=== PATIENT | male | born 1940 | race Caucasian/White ===

== ENCOUNTER 2018-03-13 07:22 | Emergency (ER) | payer MEDICARE, OTHER, SELFPAY ==
[2018-03-13] VITALS (8 sets, daily range): BP systolic 138–160; BP diastolic 81–102; PULSE 67–95; RESP 15–18; TEMP 36.4; O2SAT 97–100; BMI 26.9
--- NOTE | 2018-03-13 07:54 | DI.CT.S_ITS ---
PROCEDURE: CT HEAD/BRAIN WO CON INDICATIONS: dizziness TECHNIQUE: Noncontrast 4.5 mm thick angled axial sections acquired from the foramen magnum to the vertex, with coronal and sagittal reformats. For radiation dose reduction, the following was used: automated exposure control, adjustment of mA and/or kV according to patient size. COMPARISON: None. FINDINGS: Image quality: Excellent. CSF spaces: Basal cisterns are patent. No extra-axial fluid collections. The ventricles are symmetric in size and shape. Brain: No intracranial bleeds or masses. There is cerebral volume loss for age, with resultant ventricular and sulcal prominence. There are periventricular and deep white matter chronic small vessel ischemic changes. There is intracranial internal carotid artery atherosclerosis. Skull and face: Calvarium and visualized facial bones appear intact, without suspicious lesions. Sinuses: There is bilateral ethmoid air cell and sphenoid sinus disease. IMPRESSION: Bilateral ethmoid and sphenoid sinus disease. No acute intracranial process. Dictated by: Pankaj Wood M.D. on 03/13/2018 at 9:32 Approved by: Pankaj Wood M.D. on 03/13/2018 at 9:34
[2018-03-13 07:57] LABS: Add Manual Diff / Slide Review NO; Basophils Percent Auto 0.6 % (0-2); Eosinophils Percent Auto 8.9 % (2-4); Hematocrit 45.3 % (41-53); Lymphocytes Percent Auto 16.5 % (25-40); Mean Corpuscular HGB Conc 33.1 % (30-36); Mean Corpuscular Hemoglobin 31.6 PG (26-34); Mean Corpuscular Volume 95.5 fL (80-100); Monocytes Percent Auto 6.5 % (3-14); Neutrophils Absolute Auto 4900 /uL (3000-5900); Neutrophils Percent Auto 67.5 % (50-75); Platelet Count 157 X10^3/uL (150-400); Red Blood Cell Count 4.74 X10^6/uL (4.5-5.9); White Blood Cell Count 7.3 X10^3/uL (4.5-11.0)
[2018-03-13 08:07] LABS: BUN Creatinine Ratio 37.5 (6-22); Blood Urea Nitrogen 30 mg/dL (9-20); Calcium 9.2 mg/dL (8.4-10.2); Carbon Dioxide 26 mmol/L (22-32); Chloride 102 mmol/L (98-107); Estimated Glomerular Filt Rate > 60.0 mL/min (>60); Glucose 109 mg/dL (80-110); HEMOLYSIS 18 (0-50); Potassium 4.7 mmol/L (3.4-5.1); Sodium 139 mmol/L (137-145)
--- NOTE | 2018-03-13 08:15 | ED_ITS ---
HPI - Dizziness General Chief Complaint: Dizziness Stated Complaint: Pt states dizziness Time Seen by Provider: 03/13/18 07:46 Source: patient and family Mode of arrival: ambulatory Limitations: no limitations History of Present Illness HPI Narrative: Patient presents to the emergency department with a chief complaint of dizziness upon waking. He has episodes where the dizziness is much more intense and he feels like he may pass out. He states his dizziness is worse upon sitting or standing and improves when lying flat. He denies recent upper respiratory infection nor runny nose or sore throat. He denies any focal neurologic findings such as numbness, tingling, or weakness. He denies chest pain or shortness of breath. He denies any recent nausea, vomiting or diarrhea. He denies any medication change. He states when he woke up his dizziness was described as the room spinning intensely. Now he states it is just a feeling of lightheadedness. MD complaint: dizziness and lightheadedness Onset (ago): hour(s) Timing: awoke with symptoms Description: sense of movement, room spinning, lightheadedness and off-balance History of similar episodes: Yes History of trauma: No Severity: moderate Relieving factors: remaining still Exacerbating factors: movement Associated symptoms: ataxia Related Data Home Medications Medication Instructions Recorded Confirmed Glucosamine Sulfate (GLUCOSAMINE) 500 mg PO QDAY #0 01/26/11 03/13/18 dutasteride [Avodart] 0.5 mg PO QDAY #0 01/26/11 03/13/18 tamsulosin [Flomax] 0.4 mg PO QDAY #0 01/27/11 03/13/18 Fish Oil (Fish Oil 500 MG Softgel) 1,000 mg PO Q DAY #0 08/04/11 03/13/18 metoprolol succinate 25 mg PO QDAY #0 06/30/16 03/13/18 Previous Rx's Medication Instructions Recorded Glucose: Test Strips 0 str QDAY #100 06/29/17 levothyroxine 0.1 mg PO QAM #90 tab 06/29/17 metformin [Glucophage] 500 mg PO BIDCC #180 tab 06/29/17 Allergies Allergy/AdvReac Type Severity Reaction Status Date / Time No Known Drug Allergies Allergy Verified 03/13/18 09:17 Review of Systems Review of Systems All systems reviewed & are unremarkable except as noted in HPI and below Constitutional Denies chills, Denies fever(s), Denies lethargy and Denies weakness Eyes Denies change in vision, Denies eye discharge, Denies irritation and Denies loss of vision ENT Ears, Nose, Mouth, and Throat: Denies change in voice, Reports dizziness, Denies neck pain and Denies sore throat Cardiovascular Denies chest pain, Denies irregular heart rhythm, Denies lightheadedness, Denies palpitations, Denies dyspnea, Denies dyspnea on exertion and Denies orthopnea Respiratory Denies cough, Denies dyspnea, Denies dyspnea on exertion and Denies wheezing Gastrointestinal Gastrointestinal: Denies abdominal pain, Denies change in bowel habits, Denies diarrhea, Denies nausea and Denies vomiting Genitourinary Denies hematuria, Denies flank pain, Denies urinary incontinence and Denies urinary urgency Musculoskeletal Denies neck pain Integumentary/Breasts Denies pruritus, Denies erythema, Denies rash and Denies wounds Neurologic Denies confusion, Reports dizziness, Denies loss of vision and Denies weakness Psychiatric Denies anxiety, Denies confusion, Denies depression, Denies homicidal ideation and Denies suicidal ideation Endocrine Denies palpitations Hematologic/Lymphatic Denies easy bruising Allergic/Immunologic Denies wheezing PFSH Medical History Atrial fibrillation and flutter (Acute) GI bleed (Acute) HTN (hypertension) (Acute) Surgical History History of tonsillectomy Status post colectomy Status post coronary artery bypass graft Social History Smoking Status: Never smoker Exam Narrative Exam Narrative: Pleasant 78M in mild distress Initial Vital Signs Initial Vital Signs: Vital Signs Temperature 97.5 F L 03/13/18 07:33 Pulse Rate 84 03/13/18 07:33 Respiratory Rate 16 03/13/18 07:33 Blood Pressure 160/101 H 03/13/18 07:33 Pulse Oximetry 100 03/13/18 07:33 Const General: cooperative and well developed Nutritional Appearance: well nourished Orientation: alert, awake, oriented x3 and not confused [facility] Head: normocephalic and atraumatic Ears: external ears normal and TM's normal bilaterally Nose: external nose normal and No nasal discharge Face and sinus: sinuses nontender, face symmetric, no sinus tenderness and No dry mucous membranes Mouth: oral mucosae normal and moist mucous membranes Teeth and gingiva: dentition normal Throat: tonsils normal and uvula midline Eyes General: appearance normal, both eyes and all related structures Eyelids: eyelids normal Conjunctivae: conjunctivae normal Sclera: sclerae normal Pupils: PERRL EOM: EOM intact bilaterally Other: No nystagmus Neck Neck: normal visual inspection, trachea midline, No lymphadenopathy, No midline deformity and No JVD Lymphatic: No lymphedema Chest Chest: normal inspection of the chest Resp Effort & Inspection: normal respiratory effort, able to speak in complete sentences, no respiratory distress and no use of accessory muscles Auscultation: clear to auscultation bilaterally, no rales, no rhonchi and no wheezes Cardio Rate: regular rate Rhythm: abnormal rhythm GI Inspection: non-distended Palpation: soft, no hepatosplenomegaly, No guarding, No pulsatile mass and No tender Auscultation: normal bowel sounds Back/Spine/Pelvis Back: No CVA tenderness Cervical Spine: cervical ROM normal and No pain with cervical ROM Thoracic/Lumbar Spine: thoracic and lumbar spine normal to inspection Skin General: no rashes or lesions noted, No jaundice and No petechiae Neuro General: alert, oriented x3, gait normal and no focal motor deficits Speech: speech normal Scores CHADS-VASc Congestive heart failure: no Hypertension: yes Age 75 years or older: yes Diabetes mellitus: yes Stroke, TIA, or TE: no Vascular disease: yes Age 65 to 74 years: no Sex category (female): Male CHADS-VASc Score: 5 NIH Stroke Scale Level of Conciousness: Alert, keenly responsive Ask month/age: Answers both questions correctly. Open/close eyes, close hand: Performs both tasks correctly Best gaze horizontal: Normal Visual larkin: No visual loss Facial palsy: Normal symetrical movement Left arm drift: No drift for full 10 sec Right arm drift: No drift for full 10 sec Left leg drift: No drift for full 10 sec Right leg drift: No drift for full 10 sec Limb ataxia: Absent Sensory on face/arms/legs: Normal, no sensory loss Best language: No aphasia, normal Dysarthria: Normal Extinction or inattention: No abnormality Total NIH Stroke scale score: 0 Course Orders Ordered: ED Orders 03/13/18 07:46 Basic Metabolic Panel Stat Complete Blood Count AUTO DIFF Stat Troponin I Stat 03/13/18 07:54 CT head/brain wo con Stat Sodium Chloride (Normal Saline 0.9%) 1,000 mls @ 150 mls/hr IV CONT REYNALDO Last Admin: 03/13/18 08:21 Dose: 150 mls/hr Discontinued Medications Sodium Chloride (Normal Saline 0.9%) 1,000 mls @ 500 mls/hr IV BOLUS ONE Stop: 03/13/18 10:44 Reevaluation(s) Reevaluation #1: HINTS Exam: Head Impulse: No saccade, normal smooth eye motion to center Nystagmus: None Test of Skew: No saccade Reevaluation #2: 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 The patient does complain of worsening symptoms during these pauses Time: 08:32 Reevaluation #3: Patient does state that he is feeling bit after fluids. He was orthostatic positive with a heart rate rising from the 60s up into the mid 90s. His blood pressure stayed the same in all 3 positions. He did admit to feeling quite dizzy upon standing. Time: 09:30 Vital Signs - 8 hr 03/13/18 07:33 03/13/18 07:53 03/13/18 08:46 Temperature 97.5 F L 97.5 F L Pulse Rate 84 84 Pulse Rate [Orthostatic Lying] 67 Pulse Rate [Orthostatic Sitting] Pulse Rate [Orthostatic Standing] Respiratory Rate 16 16 Blood Pressure 160/101 H 160/101 H Blood Pressure [Orthostatic Lying] 138/86 H Blood Pressure [Orthostatic Sitting] Blood Pressure [Orthostatic Standing] Blood Pressure [Right Arm] Pulse Oximetry 100 100 03/13/18 08:48 03/13/18 10:42 03/13/18 10:45 Temperature Pulse Rate 76 77 Pulse Rate [Orthostatic Lying] Pulse Rate [Orthostatic Sitting] 76 Pulse Rate [Orthostatic Standing] 95 H Respiratory Rate 15 Blood Pressure Blood Pressure [Orthostatic Lying] Blood Pressure [Orthostatic Sitting] 143/88 H Blood Pressure [Orthostatic Standing] 150/99 H Blood Pressure [Right Arm] 141/86 H 139/82 H Pulse Oximetry 98 97 03/13/18 10:46 Temperature Pulse Rate 76 Pulse Rate [Orthostatic Lying] Pulse Rate [Orthostatic Sitting] Pulse Rate [Orthostatic Standing] Respiratory Rate 15 Blood Pressure Blood Pressure [Orthostatic Lying] Blood Pressure [Orthostatic Sitting] Blood Pressure [Orthostatic Standing] Blood Pressure [Right Arm] 152/102 H Pulse Oximetry 97 MDM - Dizziness Differential Diagnosis Likely benign paroxysmal positional vertigo, orthostatic hypotension, vertebral basilar insufficiency, cerebrovascular accident, acute vestibular neuronitis and transient cerebral ischemia Medical Records Attestation: I reviewed the patient's medical records. Lab Data Attestation: I reviewed the patient's lab results. Result diagrams: 03/13/18 07:46 03/13/18 07:46 Lab Results 03/13/18 03/13/18 Range/Units 07:46 07:46 WBC 7.3 (4.5-11.0) X10^3/uL RBC 4.74 (4.5-5.9) X10^6/uL Hgb 15.0 (13.5-17.5) g/dL Hct 45.3 (41-53) % MCV 95.5 (80-100) fL MCH 31.6 (26-34) PG MCHC 33.1 (30-36) % RDW 14.0 (11.6-14.8) % Plt Count 157 (150-400) X10^3/uL Neut % (Auto) 67.5 (50-75) % Lymph % (Auto) 16.5 L (25-40) % Gilliam % (Auto) 6.5 (3-14) % Eos % (Auto) 8.9 H (2-4) % Baso % (Auto) 0.6 (0-2) % Neut # (Auto) 4900 (2076-2322) /uL Sodium 139 (137-145) mmol/L Potassium 4.7 (3.4-5.1) mmol/L Chloride 102 (98-107) mmol/L Carbon Dioxide 26 (22-32) mmol/L BUN 30 H (9-20) mg/dL Creatinine 0.80 (0.66-1.25) mg/dL Estimated GFR > 60.0 (>60) mL/min BUN/Creatinine Ratio 37.5 H (6-22) Glucose 109 (80-110) mg/dL Calcium 9.2 (8.4-10.2) mg/dL Troponin I < 0.012 (0.01-0.034) ng/mL Imaging Data CT scan - head: My impression: COLLIN Radiologist's impression: PROCEDURE: CT HEAD/BRAIN WO CON INDICATIONS: dizziness TECHNIQUE: Noncontrast 4.5 mm thick angled axial sections acquired from the foramen magnum to the vertex, with coronal and sagittal reformats. For radiation dose reduction, the following was used: automated exposure control, adjustment of mA and/or kV according to patient size. COMPARISON: None. FINDINGS: Image quality: Excellent. CSF spaces: Basal cisterns are patent. No extra-axial fluid collections. The ventricles are symmetric in size and shape. Brain: No intracranial bleeds or masses. There is cerebral volume loss for age , with resultant ventricular and sulcal prominence. There are periventricular and deep white matter chronic small vessel ischemic changes. There is intracranial internal carotid artery atherosclerosis. Skull and face: Calvarium and visualized facial bones appear intact, without suspicious lesions. Sinuses: There is bilateral ethmoid air cell and sphenoid sinus disease. IMPRESSION: Bilateral ethmoid and sphenoid sinus disease. No acute intracranial process. Dictated by: Pankaj Wood M.D. on 03/13/2018 at 9:32 Approved by: Pankaj Wood M.D. on 03/13/2018 at 9:34 ECG Data Attestation: I personally reviewed and interpreted this ECG as follows: Interpretation: AFib in the 60s 70s without ischemia or ectopy MDM Narrative Medical decision making narrative: Multiple etiologies of dizziness considered, many mentioned above. Stroke was considered, CT was normal, NIH stroke scale was normal and symptoms improved after fluids. A rib media was considered but patient remained in a stable AFib for the duration of his visit. Patient was orthostatic by vitals and complaint there for anemia and dehydration were considered. Blood work would suggest no anemia and subtle dehydration. Patient exhibited complete resolution of symptoms after fluids, furthermore he admits to changing his oral intake to fluids because he urinates too frequently when he drinks significant fluid Discharge Plan Departure Patient Disposition: Home, Self-Care Clinical Impression: Acute dehydration, Dizziness Instructions: DI for Dehydration -- Adult, DI for Dizziness-Nonvertigo Activity Restrictions/Additional Instructions: *You have been diagnosed with [ dizziness, dehydration ] *What to do: *Continue to take medications as directed *Follow up with your primary care provider in 2-3 days, call tomorrow for an appointment *Return to ER if you should haveany new, worsening or concerning symptoms Prescriptions: No Action dutasteride [Avodart] 0.5 MG capsule 0.5 mg PO QDAY Qty: 0 RF: 0 Glucosamine Sulfate (GLUCOSAMINE) 500 mg PO QDAY Qty: 0 RF: 0 tamsulosin [Flomax] 0.4 MG capsule,extended release 24hr 0.4 mg PO QDAY Qty: 0 RF: 0 Fish Oil (Fish Oil 500 MG Softgel) 1,000 mg PO Q DAY Qty: 0 RF: 0 metoprolol succinate 50 MG tablet extended release 24 hr 25 mg PO QDAY Qty: 0 RF: 0 Glucose: Test Strips QDAY Qty: 100 RF: 3 metformin [Glucophage] 500 MG tablet 500 mg PO BIDCC Qty: 180 RF: 3 levothyroxine 100 MCG tablet 0.1 mg PO QAM Qty: 90 RF: 3
[2018-03-13] MEDS: SODIUM CHLORIDE 0.9% 1,000 ML 150 ML IV (08:21)
[2018-03-13 08:23] LABS: Troponin I < 0.012 ng/mL (0.01-0.034)
== END 2018-03-13 11:18 | disposition home or self-care (01) ==
PROVIDERS: Emergency Provider Emergency Medicine; PCP Family Medicine
DX: E86.0 Dehydration (principal); R42 Dizziness and giddiness
CPT/HCPCS: 70450; 80048; 81003; 82962; 84484; 85025; 93005; 93041; 96360; 96361; 99284; 99285

== ENCOUNTER → 2018-04-05 08:49 | Outpatient (CLI) | payer MEDICARE, OTHER, SELFPAY ==
[2018-04-05 09:29] LABS: Cholesterol 129 mg/dL (140-199); HDL Cholesterol 44 mg/dL (40-60); LDL Cholesterol Calculated 74 mg/dL (<100); Triglycerides 57 mg/dL (35-150)
[2018-04-05 11:17] LABS: Free T3, Triiodothyronine Free 3.19 pg/mL (2.77-5.27); Free T4, Direct Thyroxine 1.11 ng/dL (0.78-2.19)
[2018-04-05 11:30] LABS: Thyroid Stimulating Hormone 3.02 uIU/mL (0.47-4.68)
--- NOTE | 2018-04-26 12:51 | PC.NURSE ---
This gentleman is a visitor at [facility] today with his who is here for treatment. He reported being dizzy and light headed while speaking with another pt. It seemed to resolved to some extent when he sat down. BP @ 1234 was 97/50, HR 69 IR, Sats 95. Recheck @ 1246 was BP 77/48, HR 76 IR, Sats 96. CBGs were 172. He takes metformin BID but has been out for 3 days and had just refilled his rx. 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 Call placed to ED and spoke with Maggie. Explained our policy of calling 911 but it was decided between us that we would escort him by wheelchair for further workup. The above information was relayed to her and pt escorted by Gifty to ED.
== END ==
PROVIDERS: PCP Family Medicine; Visit Provider Family Medicine
DX: E78.2 Mixed hyperlipidemia (principal); I10 Essential (primary) hypertension; I48.1 Persistent atrial fibrillation
CPT/HCPCS: 36415; 80061; 84439; 84443; 84481

== ENCOUNTER 2018-04-26 12:52 | Emergency (ER) | payer MEDICARE, OTHER, SELFPAY ==
[2018-04-26] VITALS (11 sets, daily range): BP systolic 89–133; BP diastolic 53–88; PULSE 63–98; RESP 13–30; TEMP 36.8; O2SAT 96–100
--- NOTE | 2018-04-26 12:59 | ED.DIZZY ---
HPI - Dizziness General Chief Complaint: Dizziness Stated Complaint: LIGHT HEADED Time Seen by Provider: 04/26/18 12:59 Source: patient Mode of arrival: ambulatory Limitations: no limitations History of Present Illness HPI Narrative: 78-year-old male presents to the emergency department with chief complaint of sudden-onset dizziness upon standing this morning. He has felt completely fine past few days, and felt fine this morning. 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 He denies any recent illness involving nausea, vomiting or diarrhea. He denies any changes medications. He denies any recent chest pain or shortness of breath. He does state that on occasion he has dark stools. MD complaint: dizziness Onset (ago): minute(s) Timing: sudden onset Description: lightheadedness History of similar episodes: No History of trauma: No Severity: mild Relieving factors: remaining still Exacerbating factors: position Associated symptoms: denies other symptoms Related Data Home Medications Medication Instructions Recorded Confirmed dutasteride [Avodart] 0.5 mg PO QDAY #0 01/26/11 04/26/18 glucosamine sulfate [Glucosamine] 500 mg PO DAILY #0 01/26/11 04/26/18 omega [id number] oil [Fish Oil] 1,000 mg PO Q DAY #0 08/04/11 04/26/18 metoprolol succinate 25 mg PO QDAY #0 06/30/16 04/26/18 Glucose: Test Strips #1 ea 04/08/18 04/26/18 atorvastatin 40 mg tablet 40 mg PO QPM 04/08/18 04/26/18 ascorbic acid (vitamin C) [Vitamin 500 mg PO DAILY 04/26/18 04/26/18 C] lisinopril 5 mg PO DAILY 04/26/18 04/26/18 omeprazole 20 mg PO DAILY 04/26/18 04/26/18 Previous Rx's Medication Instructions Recorded levothyroxine 0.1 mg PO QAM #90 tab 06/29/17 metformin [Glucophage] 500 mg PO BIDCC #180 tab 06/29/17 tamsulosin 0.4 mg capsule 0.8 mg PO QDAY #180 cap 03/15/18 Allergies Allergy/AdvReac Type Severity Reaction Status Date / Time No Known Drug Allergies Allergy Verified 07/06/18 09:00 Review of Systems Review of Systems All systems reviewed & are unremarkable except as noted in HPI and below Constitutional Denies chills, Denies fever(s), Denies lethargy and Denies weakness Eyes Denies change in vision, Denies eye discharge, Denies irritation and Denies loss of vision ENT Ears, Nose, Mouth, and Throat: Denies change in voice, Denies neck pain and Denies sore throat Cardiovascular Denies chest pain, Denies irregular heart rhythm, Denies lightheadedness, Denies palpitations, Denies dyspnea, Denies dyspnea on exertion and Denies orthopnea Respiratory Denies cough, Denies dyspnea, Denies dyspnea on exertion and Denies wheezing Gastrointestinal Gastrointestinal: Denies abdominal pain, Denies change in bowel habits, Denies diarrhea, Denies nausea and Denies vomiting Genitourinary Denies hematuria, Denies flank pain, Denies urinary incontinence and Denies urinary urgency Musculoskeletal Denies neck pain Integumentary/Breasts Denies pruritus, Denies erythema, Denies rash and Denies wounds Neurologic Denies confusion, Denies loss of vision and Denies weakness Psychiatric Denies anxiety, Denies confusion, Denies depression, Denies homicidal ideation and Denies suicidal ideation Endocrine Denies palpitations Hematologic/Lymphatic Denies easy bruising Allergic/Immunologic Denies wheezing PFSH Medical History Atrial fibrillation (Chronic) BPH (benign prostatic hyperplasia) (Chronic) Atrial fibrillation and flutter (Acute) GI bleed (Acute) HTN (hypertension) (Acute) CKD (chronic kidney disease) (Chronic) Coronary artery disease (Chronic) Diabetes (Chronic) Diverticular disease (Chronic) Hyperlipemia (Chronic) Hypothyroidism (Chronic) Social History Smoking Status: Never smoker alcohol intake: never Exam Initial Vital Signs Initial Vital Signs: Vital Signs Temperature 98.2 F 04/26/18 13:05 Pulse Rate 88 04/26/18 13:05 Respiratory Rate 18 04/26/18 13:05 Blood Pressure 97/61 04/26/18 13:05 Pulse Oximetry 99 04/26/18 13:05 Const General: cooperative and well developed Nutritional Appearance: well nourished Orientation: alert, awake, oriented x3 and not confused [place] Head: normocephalic and atraumatic Ears: external ears normal and TM's normal bilaterally Nose: external nose normal and No nasal discharge Face and sinus: sinuses nontender, face symmetric, no sinus tenderness and No dry mucous membranes Mouth: oral mucosae normal and moist mucous membranes Teeth and gingiva: dentition normal Throat: tonsils normal and uvula midline Eyes General: appearance normal, both eyes and all related structures Eyelids: eyelids normal Conjunctivae: conjunctivae normal Sclera: sclerae normal Pupils: PERRL EOM: EOM intact bilaterally Neck Neck: normal visual inspection, trachea midline, No lymphadenopathy, No midline deformity and No JVD Lymphatic: No lymphedema Chest Chest: normal inspection of the chest Resp Effort & Inspection: normal respiratory effort, able to speak in complete sentences, no respiratory distress and no use of accessory muscles Auscultation: clear to auscultation bilaterally, no rales, no rhonchi and no wheezes Cardio Rate: regular rate Rhythm: regular rhythm Heart Sounds: no click, no gallops, no murmurs and no rubs Pulses: normal peripheral pulses GI Inspection: non-distended Palpation: soft, no hepatosplenomegaly, No guarding, No pulsatile mass and No tender Auscultation: normal bowel sounds Back/Spine/Pelvis Back: No CVA tenderness Cervical Spine: cervical ROM normal and No pain with cervical ROM Thoracic/Lumbar Spine: thoracic and lumbar spine normal to inspection Skin General: no rashes or lesions noted, No jaundice and No petechiae Neuro General: alert, oriented x3, gait normal and no focal motor deficits Speech: speech normal Extrem General: full ROM, no clubbing, cyanosis or edema, no pedal edema and no calf tenderness Psych Appearance: well kempt Mental Status: mental status grossly normal Attitude: cooperative Thought Content: normal and suicidality Judgment: judgment good Course Orders Ordered: ED Orders 04/26/18 13:17 Complete Blood Count AUTO DIFF Stat Comprehensive Metabolic Panel Stat Partial Thromboplastin Time Stat Prothrombin Time INR Stat Type and Screen Stat Discontinued Medications Sodium Chloride (Normal Saline 0.9%) 1,000 mls @ 1,000 mls/hr IV BOLUS ONE Stop: 04/26/18 14:45 Last Infusion: 04/26/18 15:53 Dose: 0 mls/hr Infusion: 04/26/18 15:13 Dose: 1,000 mls/hr Infusion: 04/26/18 14:30 Dose: 150 mls/hr Admin: 04/26/18 13:47 Dose: 1,000 mls/hr Pantoprazole Sodium (Protonix) 40 mg IV NOW ONE Stop: 04/26/18 13:13 Last Admin: 04/26/18 13:23 Dose: 40 mg Reevaluation(s) Reevaluation #1: Patient feels complete resolution of symptoms after fluids. [place] through we did orthostatics that showed a slight elevation of heart rate upon standing and he was symptomatic. He just did ambulation trial through the department after completion of fluids and now feels totally normal. Vital Signs - 8 hr 04/26/18 13:05 04/26/18 13:33 04/26/18 13:39 Temperature 98.2 F Pulse Rate 88 88 78 Pulse Rate [Orthostatic Lying] Pulse Rate [Orthostatic Sitting] Pulse Rate [Orthostatic Standing] Respiratory Rate 18 19 16 Blood Pressure Blood Pressure [Orthostatic Lying] Blood Pressure [Orthostatic Sitting] Blood Pressure [Orthostatic Standing] Blood Pressure [Right Arm] 97/61 89/61 L 89/61 L Pulse Oximetry 99 97 100 04/26/18 14:00 04/26/18 14:44 04/26/18 14:54 Temperature 98.2 F Pulse Rate 98 H 73 98 H Pulse Rate [Orthostatic Lying] Pulse Rate [Orthostatic Sitting] Pulse Rate [Orthostatic Standing] Respiratory Rate 30 H 13 30 H Blood Pressure 99/57 L Blood Pressure [Orthostatic Lying] Blood Pressure [Orthostatic Sitting] Blood Pressure [Orthostatic Standing] Blood Pressure [Right Arm] 99/57 L 92/61 104/57 L Pulse Oximetry 98 96 98 04/26/18 15:02 04/26/18 15:14 04/26/18 16:03 Temperature Pulse Rate 72 63 Pulse Rate [Orthostatic Lying] 66 Pulse Rate [Orthostatic Sitting] 68 Pulse Rate [Orthostatic Standing] 85 Respiratory Rate 18 17 Blood Pressure Blood Pressure [Orthostatic Lying] 104/57 L Blood Pressure [Orthostatic Sitting] 106/53 L Blood Pressure [Orthostatic Standing] 101/68 Blood Pressure [Right Arm] 110/61 110/62 Pulse Oximetry 98 96 04/26/18 16:25 04/26/18 16:43 Temperature Pulse Rate 85 79 Pulse Rate [Orthostatic Lying] Pulse Rate [Orthostatic Sitting] Pulse Rate [Orthostatic Standing] Respiratory Rate 18 18 Blood Pressure 133/88 H Blood Pressure [Orthostatic Lying] Blood Pressure [Orthostatic Sitting] Blood Pressure [Orthostatic Standing] Blood Pressure [Right Arm] Pulse Oximetry 99 99 MDM - Dizziness Lab Data Result diagrams: 04/26/18 13:17 04/26/18 13:17 Lab Results 04/26/18 04/26/18 04/26/18 Range/Units 13:17 13:17 13:17 WBC 7.3 (4.5-11.0) X10^3/uL RBC 4.71 (4.5-5.9) X10^6/uL Hgb 15.0 (13.5-17.5) g/dL Hct 45.1 (41-53) % MCV 95.8 (80-100) fL MCH 31.9 (26-34) PG MCHC 33.3 (30-36) % RDW 13.9 (11.6-14.8) % Plt Count 161 (150-400) X10^3/uL Neut % (Auto) 65.6 (50-75) % Lymph % (Auto) 19.9 L (25-40) % [place] % (Auto) 6.0 (3-14) % Eos % (Auto) 7.7 H (2-4) % Baso % (Auto) 0.8 (0-2) % Neut # (Auto) 4800 (4978-1655) /uL PT 12.3 (10.1-12.7) SECONDS INR 1.1 (0.9-1.3) APTT 30 (26.4-36.2) SECONDS Sodium 138 (137-145) mmol/L Potassium 4.6 (3.4-5.1) mmol/L Chloride 102 (98-107) mmol/L Carbon Dioxide 24 (22-32) mmol/L BUN 23 H (9-20) mg/dL Creatinine 1.00 (0.66-1.25) mg/dL Estimated GFR > 60.0 (>60) mL/min BUN/Creatinine Ratio 23.0 H (6-22) Glucose 185 H (80-110) mg/dL Calcium 9.3 (8.4-10.2) mg/dL Total Bilirubin 0.9 (0.2-1.3) mg/dL AST 30 (17-59) IU/L ALT 21 (21-72) IU/L Alkaline Phosphatase 69 (38-126) U/L Total Protein 6.9 (6.3-8.2) g/dL Albumin 4.3 (3.5-5.0) g/dL Globulin 2.6 (1.7-4.1) g/dL Albumin/Globulin Ratio 1.7 (1.0-2.8) Blood Type Antibody Screen 04/26/18 Range/Units 13:17 WBC (4.5-11.0) X10^3/uL RBC (4.5-5.9) X10^6/uL Hgb (13.5-17.5) g/dL Hct (41-53) % MCV (80-100) fL MCH (26-34) PG MCHC (30-36) % RDW (11.6-14.8) % Plt Count (150-400) X10^3/uL Neut % (Auto) (50-75) % Lymph % (Auto) (25-40) % [place] % (Auto) (3-14) % Eos % (Auto) (2-4) % Baso % (Auto) (0-2) % Neut # (Auto) (7776-2560) /uL PT (10.1-12.7) SECONDS INR (0.9-1.3) APTT (26.4-36.2) SECONDS Sodium (137-145) mmol/L Potassium (3.4-5.1) mmol/L Chloride (98-107) mmol/L Carbon Dioxide (22-32) mmol/L BUN (9-20) mg/dL Creatinine (0.66-1.25) mg/dL Estimated GFR (>60) mL/min BUN/Creatinine Ratio (6-22) Glucose (80-110) mg/dL Calcium (8.4-10.2) mg/dL Total Bilirubin (0.2-1.3) mg/dL AST (17-59) IU/L ALT (21-72) IU/L Alkaline Phosphatase (38-126) U/L Total Protein (6.3-8.2) g/dL Albumin (3.5-5.0) g/dL Globulin (1.7-4.1) g/dL Albumin/Globulin Ratio (1.0-2.8) Blood Type B Positive Antibody Screen Negative Discharge Plan Departure Patient Disposition: Home, Self-Care Clinical Impression: Orthostatic hypotension Discharge Date/Time: 04/26/18 16:44 Interventions: ED Discharge Assessment Last Done: 04/26/18 16:43 Instructions: DI for Dehydration -- Adult Activity Restrictions/Additional Instructions: 1. Drink plenty of fluids with frequent small sips. 2. For the next 24 hours a clear liquid diet is advised. After that please employ a brat diet which would include bananas, rice, apples, toast. 3. Please take medications as directed. 4. Please follow-up with your doctor in the next 1-2 days. Call the office for an appointment. 5. Please return to the emergency Department for any worsening or persistent symptoms, such as increasing pain or fever. Prescriptions: No Action Glucose: Test Strips .ROUTE .MEDSUPPLY Qty: 1 RF: 0 atorvastatin 40 mg tablet 40 mg PO QPM RF: 0 tamsulosin [Flomax] 0.4 mg capsule,extended release 24hr 0.8 mg PO QDAY Qty: 180 RF: 3 glucosamine sulfate [Glucosamine] 500 mg Tablet 500 mg PO DAILY Qty: 0 RF: 0 dutasteride [Avodart] 0.5 MG capsule 0.5 mg PO QDAY Qty: 0 RF: 0 omega [id number]-fish oil [Fish Oil] 1,000 mg (120 mg-180 mg) Capsule 1,000 mg PO Q DAY Qty: 0 RF: 0 metoprolol succinate 50 MG tablet extended release 24 hr 25 mg PO QDAY Qty: 0 RF: 0 metformin [Glucophage] 500 MG tablet 500 mg PO BIDCC Qty: 180 RF: 3 levothyroxine 100 MCG tablet 0.1 mg PO QAM Qty: 90 RF: 3 lisinopril 5 mg tablet 5 mg PO DAILY RF: 0 ascorbic acid (vitamin C) [Vitamin C] 500 mg Tablet 500 mg PO DAILY RF: 0 omeprazole 20 mg Capsule,Delayed Release(Dr/Ec) 20 mg PO DAILY RF: 0 Referrals: Marybel Edwards DO [Primary Care Provider] -
[2018-04-26] MEDS: PANTOPRAZOLE 40 MG VIAL IV (13:23)
[2018-04-26 13:31] LABS: Add Manual Diff / Slide Review NO; Basophils Percent Auto 0.8 % (0-2); Eosinophils Percent Auto 7.7 % (2-4); Hematocrit 45.1 % (41-53); Lymphocytes Percent Auto 19.9 % (25-40); Mean Corpuscular HGB Conc 33.3 % (30-36); Mean Corpuscular Hemoglobin 31.9 PG (26-34); Mean Corpuscular Volume 95.8 fL (80-100); Neutrophils Absolute Auto 4800 /uL (3000-5900); Neutrophils Percent Auto 65.6 % (50-75); Platelet Count 161 X10^3/uL (150-400); Red Blood Cell Count 4.71 X10^6/uL (4.5-5.9); Red Cell Distribution Width 13.9 % (11.6-14.8); White Blood Cell Count 7.3 X10^3/uL (4.5-11.0)
[2018-04-26 13:36] LABS: INR 1.1 (0.9-1.3); Prothrombin Time 12.3 SECONDS (10.1-12.7)
[2018-04-26 13:39] LABS: PTT Partial Thromboplastin Tim 30 SECONDS (26.4-36.2)
[2018-04-26 13:41] LABS: Alanine Aminotransferase 21 IU/L (21-72); Albumin 4.3 g/dL (3.5-5.0); Albumin Globulin Ratio 1.7 (1.0-2.8); Alkaline Phosphatase 69 U/L (38-126); Aspartate Aminotransferase 30 IU/L (17-59); Bilirubin Total 0.9 mg/dL (0.2-1.3); Blood Urea Nitrogen 23 mg/dL (9-20); Calcium 9.3 mg/dL (8.4-10.2); Carbon Dioxide 24 mmol/L (22-32); Chloride 102 mmol/L (98-107); Estimated Glomerular Filt Rate > 60.0 mL/min (>60); Globulin 2.6 g/dL (1.7-4.1); Glucose 185 mg/dL (80-110); HEMOLYSIS 31 (0-50); Potassium 4.6 mmol/L (3.4-5.1); Sodium 138 mmol/L (137-145); Total Protein 6.9 g/dL (6.3-8.2)
[2018-04-26] MEDS: SODIUM CHLORIDE 0.9% 1,000 ML 1000 ML IV (13:47)
--- NOTE | 2018-04-26 16:26 | PC.NURSE ---
patient ambulated with out any difficultly and no lightheaded or dizziness
== END 2018-04-26 16:44 | disposition home or self-care (01) ==
PROVIDERS: Emergency Provider Emergency Medicine; PCP Family Medicine
DX: I95.1 Orthostatic hypotension (principal)
CPT/HCPCS: 36591; 80053; 85025; 85610; 85730; 86850; 86900; 86901; 93005; 96361; 96374; 99284; 99285; C9113

== ENCOUNTER → 2018-05-30 10:01 | Outpatient (CLI) | payer MEDICARE, OTHER, SELFPAY ==
[2018-05-30 11:37] LABS: Creatinine Urine Random 51.2 mg/dL; Protein (Total) Urine Random 27 mg/dL (0-12); Protein Creatinine Ratio Urine 0.52 GRAM/24H
[2018-05-30 11:45] LABS: Microalbumi Creatinin Ratio Ur 191.4 ug/mg CR (<30); Microalbumin Urine Random 9.8 mg/dL (0-1.6)
[2018-05-30 12:23] LABS: Add Manual Diff / Slide Review NO; Basophils Percent Auto 0.3 % (0-2); Eosinophils Percent Auto 9.4 % (2-4); Hematocrit 43.5 % (41-53); Hemoglobin 14.6 g/dL (13.5-17.5); Lymphocytes Percent Auto 17.8 % (25-40); Mean Corpuscular HGB Conc 33.6 % (30-36); Mean Corpuscular Hemoglobin 32.1 PG (26-34); Mean Corpuscular Volume 95.3 fL (80-100); Monocytes Percent Auto 6.9 % (3-14); Neutrophils Absolute Auto 4900 /uL (3000-5900); Neutrophils Percent Auto 65.6 % (50-75); Platelet Count 174 X10^3/uL (150-400); Red Blood Cell Count 4.57 X10^6/uL (4.5-5.9); White Blood Cell Count 7.4 X10^3/uL (4.5-11.0)
[2018-05-30 12:41] LABS: Hemoglobin A1C% w Est Avg Glu 6.2 % (4.0-6.0)
[2018-05-30 12:53] LABS: Alanine Aminotransferase 25 IU/L (21-72); Albumin 4.2 g/dL (3.5-5.0); Albumin Globulin Ratio 1.6 (1.0-2.8); Alkaline Phosphatase 76 U/L (38-126); Aspartate Aminotransferase 28 IU/L (17-59); BUN Creatinine Ratio 28.9 (6-22); Bilirubin Total 0.9 mg/dL (0.2-1.3); Blood Urea Nitrogen 26 mg/dL (9-20); Calcium 9.5 mg/dL (8.4-10.2); Carbon Dioxide 28 mmol/L (22-32); Chloride 102 mmol/L (98-107); Cholesterol 123 mg/dL (140-199); Estimated Glomerular Filt Rate > 60.0 mL/min (>60); Globulin 2.6 g/dL (1.7-4.1); Glucose 94 mg/dL (80-110); HDL Cholesterol 47 mg/dL (40-60); HEMOLYSIS < 15 (0-50); LDL Cholesterol Calculated 61 mg/dL (<100); Sodium 141 mmol/L (137-145); Total Protein 6.8 g/dL (6.3-8.2); Triglycerides 73 mg/dL (35-150)
[2018-06-01 14:02] LABS: Parathyroid Hormone Int 71 pg/mL (14-64)
== END ==
PROVIDERS: PCP Family Medicine; Visit Provider Student in an Organized Health Care Education/Training Program
DX: E11.9 Type 2 diabetes mellitus without complications (principal); E78.5 Hyperlipidemia, unspecified; I10 Essential (primary) hypertension; Z51.81 Encounter for therapeutic drug level monitoring
CPT/HCPCS: 36415; 80053; 80061; 82043; 82570; 83036; 83970; 84156; 85025

== ENCOUNTER → 2018-11-23 08:00 | Outpatient (CLI) | payer MEDICARE, OTHER, SELFPAY ==
[2018-11-23 09:34] LABS: Add Manual Diff / Slide Review NO; Basophils Absolute Auto 0 /uL (0-100); Basophils Percent Auto 0.6 % (0-2); Eosinophils Absolute Auto 500 /uL (0-450); Eosinophils Percent Auto 6.8 % (2-4); Hematocrit 47.7 % (41-53); Hemoglobin 15.6 g/dL (13.5-17.5); Lymphocytes Absolute Auto 1500 /uL (1100-4500); Lymphocytes Percent Auto 19.4 % (25-40); Mean Corpuscular HGB Conc 32.7 % (30-36); Mean Corpuscular Hemoglobin 31.4 PG (26-34); Monocytes Absolute Auto 500 /uL (0-900); Monocytes Percent Auto 7.2 % (3-14); Neutrophils Absolute Auto 5000 /uL (1500-7000); Platelet Count 169 X10^3/uL (150-400); Red Blood Cell Count 4.97 X10^6/uL (4.5-5.9); Red Cell Distribution Width 14.9 % (11.6-14.8); White Blood Cell Count 7.6 X10^3/uL (4.5-11.0)
[2018-11-23 09:47] LABS: Appearance Urine UA CLEAR; Bilirubin Urine UA NEGATIVE (NEGATIVE); Color Urine UA YELLOW; Glucose Urine UA NEGATIVE (Negative); Ketones Urine UA NEGATIVE (NEGATIVE); Leukocyte Esterase Urine UA NEGATIVE (NEGATIVE); Nitrite Urine UA NEGATIVE (Negative); Occult Blood Urine UA TRACE-LYSED (Negative); Protein Urine UA 2+ (Negative); Specific Gravity Urine UA 1.025 (1.000-1.035); Urobilinogen Urine UA 0.2 E.U./dL (0.2)
[2018-11-23 09:48] LABS: Alanine Aminotransferase 29 IU/L (21-72); Albumin 4.5 g/dL (3.5-5.0); Albumin Globulin Ratio 1.3 (1.0-2.8); Alkaline Phosphatase 92 U/L (38-126); Aspartate Aminotransferase 30 IU/L (17-59); BUN Creatinine Ratio 31.1 (6-22); Blood Urea Nitrogen 28 mg/dL (9-20); Calcium 9.7 mg/dL (8.4-10.2); Carbon Dioxide 27 mmol/L (22-32); Chloride 101 mmol/L (98-107); Cholesterol 139 mg/dL (140-199); Estimated Glomerular Filt Rate > 60.0 mL/min (>60); Globulin 3.4 g/dL (1.7-4.1); Glucose 107 mg/dL (80-110); HDL Cholesterol 46 mg/dL (40-60); HEMOLYSIS 16 (0-50); LDL Cholesterol Calculated 72 mg/dL (<100); Potassium 5.4 mmol/L (3.4-5.1); Sodium 138 mmol/L (137-145); Total Protein 7.9 g/dL (6.3-8.2); Triglycerides 105 mg/dL (35-150)
[2018-11-23 10:31] LABS: Thyroid Stimulating Hormone 3.03 uIU/mL (0.47-4.68)
== END ==
PROVIDERS: PCP Family Medicine; Visit Provider Family Medicine
DX: E11.9 Type 2 diabetes mellitus without complications (principal); E78.5 Hyperlipidemia, unspecified; I10 Essential (primary) hypertension; I48.91 Unspecified atrial fibrillation; N40.0 Benign prostatic hyperplasia without lower urinary tract symptoms; Z98.890 Other specified postprocedural states
CPT/HCPCS: 36415; 80053; 80061; 81003; 83036; 84443; 85025

== ENCOUNTER → 2018-12-16 08:30 | Outpatient (CLI) | payer MEDICARE, OTHER, SELFPAY ==
[2018-12-16 09:32] LABS: Hemoglobin 15.2 g/dL (13.5-17.5)
[2018-12-16 10:06] LABS: BUN Creatinine Ratio 23.8 (6-22); Blood Urea Nitrogen 19 mg/dL (9-20); Calcium 9.5 mg/dL (8.4-10.2); Carbon Dioxide 28 mmol/L (22-32); Chloride 99 mmol/L (98-107); Estimated Glomerular Filt Rate > 60.0 mL/min (>60); Glucose 100 mg/dL (80-110); HEMOLYSIS < 15 (0-50); Potassium 4.5 mmol/L (3.4-5.1); Sodium 137 mmol/L (137-145)
[2018-12-16 10:09] LABS: Creatinine Urine Random 25.5 mg/dL; Protein (Total) Urine Random 52 mg/dL (0-12); Protein Creatinine Ratio Urine 2.03 GRAM/24H
[2018-12-20 15:52] LABS: Parathyroid Hormone Int 79 pg/mL (14-64)
== END ==
PROVIDERS: Family Provider Family Medicine; PCP Family Medicine; Visit Provider Student in an Organized Health Care Education/Training Program
DX: N05.9 Unspecified nephritic syndrome with unspecified morphologic changes (principal); D64.9 Anemia, unspecified; R80.9 Proteinuria, unspecified; N25.81 Secondary hyperparathyroidism of renal origin
CPT/HCPCS: 36415; 80048; 82570; 83970; 84156; 85014; 85018

== ENCOUNTER → 2019-01-18 08:20 | Outpatient (CLI) | payer MEDICARE, OTHER, SELFPAY ==
[2019-01-18 08:31] LABS: Bacteria Urine None Seen; RBC Urine None Seen (0-5/HPF); WBC Urine None Seen (0-5/HPF)
[2019-01-18 09:45] LABS: Alanine Aminotransferase 22 IU/L (21-72); Albumin 4.3 g/dL (3.5-5.0); Albumin Globulin Ratio 1.5 (1.0-2.8); Alkaline Phosphatase 85 U/L (38-126); Aspartate Aminotransferase 28 IU/L (17-59); BUN Creatinine Ratio 25.6 (6-22); Bilirubin Total 0.9 mg/dL (0.2-1.3); Blood Urea Nitrogen 23 mg/dL (9-20); Calcium 9.7 mg/dL (8.4-10.2); Carbon Dioxide 27 mmol/L (22-32); Chloride 102 mmol/L (98-107); Cholesterol 126 mg/dL (140-199); Estimated Glomerular Filt Rate > 60.0 mL/min (>60); Globulin 2.9 g/dL (1.7-4.1); Glucose 104 mg/dL (80-110); HDL Cholesterol 49 mg/dL (40-60); HEMOLYSIS < 15 (0-50); LDL Cholesterol Calculated 60 mg/dL (<100); Sodium 138 mmol/L (137-145); Total Protein 7.2 g/dL (6.3-8.2); Triglycerides 83 mg/dL (35-150)
[2019-01-18 11:58] LABS: Appearance Urine UA CLEAR; Bilirubin Urine UA NEGATIVE (NEGATIVE); Color Urine UA YELLOW; Glucose Urine UA NEGATIVE (Negative); Ketones Urine UA NEGATIVE (NEGATIVE); Leukocyte Esterase Urine UA NEGATIVE (NEGATIVE); Nitrite Urine UA NEGATIVE (Negative); Occult Blood Urine UA NEGATIVE (Negative); Protein Urine UA 1+ (Negative); Urobilinogen Urine UA 0.2 E.U./dL (0.2); pH Urine UA 5.5 (4.5-8.0)
[2019-01-18 12:04] LABS: Creatinine Urine Random 100.3 mg/dL; Protein (Total) Urine Random 76 mg/dL (0-12); Protein Creatinine Ratio Urine 0.75 GRAM/24H
[2019-01-18 12:05] LABS: Culture Indicated Urine Cult Not Indicated; Urine Comments Microscopic Normal
[2019-01-21 16:16] LABS: Parathyroid Hormone Int 71 pg/mL (14-64)
== END ==
PROVIDERS: Family Provider Family Medicine; PCP Family Medicine; Referring Provider Internal Medicine Cardiovascular Disease; Visit Provider Student in an Organized Health Care Education/Training Program
DX: I48.91 Unspecified atrial fibrillation (principal); N18.9 Chronic kidney disease, unspecified; I12.9 Hypertensive chronic kidney disease with stage 1 through stage 4 chronic kidney disease, or unspecified chronic kidney disease; E11.9 Type 2 diabetes mellitus without complications; I25.10 Atherosclerotic heart disease of native coronary artery without angina pectoris; N30.00 Acute cystitis without hematuria; R80.9 Proteinuria, unspecified; Z51.81 Encounter for therapeutic drug level monitoring
CPT/HCPCS: 36415; 80053; 80061; 81001; 82570; 83970; 84156

== ENCOUNTER → 2019-01-25 08:13 | Outpatient (CLI) | payer MEDICARE, OTHER, SELFPAY ==
[2019-01-25 08:44] LABS: RBC Urine None Seen (0-5/HPF)
[2019-01-25 09:26] LABS: Appearance Urine UA CLEAR; Bilirubin Urine UA NEGATIVE (NEGATIVE); Color Urine UA YELLOW; Glucose Urine UA NEGATIVE (Negative); Ketones Urine UA NEGATIVE (NEGATIVE); Leukocyte Esterase Urine UA NEGATIVE (NEGATIVE); Nitrite Urine UA NEGATIVE (Negative); Occult Blood Urine UA NEGATIVE (Negative); Protein Urine UA 1+ (Negative); Specific Gravity Urine UA 1.015 (1.000-1.035); Urobilinogen Urine UA 0.2 E.U./dL (0.2); pH Urine UA 5.5 (4.5-8.0)
[2019-01-25 09:40] LABS: WBC Urine 0-1/HPF (0-5/HPF)
[2019-01-25 09:41] LABS: Bacteria Urine Occasional (0-1); Culture Indicated Urine Cult Not Indicated
[2019-01-25 10:04] LABS: BUN Creatinine Ratio 27.8 (6-22); Blood Urea Nitrogen 25 mg/dL (9-20); Calcium 9.5 mg/dL (8.4-10.2); Carbon Dioxide 29 mmol/L (22-32); Chloride 99 mmol/L (98-107); Estimated Glomerular Filt Rate > 60.0 mL/min (>60); Glucose 108 mg/dL (80-110); HEMOLYSIS < 15 (0-50); Potassium 5.2 mmol/L (3.4-5.1); Sodium 137 mmol/L (137-145)
[2019-01-25 10:15] LABS: Creatinine Urine Random 42.6 mg/dL; Protein (Total) Urine Random 71 mg/dL (0-12); Protein Creatinine Ratio Urine 1.66 GRAM/24H
[2019-01-28 17:39] LABS: Parathyroid Hormone Int 19 pg/mL (14-64)
== END ==
PROVIDERS: Family Provider Family Medicine; PCP Family Medicine; Visit Provider Student in an Organized Health Care Education/Training Program
DX: N05.9 Unspecified nephritic syndrome with unspecified morphologic changes (principal); N25.81 Secondary hyperparathyroidism of renal origin; N30.00 Acute cystitis without hematuria; R80.9 Proteinuria, unspecified
CPT/HCPCS: 36415; 80048; 81001; 82570; 83970; 84156

== ENCOUNTER → 2019-02-23 08:23 | Outpatient (CLI) | payer MEDICARE, OTHER, SELFPAY ==
[2019-02-23 09:07] LABS: HEMOLYSIS < 15 (0-50); Potassium 4.5 mmol/L (3.4-5.1)
== END ==
PROVIDERS: PCP Family Medicine; Visit Provider Student in an Organized Health Care Education/Training Program
DX: E87.5 Hyperkalemia (principal)
CPT/HCPCS: 36415; 84132

== ENCOUNTER → 2019-02-25 08:04 | Outpatient (CLI) | payer MEDICARE, OTHER, SELFPAY ==
[2019-02-25 10:24] LABS: BUN Creatinine Ratio 31.1 (6-22); Blood Urea Nitrogen 28 mg/dL (9-20); Calcium 9.8 mg/dL (8.4-10.2); Carbon Dioxide 26 mmol/L (22-32); Chloride 104 mmol/L (98-107); Estimated Glomerular Filt Rate > 60.0 mL/min (>60); Glucose 103 mg/dL (80-110); HEMOLYSIS < 15 (0-50); Potassium 5.1 mmol/L (3.4-5.1); Sodium 138 mmol/L (137-145)
[2019-02-25 10:27] LABS: Creatinine Urine Random 101.5 mg/dL; Protein (Total) Urine Random 90 mg/dL (0-12); Protein Creatinine Ratio Urine 0.88 GRAM/24H
== END ==
PROVIDERS: PCP Family Medicine; Visit Provider Student in an Organized Health Care Education/Training Program
DX: N05.9 Unspecified nephritic syndrome with unspecified morphologic changes (principal); R80.9 Proteinuria, unspecified
CPT/HCPCS: 36415; 80048; 82570; 84156

== ENCOUNTER → 2019-05-22 10:01 | Outpatient (CLI) | payer MEDICARE, OTHER, SELFPAY ==
[2019-05-22 10:40] LABS: Hemoglobin A1C% w Est Avg Glu 5.8 % (4.0-6.0)
[2019-05-22 10:46] LABS: Alanine Aminotransferase 22 IU/L (21-72); Albumin 4.2 g/dL (3.5-5.0); Albumin Globulin Ratio 1.3 (1.0-2.8); Alkaline Phosphatase 89 U/L (38-126); Aspartate Aminotransferase 26 IU/L (17-59); Bilirubin Total 0.8 mg/dL (0.2-1.3); Blood Urea Nitrogen 22 mg/dL (9-20); Calcium 9.9 mg/dL (8.4-10.2); Carbon Dioxide 27 mmol/L (22-32); Chloride 102 mmol/L (98-107); Cholesterol 128 mg/dL (140-199); Estimated Glomerular Filt Rate > 60.0 mL/min (>60); Globulin 3.2 g/dL (1.7-4.1); Glucose 104 mg/dL (80-110); HDL Cholesterol 52 mg/dL (40-60); HEMOLYSIS 19 (0-50); LDL Cholesterol Calculated 62 mg/dL (<100); Potassium 4.3 mmol/L (3.4-5.1); Sodium 140 mmol/L (137-145); Total Protein 7.4 g/dL (6.3-8.2); Triglycerides 71 mg/dL (35-150)
[2019-05-22 11:41] LABS: Thyroid Stimulating Hormone 6.74 uIU/mL (0.47-4.68)
== END ==
PROVIDERS: PCP Family Medicine; Visit Provider Family Medicine
DX: E11.40 Type 2 diabetes mellitus with diabetic neuropathy, unspecified (principal); I48.91 Unspecified atrial fibrillation; N18.9 Chronic kidney disease, unspecified; Z51.81 Encounter for therapeutic drug level monitoring
CPT/HCPCS: 36415; 80053; 80061; 83036; 84443

== ENCOUNTER → 2019-05-26 08:05 | Outpatient (CLI) | payer MEDICARE, OTHER, SELFPAY ==
[2019-05-26 08:59] LABS: Hematocrit 44.2 % (41-53)
[2019-05-26 09:18] LABS: Blood Urea Nitrogen 33 mg/dL (9-20); Calcium 9.7 mg/dL (8.4-10.2); Carbon Dioxide 27 mmol/L (22-32); Chloride 104 mmol/L (98-107); Estimated Glomerular Filt Rate > 60.0 mL/min (>60); Glucose 106 mg/dL (80-110); HEMOLYSIS < 15 (0-50); Sodium 138 mmol/L (137-145)
[2019-05-26 09:56] LABS: Creatinine Urine Random 156.2 mg/dL; Protein (Total) Urine Random 102 mg/dL (0-12); Protein Creatinine Ratio Urine 0.65 GRAM/24H
== END ==
PROVIDERS: PCP Family Medicine; Visit Provider Student in an Organized Health Care Education/Training Program
DX: R80.9 Proteinuria, unspecified (principal); D64.9 Anemia, unspecified; N05.9 Unspecified nephritic syndrome with unspecified morphologic changes
CPT/HCPCS: 36415; 80048; 82570; 84156; 85014; 85018

== ENCOUNTER → 2019-07-11 08:20 | Outpatient (CLI) | payer MEDICARE, OTHER, SELFPAY ==
[2019-07-11 09:51] LABS: Prostate Specific Antigen 3.35 ng/mL (0.10-4.00)
== END ==
PROVIDERS: PCP Family Medicine; Visit Provider Urology
DX: R97.20 Elevated prostate specific antigen [PSA] (principal)
CPT/HCPCS: 36415; 84153

== ENCOUNTER → 2019-12-06 07:49 | Outpatient (CLI) | payer MEDICARE, OTHER, SELFPAY ==
[2019-12-06 09:16] LABS: Hemoglobin A1C% w Est Avg Glu 6.4 % (4.0-6.0)
[2019-12-06 09:54] LABS: Alanine Aminotransferase 27 IU/L (<50); Albumin 4.4 g/dL (3.5-5.0); Albumin Globulin Ratio 1.4 (1.0-2.8); Alkaline Phosphatase 71 U/L (38-126); Aspartate Aminotransferase 38 IU/L (17-59); BUN Creatinine Ratio 28.9 (6-22); Blood Urea Nitrogen 26 mg/dL (9-20); Calcium 9.7 mg/dL (8.4-10.2); Carbon Dioxide 25 mmol/L (22-32); Chloride 104 mmol/L (98-107); Cholesterol 135 mg/dL (140-199); Estimated Glomerular Filt Rate > 60.0 mL/min (>60); Globulin 3.1 g/dL (1.7-4.1); Glucose 103 mg/dL (80-110); HDL Cholesterol 52 mg/dL (40-60); HEMOLYSIS 42 (0-50); LDL Cholesterol Calculated 62 mg/dL (<100); Potassium 4.9 mmol/L (3.4-5.1); Sodium 138 mmol/L (137-145); Total Protein 7.5 g/dL (6.3-8.2); Triglycerides 104 mg/dL (35-150)
[2019-12-06 10:12] LABS: Free T4, Direct Thyroxine 0.63 ng/dL (0.78-2.19)
== END ==
PROVIDERS: PCP Internal Medicine; Referring Provider Internal Medicine; Visit Provider Internal Medicine
DX: E03.9 Hypothyroidism, unspecified (principal); I10 Essential (primary) hypertension; I25.10 Atherosclerotic heart disease of native coronary artery without angina pectoris; N18.2 Chronic kidney disease, stage 2 (mild); E11.9 Type 2 diabetes mellitus without complications
CPT/HCPCS: 36415; 80053; 80061; 83036; 84439; 84443

== ENCOUNTER → 2020-01-03 07:55 | Outpatient (CLI) | payer MEDICARE, OTHER, SELFPAY ==
[2020-01-03 09:25] LABS: Hematocrit 49.6 % (41-53); Hemoglobin 16.5 g/dL (13.5-17.5)
[2020-01-03 09:40] LABS: Creatinine Urine Random 174.6 mg/dL; Protein (Total) Urine Random 174 mg/dL (0-12); Protein Creatinine Ratio Urine 0.99 GRAM/24H
[2020-01-03 09:41] LABS: HEMOLYSIS < 15 (0-50); Potassium 5.3 mmol/L (3.4-5.1)
[2020-01-03 09:42] LABS: Blood Urea Nitrogen 33 mg/dL (9-20); Calcium 10.3 mg/dL (8.4-10.2); Carbon Dioxide 23 mmol/L (22-32); Chloride 104 mmol/L (98-107); Estimated Glomerular Filt Rate > 60.0 mL/min (>60); Glucose 110 mg/dL (80-110); Sodium 138 mmol/L (137-145)
[2020-01-04 07:12] LABS: Parathyroid Hormone Int 48 pg/mL (15-65)
== END ==
PROVIDERS: PCP Internal Medicine; Referring Provider Student in an Organized Health Care Education/Training Program; Visit Provider Student in an Organized Health Care Education/Training Program
DX: N05.9 Unspecified nephritic syndrome with unspecified morphologic changes (principal); D64.9 Anemia, unspecified; N25.81 Secondary hyperparathyroidism of renal origin; R80.9 Proteinuria, unspecified
CPT/HCPCS: 36415; 80048; 82570; 83970; 84156; 85014; 85018

== ENCOUNTER → 2020-01-27 08:20 | Outpatient (CLI) | payer MEDICARE, OTHER, SELFPAY ==
[2020-01-27 09:02] LABS: HEMOLYSIS < 15 (0-50); Potassium 4.3 mmol/L (3.4-5.1)
== END ==
PROVIDERS: PCP Internal Medicine; Referring Provider Student in an Organized Health Care Education/Training Program; Visit Provider Student in an Organized Health Care Education/Training Program
DX: E87.5 Hyperkalemia (principal)
CPT/HCPCS: 36415; 84132

== ENCOUNTER 2020-03-27 15:03 | Emergency (ER) | payer MEDICARE, OTHER, SELFPAY ==
[2020-03-27 15:15] VITALS: BP 172/93; PULSE 69; RESP 24; TEMP 36.3; O2SAT 100
[2020-03-27 15:56] LABS: Add Manual Diff / Slide Review NO; Basophils Absolute Auto 0 /uL (0-100); Basophils Percent Auto 0.5 % (0-2); Eosinophils Absolute Auto 500 /uL (0-450); Eosinophils Percent Auto 7.5 % (2-4); Hematocrit 42.5 % (41-53); Hemoglobin 14.2 g/dL (13.5-17.5); Lymphocytes Absolute Auto 1300 /uL (1100-4500); Lymphocytes Percent Auto 20.1 % (25-40); Mean Corpuscular HGB Conc 33.4 % (30-36); Mean Corpuscular Hemoglobin 32.4 PG (26-34); Mean Corpuscular Volume 97.1 fL (80-100); Monocytes Absolute Auto 600 /uL (0-900); Monocytes Percent Auto 8.5 % (3-14); Neutrophils Absolute Auto 4100 /uL (1500-7000); Neutrophils Percent Auto 63.4 % (50-75); Platelet Count 152 X10^3/uL (150-400); Red Blood Cell Count 4.38 X10^6/uL (4.5-5.9); Red Cell Distribution Width 13.6 % (11.6-14.8); White Blood Cell Count 6.5 X10^3/uL (4.5-11.0)
[2020-03-27 16:09] VITALS: BP 170/95; PULSE 86; RESP 118; O2SAT 99
[2020-03-27 16:09] LABS: BUN Creatinine Ratio 25.6 (6-22); Blood Urea Nitrogen 20 mg/dL (9-20); Calcium 9.3 mg/dL (8.4-10.2); Carbon Dioxide 27 mmol/L (22-32); Chloride 104 mmol/L (98-107); Estimated Glomerular Filt Rate > 60.0 mL/min (>60); Glucose 121 mg/dL (80-110); HEMOLYSIS 15 (0-50); Potassium 4.1 mmol/L (3.4-5.1); Sodium 137 mmol/L (137-145)
[2020-03-27 16:21] LABS: Troponin I 0.014 ng/mL (0.01-0.034)
--- NOTE | 2020-03-27 16:41 | DI.CT.S_ITS ---
PROCEDURE: CT HEAD/BRAIN WO CON INDICATIONS: dizzy, spinny TECHNIQUE: Noncontrast 4.5 mm thick angled axial sections acquired from the foramen magnum to the vertex, with coronal and sagittal reformats. For radiation dose reduction, the following was used: automated exposure control, adjustment of mA and/or kV according to patient size. COMPARISON: [facility], CT, CT HEAD/BRAIN WO CON, 03/13/2018, 8:03. FINDINGS: Image quality: Excellent. CSF spaces: Basal cisterns are patent. No extra-axial fluid collections. The ventricles are symmetric in size and shape. Brain: No intracranial bleeds or masses. There is cerebral volume loss for age, with resultant ventricular and sulcal prominence. There are periventricular and deep white matter chronic small vessel ischemic changes. There is intracranial internal carotid artery atherosclerosis. Skull and face: Calvarium and visualized facial bones appear intact, without suspicious lesions. Sinuses: Frontal sinus disease is seen, with moderate to severe mucosal thickening within the ethmoid air cells. There is good opacification of the right frontal sinus. Moderate mucosal thickening is seen within the visualized right maxillary sinus and there is mild mucosal thickening within the left maxillary sinus. There is complete opacification of the right sphenoid sinus and mild mucosal thickening of the left sphenoid sinus. No abnormal fluid is seen within the mastoid air cells. IMPRESSION: No acute intracranial process is seen to explain the patient's presenting symptoms. Note is made of age-appropriate brain parenchymal volume loss and chronic small vessel ischemic changes. If it would be helpful for clinical management decision making, please consider a dedicated IAC protocol MRI (without and with contrast) for further evaluation (assuming that there is no contraindication). Paranasal sinus disease is seen, which is clearly progressed compared to the prior CT examination. Dictated by: Aldo Cisneros M.D. on 03/27/2020 at 15:56 Approved by: Aldo Cisneros M.D. on 03/27/2020 at 15:58
[2020-03-27] MEDS: SODIUM CHLORIDE 0.9% 1,000 ML 1000 ML IV (17:23)
[2020-03-27 18:09] LABS: Creatine Kinase 64 U/L (55-170)
[2020-03-27 18:17] VITALS: BP 162/92; PULSE 76; RESP 22; O2SAT 99
[2020-03-27 18:22] LABS: Troponin I 0.015 ng/mL (0.01-0.034)
[2020-03-27 18:55] VITALS: BP 144/91; BP 165/80; BP 166/81; PULSE 75; PULSE 78; PULSE 82
[2020-03-27 19:47] VITALS: BP 166/81; PULSE 73; O2SAT 99
--- NOTE | 2020-03-27 20:08 | ED_ITS ---
HPI - Dizziness <Suly CollazoGOLDIEP-BC - Last Filed: 03/27/20 20:13> General Chief Complaint: Dizziness Stated Complaint: dizzy spells x 2 days Time Seen by Provider: 03/27/20 16:30 Source: patient Mode of arrival: Ambulatory Limitations: no limitations History of Present Illness HPI Narrative: The patient is an 80-year-old male nonsmoker with history of atrial fibrillation who presents with a chief complaint of dizziness when he wakes up in the mornings. He states he feels woozy and like he is spinning, but only in the morning when he wakes up. He feels better throughout the day and in the afternoon he has inability asymptomatic. He is asymptomatic and states he feels ?fine upon arrival to the emergency department. He denies any chest pain, shortness of breath, passing out states he is eating and drinking well. He denies any falls trauma or hitting his head. He denies any weakness slurred speech etcetera. Patient states overall he feels well. Denies any cough or cold symptoms, but does complain of ?runny nose and bad allergies this time of year Related Data Home Medications Medication Instructions Recorded Confirmed dutasteride [Avodart] 0.5 mg PO QDAY #0 01/26/11 12/19/19 omega 1-dew-cqi-fish oil [Fish Oil] 1,000 mg PO Q DAY #0 08/04/11 12/19/19 metoprolol succinate 25 mg PO QDAY #0 06/30/16 12/19/19 Glucose: Test Strips #1 ea 04/08/18 12/19/19 ascorbic acid (vitamin C) [Vitamin 500 mg PO DAILY 04/26/18 12/19/19 C] aspirin 325 mg tablet 325 mg PO DAILY 05/23/19 12/19/19 losartan 25 mg tablet 25 mg PO DAILY 05/23/19 12/19/19 patiromer calcium sorbitex 8.4 8.4 gram PO DAILY 05/23/19 12/19/19 gram oral powder packet Glucosamine Sulfate 1,000 mg PO DAILY 11/14/19 12/19/19 Previous Rx's Medication Instructions Recorded Freestyle light test strips #100 each 03/31/19 tamsulosin 0.4 mg capsule 0.8 mg PO QDAY #180 cap 04/11/19 levothyroxine 125 mcg tablet 125 mcg PO DAILY #90 tab 12/19/19 atorvastatin 40 mg tablet 40 mg PO QPM #90 tab 01/12/20 metformin 500 mg tablet See Rx Instructions .ROUTE 01/31/20 .COMPLEX #180 tablet Allergies Allergy/AdvReac Type Severity Reaction Status Date / Time No Known Drug Allergies Allergy Verified 12/19/19 08:52 Review of Systems <NICOLE Colon - Last Filed: 03/27/20 20:13> Review of Systems Narrative: GENERAL: Denies chills, fatigue, malaise, fever, sweats. HEENT: Denies sinus pain, ear pain, sore throat, difficulty swallowing, dizziness. RESPIRATORY: Denies dyspnea, cough, wheezing, hemoptysis, sputum. CARDIOVASCULAR: Denies chest pain, palpitations, orthopnea, edema, GASTROINTESTINAL: Denies nausea, vomiting, abdominal pain, diarrhea, constipation, melena. : Denies dysuria, frequency, incontinence, hematuria, urinary retention. MUSCULOSKELETAL: denies weakness, joint pain, or bony pain SKIN: Denies rash, skin lesions, or other NEUROLOGIC: See HPI PSYCHIATRIC: No concerning psychosocial issues. 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 Mother No problems noted. Social History Smoking Status: Never smoker alcohol intake: never Smoking Status: Never smoker Exam <NICOLE Colon - Last Filed: 03/27/20 20:13> Narrative Exam Narrative: GENERAL: This is a well-nourished, well-developed patient, in no acute distress HEAD: Atraumatic. Normocephalic. No temporal or scalp tenderness. EYES: Pupils equal round and reactive. Extraocular motions intact. No scleral icterus. No injection or drainage. ENT: Nose without bleeding, purulent drainage or septal hematoma. Throat without erythema, tonsillar hypertrophy or exudate. Uvula midline. Airway patent. NECK: Trachea midline. No JVD or lymphadenopathy. Supple, nontender, no meningeal signs. CARDIOVASCULAR: Regular rate and irregular rhythm RESPIRATORY: Clear to auscultation. Breath sounds equal bilaterally. No wheezes, rales, or rhonchi. No cough. No increased respiratory effort. No accessory muscle use. GASTROINTESTINAL: Abdomen soft, non-tender, nondistended. No hepato-spl enomegaly, or palpable masses. No guarding. EXTREMITIES: No clubbing, cyanosis, or edema. No joint tenderness, effusion, or edema noted. BACK: Nontender without deformity or crepitance. No flank tenderness. NEURO: AOx3. Follows commands. NIH of 0. Stable gait. SKIN: No rash or erythema. Initial Vital Signs Initial Vital Signs: Vital Signs Temperature 97.4 F L 03/27/20 15:15 Pulse Rate 69 03/27/20 15:15 Respiratory Rate 03/27/20 15:15 Blood Pressure 172/93 H 03/27/20 15:15 Pulse Oximetry 100 03/27/20 15:15 <Bernadine Waters MD - Last Filed: 03/29/20 07:18> Initial Vital Signs Initial Vital Signs: Vital Signs Temperature 97.4 F L 03/27/20 15:15 Pulse Rate 69 03/27/20 15:15 Respiratory Rate 03/27/20 15:15 Blood Pressure 172/93 H 03/27/20 15:15 Pulse Oximetry 100 03/27/20 15:15 Scores <NICOLE Colon - Last Filed: 03/27/20 20:13> GCS Grace coma scale eye opening: Spontaneous Grace coma scale verbal response: Orientated Grace coma scale motor response: Obey commands Grace coma scale total score: 15 NIH Stroke Scale Level of Conciousness: Alert, keenly responsive Ask month/age: Answers both questions correctly. Open/close eyes, close hand: Performs both tasks correctly Best gaze horizontal: Normal Visual larkin: No visual loss Facial palsy: Normal symetrical movement Left arm drift: No drift for full 10 sec Right arm drift: No drift for full 10 sec Left leg drift: No drift for full 10 sec Right leg drift: No drift for full 10 sec Limb ataxia: Absent Sensory on face/arms/legs: Normal, no sensory loss Best language: No aphasia, normal Dysarthria: Normal Extinction or inattention: No abnormality Total NIH Stroke scale score: 0 Course <NICOLE Colon - Last Filed: 03/27/20 20:13> Orders Ordered: Discontinued Medications Sodium Chloride (Normal Saline 0.9%) 1,000 mls @ 150 mls/hr IV CONT REYNALDO Last Admin: 03/27/20 16:36 Dose: Not Given Documented by: RSMARIAN Sodium Chloride (Normal Saline 0.9%) 1,000 mls @ 1,000 mls/hr IV BOLUS ONE Stop: 03/27/20 17:40 Last Infusion: 03/27/20 19:39 Dose: 0 mls/hr Documented by: Admin: 03/27/20 17:23 Dose: 1,000 mls/hr Documented by: BTONER Vital Signs Vital signs: Vital Signs - 8 hr 03/27/20 15:15 03/27/20 16:09 03/27/20 18:17 Temperature 97.4 F L Pulse Rate 69 86 76 Pulse Rate [Orthostatic Lying] Pulse Rate [Orthostatic Sitting] Pulse Rate [Orthostatic Standing] Respiratory Rate 24 118 H 22 Blood Pressure 172/93 H Blood Pressure [Orthostatic Lying] Blood Pressure [Orthostatic Sitting] Blood Pressure [Orthostatic Standing] Blood Pressure [Right Arm] 170/95 H 162/92 H Pulse Oximetry 100 99 99 03/27/20 18:55 03/27/20 19:47 Temperature Pulse Rate 73 Pulse Rate [Orthostatic Lying] 75 Pulse Rate [Orthostatic Sitting] 82 Pulse Rate [Orthostatic Standing] 78 Respiratory Rate Blood Pressure 166/81 H Blood Pressure [Orthostatic Lying] 144/91 H Blood Pressure [Orthostatic Sitting] 165/80 H Blood Pressure [Orthostatic Standing] 166/81 H Blood Pressure [Right Arm] Pulse Oximetry 99 <Bernadine Waters MD - Last Filed: 03/29/20 07:18> Orders Ordered: Discontinued Medications Sodium Chloride (Normal Saline 0.9%) 1,000 mls @ 150 mls/hr IV CONT REYNALDO Last Admin: 03/27/20 16:36 Dose: Not Given Documented by: RSTONE Sodium Chloride (Normal Saline 0.9%) 1,000 mls @ 1,000 mls/hr IV BOLUS ONE Stop: 03/27/20 17:40 Last Infusion: 03/27/20 19:39 Dose: 0 mls/hr Documented by: Admin: 03/27/20 17:23 Dose: 1,000 mls/hr Documented by: BTONER Vital Signs Vital signs: Vital Signs - 8 hr 03/27/20 15:15 03/27/20 16:09 03/27/20 18:17 Temperature 97.4 F L Pulse Rate 69 86 76 Pulse Rate [Orthostatic Lying] Pulse Rate [Orthostatic Sitting] Pulse Rate [Orthostatic Standing] Respiratory Rate 24 118 H 22 Blood Pressure 172/93 H Blood Pressure [Orthostatic Lying] Blood Pressure [Orthostatic Sitting] Blood Pressure [Orthostatic Standing] Blood Pressure [Right Arm] 170/95 H 162/92 H Pulse Oximetry 100 99 99 03/27/20 18:55 03/27/20 19:47 Temperature Pulse Rate 73 Pulse Rate [Orthostatic Lying] 75 Pulse Rate [Orthostatic Sitting] 82 Pulse Rate [Orthostatic Standing] 78 Respiratory Rate Blood Pressure 166/81 H Blood Pressure [Orthostatic Lying] 144/91 H Blood Pressure [Orthostatic Sitting] 165/80 H Blood Pressure [Orthostatic Standing] 166/81 H Blood Pressure [Right Arm] Pulse Oximetry 99 MDM - Dizziness <NICOLE Colon - Last Filed: 03/27/20 20:13> Lab Data Attestation: I reviewed the patient's lab results. Result diagrams: 03/27/20 15:45 03/27/20 15:45 Labs: Lab Results 03/27/20 03/27/20 03/27/20 Range/Units 15:45 15:45 17:51 WBC 6.5 (4.5-11.0) X10^3/uL RBC 4.38 L (4.5-5.9) X10^6/uL Hgb 14.2 (13.5-17.5) g/dL Hct 42.5 (41-53) % MCV 97.1 (80-100) fL MCH 32.4 (26-34) PG MCHC 33.4 (30-36) % RDW 13.6 (11.6-14.8) % Plt Count 152 (150-400) X10^3/uL Neut % (Auto) 63.4 (50-75) % Lymph % (Auto) 20.1 L (25-40) % [place] % (Auto) 8.5 (3-14) % Eos % (Auto) 7.5 H (2-4) % Baso % (Auto) 0.5 (0-2) % Neut # (Auto) 4100 (3012-1429) /uL Lymph # (Auto) 1300 (4960-1128) /uL [place] # (Auto) 600 (0-900) /uL Eos # (Auto) 500 H (0-450) /uL Baso # (Auto) 0 (0-100) /uL Sodium 137 (137-145) mmol/L Potassium 4.1 (3.4-5.1) mmol/L Chloride 104 (98-107) mmol/L Carbon Dioxide 27 (22-32) mmol/L BUN 20 (9-20) mg/dL Creatinine 0.78 (0.66-1.25) mg/dL Estimated GFR > 60.0 (>60) mL/min BUN/Creatinine Ratio 25.6 H (6-22) Glucose 121 H (80-110) mg/dL Calcium 9.3 (8.4-10.2) mg/dL Total Creatine Kinase 64 (55-170) U/L CK-MB (CK-2) TNP CK-MB (CK-2) Rel Index TNP Troponin I 0.014 0.015 (0.01-0.034) ng/mL Imaging Data CT scan - head: Radiologist's Impression: [address] [place] [id number] Scan Report Signed Patient: Joni Montgomery LMR#: [id number] : 9Acct:[id number] Age/Sex: 80 / MDate of Service: 03/27/20 Loc: ED Accession Number: [id number] Procedure: CT head/brain wo con Ordering Provider: Suly Collazo PROCEDURE: CT HEAD/BRAIN WO CON INDICATIONS: dizzy, spinny TECHNIQUE: Noncontrast 4.5 mm thick angled axial sections acquired from the foramen magnum to the vertex, with coronal and sagittal reformats. For radiation dose reduction, the following was used: automated exposure control, adjustment of mA and/or kV according to patient size. COMPARISON: [facility], CT, CT HEAD/BRAIN WO CON, 03/13/2018, 8:03. FINDINGS: Image quality: Excellent. CSF spaces: Basal cisterns are patent. No extra-axial fluid collections. The ventricles are symmetric in size and shape. Brain: No intracranial bleeds or masses. There is cerebral volume loss for age, with resultant ventricular and sulcal prominence. There are periventricular and deep white matter chronic small vessel ischemic changes. There is intracranial internal carotid artery atherosclerosis. Skull and face: Calvarium and visualized facial bones appear intact, without suspicious lesions. Sinuses: Frontal sinus disease is seen, with moderate to severe mucosal thickening within the ethmoid air cells. There is good opacification of the right frontal sinus. Moderate mucosal thickening is seen within the visualized right maxillary sinus and there is mild mucosal thickening within the left maxillary sinus. There is complete opa cification of the right sphenoid sinus and mild mucosal thickening of the left sphenoid sinus. No abnormal fluid is seen within the mastoid air cells. IMPRESSION: No acute intracranial process is seen to explain the patient's presenting symptoms. Note is made of age-appropriate brain parenchymal volume loss and chronic small vessel ischemic changes. If it would be helpful for clinical management decision making, please consider a dedicated IAC protocol MRI (without and with contrast) for further evaluation (assuming that there is no contraindication). Paranasal sinus disease is seen, which is clearly progressed compared to the prior CT examination. Dictated by: Aldo Cisneros M.D. on 03/27/2020 at 15:56 Approved by: Aldo Cisneros M.D. on 03/27/2020 at 15:58 ECG Data Attestation: I personally reviewed and interpreted this ECG as follows: Interpretation: Atrial fibrillation. Ventricular rate 82. QRS 92. viewed by Dr Rocío SAMANIEGO Narrative Medical decision making narrative: The patient is an 80-year-old male who presents with a chief complaint of dizziness and wooziness upon waking up in the morning. He states it improves throughout the day and he is currently asymptomatic in the emergency department. His initial troponin is negative, EKG shows atrial fibrillation, repeat troponin is also negative. Head CT is no acute findings. The patient was given a L fluids and remained non orthostatic. Given that he has some sinus findings on CT, this could be contributing to his s ymptoms, it is injuring stating that his dizziness is only when he wakes up 1st thing in the morning. I wonder if it is due to fluid shift. I discussed at length a trial of Flonase as well as Neti pot or sinus rinse encouraged follow- up with primary care provider in the next few days. In the meantime discussed coming back to the emergency department for any acute concerns. Patient have no questions or concerns upon discharge and state understanding of return precautions as well as follow-up care. <Bernadine Waters MD - Last Filed: 03/29/20 07:18> Lab Data Labs: Lab Results 03/27/20 03/27/20 03/27/20 Range/Units 15:45 15:45 17:51 WBC 6.5 (4.5-11.0) X10^3/uL RBC 4.38 L (4.5-5.9) X10^6/uL Hgb 14.2 (13.5-17.5) g/dL Hct 42.5 (41-53) % MCV 97.1 (80-100) fL MCH 32.4 (26-34) PG MCHC 33.4 (30-36) % RDW 13.6 (11.6-14.8) % Plt Count 152 (150-400) X10^3/uL Neut % (Auto) 63.4 (50-75) % Lymph % (Auto) 20.1 L (25-40) % [place] % (Auto) 8.5 (3-14) % Eos % (Auto) 7.5 H (2-4) % Baso % (Auto) 0.5 (0-2) % Neut # (Auto) 4100 (4407-6642) /uL Lymph # (Auto) 1300 (9610-6557) /uL [place] # (Auto) 600 (0-900) /uL Eos # (Auto) 500 H (0-450) /uL Baso # (Auto) 0 (0-100) /uL Sodium 137 (137-145) mmol/L Potassium 4.1 (3.4-5.1) mmol/L Chloride 104 (98-107) mmol/L Carbon Dioxide 27 (22-32) mmol/L BUN 20 (9-20) mg/dL Creatinine 0.78 (0.66-1.25) mg/dL Estimated GFR > 60.0 (>60) mL/min BUN/Creatinine Ratio 25.6 H (6-22) Glucose 121 H (80-110) mg/dL Calcium 9.3 (8.4-10.2) mg/dL Total Creatine Kinase 64 (55-170) U/L CK-MB (CK-2) TNP CK-MB (CK-2) Rel Index TNP Troponin I 0.014 0.015 (0.01-0.034) ng/mL Discharge Plan Departure Patient Disposition: Home Clinical Impression: Dizziness Discharge Date/Time: 03/27/20 19:48 Instructions: DI for Vertigo, DI for Dizziness-Nonvertigo Activity Restrictions/Additional Instructions: Thank you for trusting us with your care today. As I discussed your EKG and lab work came back very well. Given that knee the CT of her head showed some sinus disease, I recommended trial of Flonase as well as NeilMed sinus rinse or Neti pot Please follow-up with primary care provider in the next few days Please come back to emergency department for any acute concerns including concern of heart attack stroke etcetera Prescriptions: No Action (DME) Glucose: Test Strips 0 .Route .MEDSUPPLY Qty: 1 RF: 0 dutasteride [Avodart] 0.5 MG capsule 0.5 mg PO QDAY Qty: 0 RF: 0 omega 1-xiu-aba-fish oil [Fish Oil] 1,000 mg (120 mg-180 mg) Capsule 1,000 mg PO Q DAY Qty: 0 RF: 0 metoprolol succinate 50 MG tablet extended release 24 hr 25 mg PO QDAY Qty: 0 RF: 0 (DME) Freestyle light test strips Qty: 100 RF: 4 tamsulosin [Flomax] 0.4 mg capsule 0.8 mg PO QDAY Qty: 180 RF: 3 atorvastatin 40 mg tablet 40 mg PO QPM Qty: 90 RF: 1 metformin 500 mg tablet See Rx Instructions .ROUTE .COMPLEX Qty: 180 RF: 0 Veltassa 8.4 gram powder in packet 8.4 gram PO DAILY RF: 0 losartan 25 mg tablet 25 mg PO DAILY RF: 0 aspirin 325 mg tablet 325 mg PO DAILY RF: 0 levothyroxine [Synthroid] 125 mcg tablet 125 mcg PO DAILY Qty: 90 RF: 3 Glucosamine Sulfate 1,000 mg PO DAILY RF: 0 ascorbic acid (vitamin C) [Vitamin C] 500 mg Tablet 500 mg PO DAILY RF: 0 Referrals: Jomar Rodney MD [Primary Care Provider] - <Bernadine Waters MD - Last Filed: 03/29/20 07:18> Cosign ED Attending Cosignature Attestation: I was immediately available in the department for consultation throughout this patient's visit. I agree with documentation as above. Bernadine Waters MD
== END 2020-03-27 19:48 | disposition home or self-care (01) ==
PROVIDERS: Emergency Medicine; Emergency Provider Nurse Practitioner Family; PCP Internal Medicine
DX: R42 Dizziness and giddiness (principal); I48.91 Unspecified atrial fibrillation
CPT/HCPCS: 36415; 70450; 80048; 82550; 84484; 85025; 93005; 96360; 96361; 99284

== ENCOUNTER → 2020-04-18 07:24 | Outpatient (CLI) | payer MEDICARE, OTHER, SELFPAY ==
[2020-04-18 08:29] LABS: Hematocrit 45.2 % (41-53); Hemoglobin 15.3 g/dL (13.5-17.5)
[2020-04-18 09:24] LABS: BUN Creatinine Ratio 25.8 (6-22); Blood Urea Nitrogen 23 mg/dL (9-20); Carbon Dioxide 22 mmol/L (22-32); Chloride 107 mmol/L (98-107); Estimated Glomerular Filt Rate > 60.0 mL/min (>60); Glucose 112 mg/dL (80-110); HEMOLYSIS < 15 (0-50); Potassium 4.9 mmol/L (3.4-5.1); Sodium 138 mmol/L (137-145)
[2020-04-18 09:37] LABS: Free T4, Direct Thyroxine 1.14 ng/dL (0.78-2.19)
[2020-04-18 09:50] LABS: Thyroid Stimulating Hormone 0.768 uIU/mL (0.47-4.68)
[2020-04-18 10:27] LABS: Creatinine Urine Random 282.4 mg/dL
[2020-04-18 10:34] LABS: Protein (Total) Urine Random 337 mg/dL (0-12); Protein Creatinine Ratio Urine 1.19 GRAM/24H
[2020-04-19 07:36] LABS: Parathyroid Hormone Int 31 pg/mL (15-65)
== END ==
PROVIDERS: PCP Internal Medicine; Referring Provider Internal Medicine; Visit Provider Internal Medicine
DX: D64.9 Anemia, unspecified (principal); N25.81 Secondary hyperparathyroidism of renal origin; R80.9 Proteinuria, unspecified; N05.9 Unspecified nephritic syndrome with unspecified morphologic changes; E03.9 Hypothyroidism, unspecified
CPT/HCPCS: 36415; 80048; 82570; 83970; 84156; 84439; 84443; 85014; 85018

== ENCOUNTER → 2020-05-29 08:02 | Outpatient (CLI) | payer MEDICARE, OTHER, SELFPAY ==
[2020-05-29 08:39] LABS: Creatinine Urine Random 74.1 mg/dL; Protein (Total) Urine Random 41 mg/dL (0-12); Protein Creatinine Ratio Urine 0.55 GRAM/24H
[2020-05-29 10:16] LABS: BUN Creatinine Ratio 33.7 (6-22); Blood Urea Nitrogen 35 mg/dL (9-20); Calcium 9.9 mg/dL (8.4-10.2); Carbon Dioxide 24 mmol/L (22-32); Chloride 104 mmol/L (98-107); Estimated Glomerular Filt Rate > 60.0 mL/min (>60); Glucose 107 mg/dL (80-110); HEMOLYSIS < 15 (0-50); Potassium 5.2 mmol/L (3.4-5.1); Sodium 137 mmol/L (137-145)
== END ==
PROVIDERS: PCP Internal Medicine; Referring Provider Student in an Organized Health Care Education/Training Program; Visit Provider Student in an Organized Health Care Education/Training Program
DX: N05.9 Unspecified nephritic syndrome with unspecified morphologic changes (principal); R80.9 Proteinuria, unspecified
CPT/HCPCS: 36415; 80048; 82570; 84156

== ENCOUNTER → 2020-06-13 07:58 | Outpatient (CLI) | payer MEDICARE, OTHER, SELFPAY ==
[2020-06-13 08:45] LABS: Hemoglobin A1C% w Est Avg Glu 6.4 % (4.0-6.0)
[2020-06-13 08:53] LABS: Blood Urea Nitrogen 30 mg/dL (9-20); Calcium 9.5 mg/dL (8.4-10.2); Carbon Dioxide 27 mmol/L (22-32); Chloride 107 mmol/L (98-107); Estimated Glomerular Filt Rate > 60.0 mL/min (>60); Glucose 116 mg/dL (80-110); HEMOLYSIS < 15 (0-50); Potassium 4.9 mmol/L (3.4-5.1); Sodium 140 mmol/L (137-145)
[2020-06-13 09:11] LABS: Free T4, Direct Thyroxine 1.35 ng/dL (0.78-2.19)
[2020-06-13 09:25] LABS: Thyroid Stimulating Hormone 0.704 uIU/mL (0.47-4.68)
== END ==
PROVIDERS: PCP Internal Medicine; Referring Provider Internal Medicine; Visit Provider Student in an Organized Health Care Education/Training Program
DX: E87.5 Hyperkalemia (principal); E03.9 Hypothyroidism, unspecified; E11.9 Type 2 diabetes mellitus without complications; E78.2 Mixed hyperlipidemia; N18.2 Chronic kidney disease, stage 2 (mild)
CPT/HCPCS: 36415; 80048; 83036; 84439; 84443

== ENCOUNTER → 2020-07-29 07:59 | Outpatient (CLI) | payer MEDICARE, OTHER, SELFPAY ==
[2020-07-29 10:24] LABS: Prostate Specific Antigen 3.83 ng/mL (0.10-4.00)
== END ==
PROVIDERS: PCP Internal Medicine; Referring Provider Urology; Visit Provider Urology
DX: R97.20 Elevated prostate specific antigen [PSA] (principal)
CPT/HCPCS: 36415; 84153

== ENCOUNTER → 2020-07-31 07:41 | Outpatient (CLI) | payer MEDICARE, OTHER, SELFPAY ==
[2020-07-31 08:16] LABS: Cholesterol 127 mg/dL (140-199); HDL Cholesterol 45 mg/dL (40-60); LDL Cholesterol Calculated 57 mg/dL (<100); Triglycerides 124 mg/dL (35-150)
== END ==
PROVIDERS: PCP Internal Medicine; Referring Provider Internal Medicine Cardiovascular Disease; Visit Provider Internal Medicine Cardiovascular Disease
DX: I25.10 Atherosclerotic heart disease of native coronary artery without angina pectoris (principal)
CPT/HCPCS: 36415; 80061

== ENCOUNTER → 2020-08-09 06:53 | Outpatient (CLI) | payer MEDICARE, OTHER, SELFPAY ==
--- NOTE | 2020-08-09 | DI.ECHO.S_ITS ---
[facility]---------+ [facility] +---------+ : : [address] : : : : [id number] : : : : Phone: [phone] Echocardiogram Report + + :Name: JOAQUIN ESPINO Study Date: 08/09/2020 Height: 67 in : :[facility] Weight: 188 lb : : Gender: Male BSA: 2.0 m2 : :: 1940 Age: 80 yrs BP: 136/95 mmHg: :Reason For Study: Chronic atrial fibrillation : :Ordering Physician: Chai Leonard : :[place] Performed By: Viky Albert : :Referring: CHAI SAWYER : + + Interpretation Summary The left ventricle is normal in size. Left ventricular systolic function is mildly reduced. The ejection fraction is estimated to be 40-45%. Left ventricular function has mildly worsened compared to the previous exam. There is hypokinesis to akinesis along the proximal inferior/inferolateral and mid inferolateral segments. LV wall motion abnormalities are new. The right ventricle is normal size. Right ventricular systolic function is at the lower limits of normal. The right ventricular systolic pressure is estimated to be at least 40 mmHg based on an estimated right atrial pressure of 3 mm Hg. The left atrium is moderately dilated. The right atrium is mildly dilated. There is mild mitral regurgitation. There is no other significant valvular heart disease. The aortic root is normal size. Procedure: A two-dimensional transthoracic echocardiogram with color flow and Doppler was performed. The study quality was technically adequate. Comparison is made with the echocardiogram of 04/22/2016. The patient was in atrial fibrillation with heart rates between 75-101 bpm during the exam. Left Ventricle: The left ventricle is normal in size. Left ventricular wall thickness is mildly increased. Left ventricular systolic function is mildly reduced. The ejection fraction is estimated to be 40-45%. Left ventricular function has mildly worsened compared to the previous exam. There is hypokinesis to akinesis along the proximal inferior/inferolateral and mid inferolateral segments. Diastolic function could not be accurately assessed due to atrial fibrillation. Right Ventricle: The right ventricle is normal size. Right ventricular systolic function is at the lower limits of normal. Atria: The left atrium is moderately dilated. The right atrium is mildly dilated. There is no Doppler evidence for an interatrial shunt. Mitral Valve: The mitral valve is normal in structure and function. There is mild mitral regurgitation. Aortic Valve: The aortic valve is trileaflet. The aortic valve opens well. No aortic regurgitation is present. Tricuspid Valve: The tricuspid valve is normal in structure and function. There is mild tricuspid regurgitation. The right ventricular systolic pressure is estimated to be at least 40 mmHg based on an estimated right atrial pressure of 3 mm Hg. Pulmonic Valve: The pulmonic valve leaflets are thin and pliable; valve motion is normal. There is a trace or physiologic amount of pulmonic regurgitation. There is no other significant valvular heart disease. Great Vessels: The aortic root is normal size. The ascending aorta is normal in size. The pulmonary artery is normal size. The IVC is of normal diameter and collapses greater than 50% with a sniff. This suggests a low right atrial pressure of 3 mm Hg. Pericardium/ Pleura There is no pericardial effusion. MMode/2D Measurements & Calculations LVIDd: 5.3 cm LVOT diam: 2.1 cm LVIDs: 4.2 cm Ao root diam: 3.6 cm FS: 20.5 % asc Aorta Diam: 3.5 cm IVSd: 1.2 cm Ao Arch Diam (Prox Trans): 3.1 cm LVPWd: 0.80 cm LV arriaza. diameter/BSA (cm/m^2): 2.7 LV sys. diameter/BSA (cm/m^2): 2.1 LA A2 area: 23.2 cm2 RA long axis: 7.3 cm LA A4 area: 26.7 cm2 RA area: 23.9 cm2 LA length (vol): 6.8 cm RA vol: 66.3 ml LA vol: 77.6 ml RA : 33.7 ml/m2 LA vol index: 39.4 ml/m2 IVC diam: 2.0 cm RVD1 (basal): 3.9 cm TAPSE: 1.4 cm Doppler Measurements & Calculations Ao V2 max: 118.2 cm/sec LVOT Max Alf: 56.7 cm/sec Ao V2 mean: 85.8 cm/sec LV V1 max P.3 mmHg Ao max P.6 mmHg LV V1 VTI: 11.6 cm Ao mean P.3 mmHg LIZ(I,D): 1.9 cm2 Ao V2 VTI: 20.7 cm LIZ(V,D): 1.7 cm2 sev ratio: 0.56 LIZ indexed to BSA (cm^2/m^2): 0.98 MV E max alf: 81.5 cm/sec TR max alf: 301.9 cm/sec Med Peak E' Alf: 5.3 cm/sec TR max P.5 mmHg E/E' med: 15.3 PA V2 max: 82.3 cm/sec Lat Peak E' Alf: 7.2 cm/sec PA V2 mean: 53.2 cm/sec E/E' lat: 11.4 PA mean P.3 mmHg E/e' average: 13.3 MV P1/2t: 45.2 msec MV P1/2t max alf: 91.3 cm/sec SV(LVOT): 40.1 ml MVA(P1/2t): 4.9 cm2 Reading Physician:12:21 PM
== END ==
PROVIDERS: PCP Internal Medicine; Referring Provider Internal Medicine; Visit Provider Internal Medicine Cardiovascular Disease
DX: I08.1 Rheumatic disorders of both mitral and tricuspid valves (principal); I48.20 Chronic atrial fibrillation, unspecified
CPT/HCPCS: 93306

== ENCOUNTER → 2020-08-21 11:27 | Outpatient (CLI) | payer MEDICARE, OTHER, SELFPAY ==
[2020-08-21 13:09] LABS: COVID19 -Nasal RAPID Negative (Negative)
== END ==
PROVIDERS: PCP Internal Medicine; Visit Provider Physician Assistant
DX: Z11.59 Encounter for screening for other viral diseases (principal)
CPT/HCPCS: 87635

== ENCOUNTER → 2020-08-22 09:16 | Outpatient (CLI) | payer MEDICARE, OTHER, SELFPAY ==
--- NOTE | 2020-08-22 18:54 | DI.NM.S_ITS ---
DATE OF SERVICE: 08/22/2020 PROCEDURE PERFORMED: Exercise treadmill stress and rest myocardial perfusion imaging with gating to assess ejection fraction and regional wall motion performed as a one-day study. ORDERING PROVIDER: Dr. Satinder Sawyer. INDICATIONS: The patient is an 80-year-old male with atrial fibrillation and history of coronary artery bypass grafting. EXERCISE TREADMILL TESTING: The patient was able to exercise for a total of 5 minutes 6 seconds on a standard Rah protocol, suggesting good exercise capacity with an ALFREDO of -5%. He had an accelerated heart rate response to exercise with a resting heart rate of 85 BPM that increased to 122 BPM after 1 minute of exercise and increased to 135 BPM after 3 minutes of exercise. There was considerable motion artifact, particularly at a high workloads, but the peak heart rate is likely around 150 to 170 BPM (115-125% of his predicted maximum). He had a normal blood pressure response to exercise and had no chest discomfort. His resting ECG shows atrial fibrillation with nonspecific ST-segment abnormalities in the inferolateral leads. With exercise, there is considerable motion artifact that limits the interpretation, but the 30-second post-exercise tracing shows only mild accentuation of the baseline ST- segment abnormalities. There were no other arrhythmias beyond his chronic atrial fibrillation. At 4 minutes 6 seconds of exercise, at a heart rate of around 146 BPM, 25.6 millicuries of technetium-99m Myoview was injected and the patient was imaged 20 minutes later using a gated SPECT acquisition protocol. Earlier in the day, while at rest, he was injected with 12.4 millicuries of technetium-99m Myoview and was imaged 60 minutes later, again using a gated SPECT acquisition protocol. FINDINGS: 1. Raw data: There is fair myocardial tracer uptake. Lung/heart ratio was normal at 0.38 with a normal TID ratio of 1.01. 2. Quantitated gated SPECT: Post-stress ejection fraction is estimated around 41% with moderate global hypokinesis without any obvious focality. The resting ejection fraction is estimated at 40% with a similar contraction pattern with a resting end-diastolic volume of 86 mL. Ejection fraction estimations may be compromised by his atrial fibrillation and clinical correlation is recommended. 3. Myocardial perfusion imaging: Post-stress supine images show a moderate perfusion defect in the proximal to mid inferolateral wall, sparing the inferior wall but extends slightly into the distal inferior wall. This defect persists on the prone images, suggesting it reflects a true perfusion defect. In addition, there is a subtle defect in the distal anterior wall that resolves on prone imaging, suggestive of a probable attenuation artifact. The resting images show a similar perfusion pattern, although with mild improvement in the inferolateral perfusion defect, particularly at the periphery of the defect. The distal anterior defect resolves on the resting images, but likewise resolved on the prone images. IMPRESSION: 1. Abnormal myocardial perfusion study. 2. 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 The degree of ischemia is likely modest. 3. Probable moderately reduced left ventricular systolic function in a global fashion although the patient's atrial fibrillation may make estimation of the ejection fraction less accurate. 4. Good exercise capacity without angina and only mild accentuation of baseline ST-segment abnormalities. He had a rapid heart rate response to exercise due to his atrial fibrillation. Joni Montgomery - PEPE/rolando/willie doc#: [id number]/job#: [id number] dd: 08/22/2020 16:56:00 dt: 08/22/2020 18:34:00 DICTATING MD/COPIES TO: Nas Loza MD; Satinder Sawyer Jr MD COPIES MNE: JENNYFER
== END ==
PROVIDERS: PCP Internal Medicine; Referring Provider Internal Medicine Cardiovascular Disease; Visit Provider Internal Medicine Cardiovascular Disease
DX: I48.91 Unspecified atrial fibrillation (principal); Z95.1 Presence of aortocoronary bypass graft; I25.10 Atherosclerotic heart disease of native coronary artery without angina pectoris
CPT/HCPCS: 78452; 93017; A9502

== ENCOUNTER → 2020-09-28 08:33 | Outpatient (CLI) | payer MEDICARE, OTHER, SELFPAY ==
[2020-09-28 09:18] LABS: Hemoglobin 14.7 g/dL (13.5-17.5)
[2020-09-28 10:00] LABS: BUN Creatinine Ratio 27.3 (6-22); Blood Urea Nitrogen 24 mg/dL (9-20); Calcium 9.5 mg/dL (8.4-10.2); Carbon Dioxide 28 mmol/L (22-32); Chloride 105 mmol/L (98-107); Estimated Glomerular Filt Rate > 60.0 mL/min (>60); Glucose 131 mg/dL (80-110); HEMOLYSIS < 15 (0-50); Sodium 137 mmol/L (137-145)
[2020-09-28 10:01] LABS: Creatinine Urine Random 96.9 mg/dL; Protein (Total) Urine Random 109 mg/dL (0-12); Protein Creatinine Ratio Urine 1.12 GRAM/24H
[2020-09-29 05:07] LABS: Parathyroid Hormone Int 51 pg/mL (15-65)
== END ==
PROVIDERS: PCP Internal Medicine; Referring Provider Student in an Organized Health Care Education/Training Program; Visit Provider Student in an Organized Health Care Education/Training Program
DX: N05.9 Unspecified nephritic syndrome with unspecified morphologic changes (principal); D64.9 Anemia, unspecified; N25.81 Secondary hyperparathyroidism of renal origin; R80.9 Proteinuria, unspecified
CPT/HCPCS: 36415; 80048; 82570; 83970; 84156; 85014; 85018

== ENCOUNTER → 2020-12-27 09:00 | Outpatient (CLI) | payer MEDICARE, OTHER, SELFPAY ==
[2020-12-27 10:30] LABS: Hemoglobin A1C% w Est Avg Glu 6.3 % (4.0-6.0)
[2020-12-27 10:37] LABS: Alanine Aminotransferase 18 IU/L (<50); Albumin 4.2 g/dL (3.5-5.0); Albumin Globulin Ratio 1.4 (1.0-2.8); Alkaline Phosphatase 75 U/L (38-126); Aspartate Aminotransferase 27 IU/L (17-59); BUN Creatinine Ratio 27.8 (6-22); Bilirubin Total 0.6 mg/dL (0.2-1.3); Blood Urea Nitrogen 22 mg/dL (9-20); Calcium 9.8 mg/dL (8.4-10.2); Carbon Dioxide 28 mmol/L (22-32); Chloride 104 mmol/L (98-107); Estimated Glomerular Filt Rate > 60.0 mL/min (>60); Globulin 3.1 g/dL (1.7-4.1); Glucose 114 mg/dL (80-110); HEMOLYSIS < 15 (0-50); Potassium 4.5 mmol/L (3.4-5.1); Sodium 139 mmol/L (137-145); Total Protein 7.3 g/dL (6.3-8.2)
== END ==
PROVIDERS: PCP Internal Medicine; Referring Provider Internal Medicine; Visit Provider Internal Medicine
DX: E11.9 Type 2 diabetes mellitus without complications (principal); N18.2 Chronic kidney disease, stage 2 (mild)
CPT/HCPCS: 36415; 80053; 83036

== ENCOUNTER → 2021-01-27 07:42 | Outpatient (CLI) | payer MEDICARE, OTHER, SELFPAY ==
[2021-01-27 09:04] LABS: Hematocrit 45.6 % (41-53); Hemoglobin 15.1 g/dL (13.5-17.5)
[2021-01-27 09:07] LABS: BUN Creatinine Ratio 30.6 (6-22); Blood Urea Nitrogen 26 mg/dL (9-20); Carbon Dioxide 24 mmol/L (22-32); Chloride 108 mmol/L (98-107); Estimated Glomerular Filt Rate > 60.0 mL/min (>60); Glucose 124 mg/dL (80-110); HEMOLYSIS < 15 (0-50); Potassium 4.7 mmol/L (3.4-5.1); Sodium 139 mmol/L (137-145)
[2021-01-27 09:21] LABS: Creatinine Urine Random 142.3 mg/dL; Protein (Total) Urine Random 96 mg/dL (0-12); Protein Creatinine Ratio Urine 0.67 GRAM/24H
== END ==
PROVIDERS: PCP Internal Medicine; Referring Provider Student in an Organized Health Care Education/Training Program; Visit Provider Student in an Organized Health Care Education/Training Program
DX: N05.9 Unspecified nephritic syndrome with unspecified morphologic changes (principal); D64.9 Anemia, unspecified; R80.9 Proteinuria, unspecified
CPT/HCPCS: 36415; 80048; 82570; 84156; 85014; 85018

== ENCOUNTER → 2021-06-20 06:47 | Outpatient (CLI) | payer MEDICARE, OTHER, SELFPAY ==
[2021-06-20 07:56] LABS: Hemoglobin A1C% w Est Avg Glu 6.1 % (4.0-6.0)
[2021-06-20 08:21] LABS: Blood Urea Nitrogen 25 mg/dL (9-20); Calcium 9.7 mg/dL (8.4-10.2); Carbon Dioxide 27 mmol/L (22-32); Chloride 108 mmol/L (98-107); Estimated Glomerular Filt Rate > 60.0 mL/min (>60); Glucose 105 mg/dL (80-110); HEMOLYSIS < 15 (0-50); Potassium 4.8 mmol/L (3.4-5.1); Sodium 142 mmol/L (137-145)
[2021-06-20 09:48] LABS: Free T4, Direct Thyroxine 0.96 ng/dL (0.78-2.19)
[2021-06-20 10:02] LABS: Thyroid Stimulating Hormone 2.63 uIU/mL (0.47-4.68)
== END ==
PROVIDERS: PCP Internal Medicine; Referring Provider Internal Medicine; Visit Provider Internal Medicine
DX: E11.9 Type 2 diabetes mellitus without complications (principal); N18.2 Chronic kidney disease, stage 2 (mild); I10 Essential (primary) hypertension; E03.9 Hypothyroidism, unspecified
CPT/HCPCS: 36415; 80048; 83036; 84439; 84443

== ENCOUNTER → 2021-09-17 06:53 | Outpatient (CLI) | payer MEDICARE, OTHER, SELFPAY ==
[2021-09-17 08:12] LABS: Hematocrit 44.1 % (41-53); Hemoglobin 14.7 g/dL (13.5-17.5)
[2021-09-17 08:57] LABS: BUN Creatinine Ratio 23.7 (6-22); Blood Urea Nitrogen 23 mg/dL (9-20); Calcium 10.2 mg/dL (8.4-10.2); Carbon Dioxide 29 mmol/L (22-32); Chloride 108 mmol/L (98-107); Estimated Glomerular Filt Rate > 60.0 mL/min (>60); Glucose 116 mg/dL (80-110); HEMOLYSIS < 15 (0-50); Potassium 5.2 mmol/L (3.4-5.1); Sodium 142 mmol/L (137-145)
[2021-09-17 11:12] LABS: Creatinine Urine Random 115.7 mg/dL
[2021-09-17 11:18] LABS: Protein (Total) Urine Random 238 mg/dL (0-12); Protein Creatinine Ratio Urine 2.05 GRAM/24H
== END ==
PROVIDERS: PCP Internal Medicine; Referring Provider Student in an Organized Health Care Education/Training Program; Visit Provider Student in an Organized Health Care Education/Training Program
DX: N05.9 Unspecified nephritic syndrome with unspecified morphologic changes (principal); R80.9 Proteinuria, unspecified; D64.9 Anemia, unspecified; E11.9 Type 2 diabetes mellitus without complications; I10 Essential (primary) hypertension; E78.2 Mixed hyperlipidemia
CPT/HCPCS: 36415; 80048; 82570; 84156; 85014; 85018

== ENCOUNTER → 2021-09-23 10:07 | Outpatient (CLI) | payer MEDICARE, OTHER, SELFPAY ==
[2021-09-23 11:25] LABS: HEMOLYSIS < 15 (0-50); Potassium 5.1 mmol/L (3.4-5.1)
== END ==
PROVIDERS: PCP Internal Medicine; Referring Provider Student in an Organized Health Care Education/Training Program; Visit Provider Student in an Organized Health Care Education/Training Program
DX: N20.9 Urinary calculus, unspecified (principal); T86.10 Unspecified complication of kidney transplant; E83.30 Disorder of phosphorus metabolism, unspecified; E83.40 Disorders of magnesium metabolism, unspecified
CPT/HCPCS: 36415; 84132

== ENCOUNTER → 2021-10-24 11:05 | Outpatient (CLI) | payer MEDICARE, OTHER, SELFPAY ==
[2021-10-24 11:48] LABS: COVID19 -Nasal RAPID Negative (Negative)
== END ==
PROVIDERS: PCP Internal Medicine; Visit Provider Physician Assistant
DX: Z20.822 Contact with and (suspected) exposure to COVID-19 (principal); R50.9 Fever, unspecified
CPT/HCPCS: 87635

== ENCOUNTER → 2021-12-16 06:47 | Outpatient (CLI) | payer MEDICARE, OTHER, SELFPAY ==
[2021-12-16 09:07] LABS: Hemoglobin A1C% w Est Avg Glu 6.4 % (4.0-6.0)
[2021-12-16 09:10] LABS: Alanine Aminotransferase 22 IU/L (<50); Albumin 4.1 g/dL (3.5-5.0); Albumin Globulin Ratio 1.4 (1.0-2.8); Alkaline Phosphatase 72 U/L (38-126); Aspartate Aminotransferase 32 IU/L (17-59); BUN Creatinine Ratio 26.4 (6-22); Bilirubin Total 0.9 mg/dL (0.2-1.3); Blood Urea Nitrogen 24 mg/dL (9-20); Carbon Dioxide 24 mmol/L (22-32); Chloride 106 mmol/L (98-107); Cholesterol 151 mg/dL (140-199); Estimated Glomerular Filt Rate > 60.0 mL/min (>60); Globulin 2.9 g/dL (1.7-4.1); Glucose 102 mg/dL (80-110); HDL Cholesterol 49 mg/dL (40-60); HEMOLYSIS < 15 (0-50); LDL Cholesterol Calculated 67 mg/dL (<100); Potassium 4.9 mmol/L (3.4-5.1); Sodium 139 mmol/L (137-145); Triglycerides 175 mg/dL (35-150)
[2021-12-16 09:31] LABS: Free T4, Direct Thyroxine 1.02 ng/dL (0.78-2.19)
[2021-12-16 09:45] LABS: Thyroid Stimulating Hormone 1.98 uIU/mL (0.47-4.68)
== END ==
PROVIDERS: PCP Internal Medicine; Referring Provider Internal Medicine; Visit Provider Internal Medicine
DX: E11.9 Type 2 diabetes mellitus without complications (principal); E78.2 Mixed hyperlipidemia; E03.9 Hypothyroidism, unspecified; I10 Essential (primary) hypertension
CPT/HCPCS: 36415; 80053; 80061; 83036; 84439; 84443

== ENCOUNTER → 2021-12-23 12:35 | Outpatient (CLI) | payer MEDICARE, OTHER, SELFPAY ==
--- NOTE | 2021-12-23 12:37 | DI.RAD.S_ITS ---
PROCEDURE: FL BARIUM SWALLOW W AIR COMPARISON: None. INDICATIONS: dysphagia FINDINGS: Esophagus: Patient was able to swallow barium without difficulty. Esophageal bar was noted. Tertiary contraction waves noted in the mid and distal esophagus compatible with moderate esophageal dysmotility. Gastroesophageal reflux was identified which occurred without provocative maneuvers. Small hiatal hernia is noted. Prominent B ring (Schatzki's ring) is noted. Limited visualization of the proximal stomach was within normal limits. 13 millimeter calibrated barium tablet rapidly passed through the esophagus into the stomach. IMPRESSION: 1. Esophageal bar. 2. Moderate esophageal dysmotility. 3. Gastroesophageal reflux. 4. Prominent Schatzki's ring. Recommend gastroenterology consultation for endoscopy. 5. Small hiatal hernia. Dictated by: Anahy Bose MD, PhD on 12/23/2021 at 16:08 Approved by: Anahy Bose MD, PhD on 12/23/2021 at 16:11
== END ==
PROVIDERS: PCP Internal Medicine; Referring Provider Internal Medicine; Visit Provider Internal Medicine
DX: R13.10 Dysphagia, unspecified (principal); K22.4 Dyskinesia of esophagus; K21.9 Gastro-esophageal reflux disease without esophagitis; K22.2 Esophageal obstruction; K44.9 Diaphragmatic hernia without obstruction or gangrene
CPT/HCPCS: 74221

== ENCOUNTER → 2022-01-08 06:59 | Outpatient (CLI) | payer MEDICARE, OTHER, SELFPAY ==
[2022-01-08 08:05] LABS: Hematocrit 45.6 % (41-53); Hemoglobin 15.3 g/dL (13.5-17.5); Mean Corpuscular HGB Conc 33.6 % (30-36); Mean Corpuscular Hemoglobin 31.7 PG (26-34); Mean Corpuscular Volume 94.4 fL (80-100); Platelet Count 129 X10^3/uL (150-400); Red Blood Cell Count 4.84 X10^6/uL (4.5-5.9); Red Cell Distribution Width 14.1 % (11.6-14.8); White Blood Cell Count 7.2 X10^3/uL (4.5-11.0)
[2022-01-08 09:02] LABS: BUN Creatinine Ratio 29.8 (6-22); Blood Urea Nitrogen 25 mg/dL (9-20); Calcium 9.3 mg/dL (8.4-10.2); Carbon Dioxide 27 mmol/L (22-32); Chloride 104 mmol/L (98-107); Estimated Glomerular Filt Rate > 60.0 mL/min (>60); Glucose 103 mg/dL (80-110); HEMOLYSIS < 15 (0-50); Potassium 4.8 mmol/L (3.4-5.1); Sodium 138 mmol/L (137-145)
[2022-01-08 09:32] LABS: Creatinine Urine Random 98.8 mg/dL
[2022-01-08 09:40] LABS: Protein (Total) Urine Random 251 mg/dL (0-12); Protein Creatinine Ratio Urine 2.54 GRAM/24H
[2022-01-09 10:15] LABS: Parathyroid Hormone Int 41 pg/mL (15-65)
== END ==
PROVIDERS: PCP Internal Medicine; Referring Provider Student in an Organized Health Care Education/Training Program; Visit Provider Student in an Organized Health Care Education/Training Program
DX: D64.9 Anemia, unspecified (principal); N05.9 Unspecified nephritic syndrome with unspecified morphologic changes; R80.9 Proteinuria, unspecified; N25.81 Secondary hyperparathyroidism of renal origin
CPT/HCPCS: 36415; 80048; 82570; 83970; 84156; 85027

== ENCOUNTER → 2022-02-04 06:41 | Outpatient (CLI) | payer MEDICARE, OTHER, SELFPAY ==
[2022-02-04 08:13] LABS: Blood Urea Nitrogen 24 mg/dL (9-20); Calcium 9.1 mg/dL (8.4-10.2); Carbon Dioxide 26 mmol/L (22-32); Chloride 108 mmol/L (98-107); Estimated Glomerular Filt Rate > 60 mL/min (>60); Glucose 112 mg/dL (80-110); HEMOLYSIS < 15 (0-50); Potassium 4.4 mmol/L (3.4-5.1); Sodium 142 mmol/L (137-145)
[2022-02-04 10:04] LABS: Creatinine Urine Random 85.9 mg/dL; Protein (Total) Urine Random 170 mg/dL (0-12); Protein Creatinine Ratio Urine 1.97 GRAM/24H
[2022-02-04 10:37] LABS: Appearance Urine UA CLEAR; Bilirubin Urine UA NEGATIVE (NEGATIVE); Color Urine UA YELLOW; Glucose Urine UA NEGATIVE (Negative); Ketones Urine UA NEGATIVE (NEGATIVE); Leukocyte Esterase Urine UA NEGATIVE (NEGATIVE); Nitrite Urine UA NEGATIVE (Negative); Occult Blood Urine UA 1+ (Negative); Protein Urine UA 2+ (Negative); Specific Gravity Urine UA 1.025 (1.000-1.035); Urobilinogen Urine UA 0.2 E.U./dL (0.2)
[2022-02-04 10:45] LABS: Bacteria Urine None Seen; Culture Indicated Urine Cult Not Indicated; RBC Urine 5-10/HPF (0-5/HPF); WBC Urine None Seen (0-5/HPF)
[2022-02-05 05:33] LABS: Complement C3 119 mg/dL (82-167)
[2022-02-05 09:42] LABS: Add Manual Diff / Slide Review NO; Basophils Absolute Auto 0 /uL (0-100); Basophils Percent Auto 0.4 % (0-2); Eosinophils Absolute Auto 400 /uL (0-450); Eosinophils Percent Auto 5.2 % (2-4); Hematocrit 43.7 % (41-53); Hemoglobin 14.9 g/dL (13.5-17.5); Lymphocytes Absolute Auto 1400 /uL (1100-4500); Lymphocytes Percent Auto 17.5 % (25-40); Mean Corpuscular Hemoglobin 32.2 PG (26-34); Mean Corpuscular Volume 94.6 fL (80-100); Monocytes Absolute Auto 700 /uL (0-900); Monocytes Percent Auto 8.8 % (3-14); Neutrophils Absolute Auto 5400 /uL (1500-7000); Neutrophils Percent Auto 68.1 % (50-75); Platelet Count 148 X10^3/uL (150-400); Red Blood Cell Count 4.62 X10^6/uL (4.5-5.9); Red Cell Distribution Width 14.7 % (11.6-14.8); White Blood Cell Count 7.9 X10^3/uL (4.5-11.0)
[2022-02-05 14:33] LABS: DNA (DS) Antibody <1 IU/mL (0-9)
[2022-02-05 14:35] LABS: Free Kappa Lt Chains, Serum 26.8 mg/L (3.3-19.4)
[2022-02-06 12:46] LABS: Cytoplasmic C-ANCA <1:20 titer (Neg:<1:20); Perinuclear P-ANCA <1:20 titer (Neg:<1:20)
[2022-02-06 13:47] LABS: Immunoglobulin A, Serum 205 mg/dL (61-437); Immunoglobulin G,Serum 1088 mg/dL (603-1613); Immunoglobulin M, Serum 69 mg/dL (15-143)
[2022-02-06 14:52] LABS: ANA Screen, IFA Negative (.)
[2022-02-06 15:12] LABS: Albumin 3.4 g/dL (2.9-4.4); Alpha-1-Globulin 0.3 g/dL (0.0-0.4); Alpha-2-Globulin 0.9 g/dL (0.4-1.0); Globulin Total 3.1 g/dL (2.2-3.9); Protein, Total 6.5 g/dL (6.0-8.5)
[2022-02-09 15:12] LABS: Alpha-1 Globulin, Ur 0.6 % (.); Beta Globulin, Ur 11.3 % (.); Gamma Globulin, Ur 7.1 % (.); M-Spike % Not Observed % (Not Observed); Urine Total Protein 152.1 mg/dL (Not Estab.)
== END ==
PROVIDERS: PCP Internal Medicine; Referring Provider Student in an Organized Health Care Education/Training Program; Visit Provider Student in an Organized Health Care Education/Training Program
DX: M31.30 Wegener's granulomatosis without renal involvement (principal); M32.10 Systemic lupus erythematosus, organ or system involvement unspecified; N00.9 Acute nephritic syndrome with unspecified morphologic changes; D89.89 Other specified disorders involving the immune mechanism, not elsewhere classified; D70.9 Neutropenia, unspecified; D63.1 Anemia in chronic kidney disease; R80.9 Proteinuria, unspecified; D47.9 Neoplasm of uncertain behavior of lymphoid, hematopoietic and related tissue, unspecified; N30.00 Acute cystitis without hematuria
CPT/HCPCS: 36415; 80048; 81001; 82570; 82784; 83516; 83883; 84155; 84156; 84165; 84166; 85025; 86038; 86160; 86225; 86256; 86334; 86335

== ENCOUNTER → 2022-02-17 09:32 | Outpatient (CLI) | payer MEDICARE, OTHER, SELFPAY ==
[2022-02-17 11:22] LABS: COVID19 -Nasal RAPID Negative (Negative)
== END ==
PROVIDERS: PCP Internal Medicine; Visit Provider Surgery
DX: Z20.822 Contact with and (suspected) exposure to COVID-19 (principal); Z01.812 Encounter for preprocedural laboratory examination
CPT/HCPCS: 87635; C9803

== ENCOUNTER 2022-02-18 12:28 | Day surgery (SDC) | payer MEDICARE, OTHER, SELFPAY ==
--- NOTE | 2022-02-18 | PATH_ITS ---
[facility] Accession Number: [id number] No. of containers..02 Tissue . 01 Material submitted: . PART A: gastrointestinal site - GASTRIC PART B: esophagus - ESOPHAGEAL . 01 Diagnosis: A. Stomach, Biopsy: Antral mucosa with mild chronic gastritis. Negative for Helicobacter by immunohistochemistry. Negative for intestinal metaplasia. Negative for dysplasia and malignancy. . B. Esophagus, Biopsy: Squamous epithelium with increased intraepithelial eosinophils up to 30 per high-power field). Please see comment. Negative for dysplasia and malignancy. [facility] 02/23/2022 1300 Local . 01 Comment: B. In the proper clinical setting, the histopathologic appearance would support a clinical impression of eosinophilic esophagitis. The differential diagnosis includes drug reaction, gastroesophageal reflux, and food allergies. . . 01 Electronically signed: . Bertha Lopes MD, Pathologist NPI- [id number] . 01 Gross description: . Part A: GASTRIC: Received in formalin are 2 fragment(s) of giang, soft tissue measuring 0.4 x 0.3 x 0.2 cm to 0.2 x 0.1 x 0.1 cm submitted entirely in 1 cassette(s) Part B: ESOPHAGEAL: Received in formalin are 2 fragment(s) of giang, soft tissue measuring 0.2 x 0.1 x 0.1 cm to 0.1 x 0.1 x 0.1 cm submitted entirely in 1 cassette(s) /CPE 02/19/2022 0847 Local . 01 Microscopic: . A. An immunohistochemical stain was performed to evaluate for Helicobacter organisms and is negative. The control stain showed appropriate reactivity. . * This test was developed and its performance characteristics determined by [facility]. It has not been cleared or approved by the U.S. Food and Drug Administration. The FDA has determined that such clearance or approval is not necessary. This test is used for clinical purposes. It should not be regarded as investigational or for research. . 01 Pathologist provided ICD-10: R13.10, K20.0 . 01 CPT . 590011, 539632, X14221 Specimen Comment: A courtesy copy of this report has been sent to [phone] Performed at: 01 [facility] [address] [place] [address], [place], [place] [id number] MD Keaton Cheung MD Phone: [phone]
[2022-02-18 14:24] VITALS: BP 170/80; PULSE 108; RESP 16; TEMP 35.9; O2SAT 100
[2022-02-18 14:25] VITALS: BMI 28.4
[2022-02-18] MEDS: SODIUM CHLORIDE 0.9% 1,000 ML 70 ML IV (14:44)
--- NOTE | 2022-02-18 15:20 | PM.HP.1 ---
History of Present Illness History of Present Illness Date Patient Seen: 02/18/22 Time Patient Seen: 15:10 Chief complaint: SDC Narrative: Patient is a very pleasant 82-year-old male who presented for upper endoscopy. Patient describes esophageal dysphagia feeling that food gets stuck. He did undergo a barium swallow exam that did show a hiatal hernia, Schatzki's ring, and dysmotility of the esophagus. He has not had previous esophageal dilation. Patient History Medical History BPH (benign prostatic hyperplasia) Chronic a-fib Chronic renal failure, stage 2 (mild) Coronary artery disease Diverticular disease Elevated PSA GI bleed HTN (hypertension) Hyperlipemia Hypothyroidism Presence of Watchman left atrial appendage closure device (~12/2020) Uncomplicated type 2 diabetes mellitus Surgical History History of tonsillectomy S/P CABG x 2 (03/25/09) Status post colectomy Status post coronary artery bypass graft Family & Social History Family History Father Heart disease Mother Obesity Hypertension Diabetes mellitus Social History: household members spouse Tobacco & Substance use: Smoking Status Never smoker alcohol intake former Substance Use Type does not use Meds Home Medications and Allergies Home Medications Medication Instructions Recorded Confirmed Type dutasteride 0.5 mg capsule 0.5 mg PO QDAY #0 01/26/11 02/18/22 History (Avodart) ascorbic acid (vitamin C) 500 mg 500 mg PO DAILY 04/26/18 02/18/22 History tablet (Vitamin C) psyllium seed (sugar) oral powder 1 tbsp PO DAILY 04/01/20 02/18/22 History (Metamucil (sugar)) Glucosamine Sulfate 1,000 mg PO DAILY 06/21/20 02/18/22 History patiromer calcium sorbitex 8.4 16.8 gram PO DAILY each 06/21/20 02/18/22 History gram oral powder packet (Veltassa) losartan 50 mg tablet 50 mg PO DAILY tab 12/27/20 02/18/22 History metoprolol succinate 50 mg 50 mg PO QDAY #0 tab 12/27/20 02/18/22 History tablet,extended release 24 hr omega 7-vpg-yqd-fish oil 1,000 mg 2 cap PO Q DAY #0 cap 12/27/20 02/18/22 History (120 mg-180 mg) capsule (Fish Oil) tamsulosin 0.4 mg capsule (Flomax) 0.4 mg PO BID cap 12/27/20 02/18/22 History Glucose: Test Strips #1 ea 06/20/21 12/19/21 History atorvastatin 40 mg tablet 40 mg PO QPM #90 tab 08/19/21 12/19/21 Rx levothyroxine 125 mcg tablet 125 mcg PO DAILY #90 tab 12/26/21 02/18/22 Rx (Synthroid) metformin 500 mg tablet See Rx Instructions .ROUTE 02/02/22 02/18/22 Rx .COMPLEX #180 tablet Allergies Allergy/AdvReac Type Severity Reaction Status Date / Time No Known Drug Allergies Allergy Verified 02/18/22 14:16 Review of Systems Review of Systems ROS: Yes All systems reviewed with the patient and are negative except as otherwise documented Exam Vital Signs (past 8 hours): - 02/18/22 14:24 Temperature 96.7 F L Pulse Rate 108 H Respiratory Rate 16 Blood Pressure 170/80 H Pulse Oximetry 100 Oxygen Delivery Method Room Air Const General: cooperative, healthy appearing, comfortable, well developed, well groomed and No acute distress HENWV Head: normocephalic and atraumatic Resp Effort & Inspection: normal respiratory effort, able to speak in complete sentences and no audible wheezes Auscultation: clear to auscultation bilaterally Cardio Rate: regular rate Rhythm: regular rhythm GI Palpation: soft and No rigid Extrem General: no clubbing, cyanosis or edema Assessment & Plan Assessment & Plan narrative: 1. Esophageal dysphagia 2. Abnormal esophagram EGD today with possible dilation, further recommendations to follow Time Spent With Patient Critical Care time: I spent a total of [] minutes of critical care time on this patient's care today; this time is exclusive of procedural time.
--- NOTE | 2022-02-18 15:39 | PM.OP.EGD ---
Operative Date/Time/Diagnoses Date of procedure: 02/18/22 Time of procedure: 15:29 Procedure Notes Procedure in detail: Surgeon: Ailyn Del Toro DO Procedure: Esophagogastroduodenoscopy with biopsy and dilation Preoperative diagnosis: 1. Esophageal dysphagia 2. Abnormal esophagram Postoperative diagnosis: 1. Tortuous esophagus 2. Subtle Schatzki's ring in the lower 3rd of the esophagus dilated with balloon to 15 mm 3. Small hiatal hernia 4. Antral gastritis, biopsied to rule out H pylori 5. No gross lesions noted in the duodenum 6. Exam otherwise unremarkable Medications: Monitored anesthesia care Preanesthesia Assessment An H and P was performed/updated and the Px?s ASA class is 3. The procedure was discussed in detail with the patient. The potential risks and complications including infection, bleeding, missed lesions, perforation, need for surgery in case of perforation, prolonged hospital stay, and were explained. A brief question and answer period was allotted and once all questions were answered, informed consent was obtained. The patient was brought back to the procedure room and placed on standard monitoring. The patient?s vital signs were monitored continuously throughout the entire procedure. Prior to starting, a timeout was performed to confirm the patient?s identity, allergies, medications, and procedure. Procedure in detail The patient was placed in left lateral decubitus position and a bite block was inserted. The tip of the upper endoscope was placed into the mouth and advanced without difficulty under direct visualization into the esophagus. Esophagus: Moderately tortuous esophagus in the lower middle 3rd Subtle Schatzki's ring at 30 esophagus dilated with balloon to 15 mm La-A esophagitis, biopsy to rule out Castillo's esophagus Stomach: Antral gastritis, biopsied to rule out H pylori Small hiatal hernia noted on retroflexion Duodenum: Normal appearing duodenum The patient tolerated the procedure well and will be brought back to the recovery area to be discharged once criteria are met. Complications There were no complications and estimated blood loss was minimal. Recommendations: Resume previous diet Continue outPx medications Follow up pathology results Office follow up to be scheduled An emergency contact number was given to the patient for any complications related to the procedure
[2022-02-18 15:43] VITALS: BP 126/84; PULSE 95; RESP 14; TEMP 35.9; O2SAT 94
[2022-02-18 15:48] VITALS: BP 116/82; PULSE 106; RESP 24; O2SAT 97
[2022-02-18 15:53] VITALS: BP 126/79; PULSE 98; RESP 12; TEMP 36.2; O2SAT 96
[2022-02-18 16:00] VITALS: BP 129/73; PULSE 87; RESP 14; TEMP 36.2; O2SAT 96
== END 2022-02-18 16:28 | disposition home or self-care (01) ==
PROVIDERS: PCP Internal Medicine; Referring Provider Student in an Organized Health Care Education/Training Program; Visit Provider Student in an Organized Health Care Education/Training Program
PROC: 0DJ08ZZ Inspection of Upper Intestinal Tract, Via Natural or Artificial Opening Endoscopic (ICD-10-PCS; CPT 43235; principal; 2022-02-18 14:00)
DX: K20.0 Eosinophilic esophagitis (principal); I10 Essential (primary) hypertension; E05.90 Thyrotoxicosis, unspecified without thyrotoxic crisis or storm; I12.9 Hypertensive chronic kidney disease with stage 1 through stage 4 chronic kidney disease, or unspecified chronic kidney disease; N18.9 Chronic kidney disease, unspecified; I25.10 Atherosclerotic heart disease of native coronary artery without angina pectoris; I48.91 Unspecified atrial fibrillation; K22.2 Esophageal obstruction; K44.9 Diaphragmatic hernia without obstruction or gangrene; K29.50 Unspecified chronic gastritis without bleeding
CPT/HCPCS: 43249; 43239; 82962; J2704

== ENCOUNTER → 2022-03-19 06:44 | Outpatient (CLI) | payer MEDICARE, OTHER, SELFPAY ==
[2022-03-19 07:47] LABS: BUN Creatinine Ratio 31.6 (6-22); Blood Urea Nitrogen 30 mg/dL (9-20); Calcium 9.4 mg/dL (8.4-10.2); Carbon Dioxide 27 mmol/L (22-32); Chloride 107 mmol/L (98-107); Estimated Glomerular Filt Rate > 60 mL/min (>60); Glucose 109 mg/dL (80-110); HEMOLYSIS < 15 (0-50); Potassium 4.6 mmol/L (3.4-5.1); Sodium 140 mmol/L (137-145)
[2022-03-19 08:22] LABS: Creatinine Urine Random 115.8 mg/dL; Protein (Total) Urine Random 177 mg/dL (0-12); Protein Creatinine Ratio Urine 1.52 GRAM/24H
[2022-03-20 06:22] LABS: Parathyroid Hormone Int 37 pg/mL (15-65)
== END ==
PROVIDERS: PCP Internal Medicine; Referring Provider Student in an Organized Health Care Education/Training Program; Visit Provider Student in an Organized Health Care Education/Training Program
DX: N05.9 Unspecified nephritic syndrome with unspecified morphologic changes (principal); N25.81 Secondary hyperparathyroidism of renal origin; R80.9 Proteinuria, unspecified
CPT/HCPCS: 36415; 80048; 82570; 83970; 84156

== ENCOUNTER → 2022-04-02 06:53 | Outpatient (CLI) | payer MEDICARE, OTHER, SELFPAY ==
[2022-04-02 08:22] LABS: HEMOLYSIS < 15 (0-50); Potassium 4.5 mmol/L (3.4-5.1)
== END ==
PROVIDERS: PCP Internal Medicine; Referring Provider Student in an Organized Health Care Education/Training Program; Visit Provider Student in an Organized Health Care Education/Training Program
DX: E87.5 Hyperkalemia (principal)
CPT/HCPCS: 36415; 84132

== ENCOUNTER → 2022-06-16 06:40 | Outpatient (CLI) | payer MEDICARE, OTHER, SELFPAY ==
[2022-06-16 08:52] LABS: Alanine Aminotransferase 24 IU/L (<50); Albumin 4.2 g/dL (3.5-5.0); Albumin Globulin Ratio 1.3 (1.0-2.8); Alkaline Phosphatase 77 U/L (38-126); Aspartate Aminotransferase 31 IU/L (17-59); BUN Creatinine Ratio 29.6 (6-22); Bilirubin Total 0.6 mg/dL (0.2-1.3); Blood Urea Nitrogen 29 mg/dL (9-20); Calcium 9.4 mg/dL (8.4-10.2); Carbon Dioxide 26 mmol/L (22-32); Chloride 106 mmol/L (98-107); Cholesterol 142 mg/dL (140-199); Estimated Glomerular Filt Rate > 60 mL/min (>60); Globulin 3.2 g/dL (1.7-4.1); Glucose 110 mg/dL (80-110); HDL Cholesterol 49 mg/dL (40-60); HEMOLYSIS < 15 (0-50); LDL Cholesterol Calculated 71 mg/dL (<100); Sodium 139 mmol/L (137-145); Total Protein 7.4 g/dL (6.3-8.2); Triglycerides 111 mg/dL (35-150)
[2022-06-16 08:53] LABS: Potassium 5.5 mmol/L (3.4-5.1)
[2022-06-16 09:21] LABS: Hemoglobin A1C% w Est Avg Glu 6.3 % (4.0-6.0)
== END ==
PROVIDERS: PCP Internal Medicine; Referring Provider Internal Medicine; Visit Provider Internal Medicine
DX: E11.9 Type 2 diabetes mellitus without complications (principal); E78.2 Mixed hyperlipidemia; I10 Essential (primary) hypertension; I48.20 Chronic atrial fibrillation, unspecified
CPT/HCPCS: 36415; 80053; 80061; 83036

== ENCOUNTER → 2022-06-26 06:42 | Outpatient (CLI) | payer MEDICARE, OTHER, SELFPAY ==
[2022-06-26 09:04] LABS: BUN Creatinine Ratio 27.5 (6-22); Blood Urea Nitrogen 28 mg/dL (9-20); Calcium 9.1 mg/dL (8.4-10.2); Carbon Dioxide 25 mmol/L (22-32); Chloride 105 mmol/L (98-107); Estimated Glomerular Filt Rate > 60 mL/min (>60); Glucose 102 mg/dL (80-110); HEMOLYSIS < 15 (0-50); Potassium 4.7 mmol/L (3.4-5.1); Sodium 141 mmol/L (137-145)
[2022-06-26 09:21] LABS: Creatinine Urine Random 180.3 mg/dL; Protein (Total) Urine Random 181 mg/dL (0-12)
== END ==
PROVIDERS: PCP Internal Medicine; Referring Provider Student in an Organized Health Care Education/Training Program; Visit Provider Student in an Organized Health Care Education/Training Program
DX: N05.9 Unspecified nephritic syndrome with unspecified morphologic changes (principal); R80.9 Proteinuria, unspecified
CPT/HCPCS: 36415; 80048; 82570; 84156

== ENCOUNTER → 2022-11-21 07:17 | Outpatient (CLI) | payer MEDICARE, OTHER, SELFPAY ==
[2022-11-21 09:11] LABS: Hematocrit 42.2 % (41-53); Hemoglobin 14.1 g/dL (13.5-17.5)
[2022-11-21 10:05] LABS: BUN Creatinine Ratio 38.8 (6-22); Blood Urea Nitrogen 40 mg/dL (9-20); Calcium 9.6 mg/dL (8.4-10.2); Carbon Dioxide 24 mmol/L (22-32); Chloride 106 mmol/L (98-107); Estimated Glomerular Filt Rate > 60 mL/min (>60); Glucose 101 mg/dL (80-110); HEMOLYSIS < 15 (0-50); Potassium 5.1 mmol/L (3.4-5.1); Sodium 140 mmol/L (137-145)
[2022-11-21 10:07] LABS: Creatinine Urine Random 113.2 mg/dL; Protein (Total) Urine Random 162 mg/dL (0-12); Protein Creatinine Ratio Urine 1.43 GRAM/24H
[2022-11-24 07:51] LABS: Parathyroid Hormone Int 45 pg/mL (15-65)
== END ==
PROVIDERS: PCP Internal Medicine; Referring Provider Student in an Organized Health Care Education/Training Program; Visit Provider Student in an Organized Health Care Education/Training Program
DX: N05.9 Unspecified nephritic syndrome with unspecified morphologic changes (principal); D64.9 Anemia, unspecified; N25.81 Secondary hyperparathyroidism of renal origin; R80.9 Proteinuria, unspecified
CPT/HCPCS: 36415; 80048; 82570; 83970; 84156; 85014; 85018

== ENCOUNTER → 2022-12-12 07:34 | Outpatient (CLI) | payer MEDICARE, OTHER, SELFPAY ==
[2022-12-12 09:33] LABS: Alanine Aminotransferase 23 IU/L (<50); Albumin 3.9 g/dL (3.5-5.0); Albumin Globulin Ratio 1.4 (1.0-2.8); Alkaline Phosphatase 70 U/L (38-126); Aspartate Aminotransferase 27 IU/L (17-59); BUN Creatinine Ratio 25.5 (6-22); Bilirubin Total 0.9 mg/dL (0.2-1.3); Blood Urea Nitrogen 26 mg/dL (9-20); Calcium 9.4 mg/dL (8.4-10.2); Carbon Dioxide 27 mmol/L (22-32); Chloride 106 mmol/L (98-107); Estimated Glomerular Filt Rate > 60 mL/min (>60); Globulin 2.8 g/dL (1.7-4.1); Glucose 105 mg/dL (80-110); HEMOLYSIS < 15 (0-50); Potassium 5.1 mmol/L (3.4-5.1); Sodium 140 mmol/L (137-145); Total Protein 6.7 g/dL (6.3-8.2)
[2022-12-12 11:47] LABS: Hemoglobin A1C% w Est Avg Glu 6.4 % (4.0-6.0)
[2022-12-12 12:09] LABS: Free T4, Direct Thyroxine 1.05 ng/dL (0.78-2.19)
[2022-12-12 12:23] LABS: Thyroid Stimulating Hormone 1.74 uIU/mL (0.47-4.68)
== END ==
PROVIDERS: PCP Internal Medicine; Referring Provider Physician Assistant Medical; Visit Provider Internal Medicine
DX: E11.9 Type 2 diabetes mellitus without complications (principal); E03.9 Hypothyroidism, unspecified; E78.2 Mixed hyperlipidemia; I10 Essential (primary) hypertension
CPT/HCPCS: 36415; 80053; 83036; 84439; 84443

== ENCOUNTER → 2023-05-08 07:38 | Outpatient (CLI) | payer MEDICARE, OTHER, SELFPAY ==
[2023-05-08 09:40] LABS: Alanine Aminotransferase 23 IU/L (<50); Albumin 4.3 g/dL (3.5-5.0); Albumin Globulin Ratio 1.5 (1.0-2.8); Alkaline Phosphatase 74 U/L (38-126); Aspartate Aminotransferase 32 IU/L (17-59); Bilirubin Total 1.2 mg/dL (0.2-1.3); Blood Urea Nitrogen 33 mg/dL (9-20); Calcium 9.6 mg/dL (8.4-10.2); Carbon Dioxide 23 mmol/L (22-32); Chloride 106 mmol/L (98-107); Cholesterol 131 mg/dL (140-199); Estimated Glomerular Filt Rate > 60 mL/min (>60); Globulin 2.8 g/dL (1.7-4.1); Glucose 95 mg/dL (80-110); HDL Cholesterol 47 mg/dL (40-60); HEMOLYSIS < 15 (0-50); LDL Cholesterol Calculated 59 mg/dL (<100); Potassium 5.1 mmol/L (3.4-5.1); Sodium 137 mmol/L (137-145); Total Protein 7.1 g/dL (6.3-8.2); Triglycerides 123 mg/dL (35-150)
[2023-05-10 02:39] LABS: Labcorp Hemoglobin (Hb) A1c 6.4 % (4.8-5.6)
== END ==
PROVIDERS: PCP Internal Medicine; Referring Provider Internal Medicine Cardiovascular Disease; Visit Provider Internal Medicine Cardiovascular Disease
DX: I10 Essential (primary) hypertension (principal); I25.10 Atherosclerotic heart disease of native coronary artery without angina pectoris; E11.9 Type 2 diabetes mellitus without complications
CPT/HCPCS: 80053; 80061; 83036

== ENCOUNTER → 2023-05-20 12:26 | Outpatient (CLI) | payer MEDICARE, OTHER, SELFPAY ==
--- NOTE | 2023-05-20 | DI.ECHO.S_ITS ---
[facility] +---------+ : : [address] : : : : [id number] : : : : Phone: [phone] Echocardiogram Report + + :Name: JOAQUIN ESPINO Study Date: 05/20/2023 Height: 68 in : :[facility] ReadingLocation: Weight: 176 lb : : Gender: Male BSA: 1.9 m2 : :: 1940 Age: 83 yrs BP: 151/93 mmHg: :Reason For Study: Unspecified Atrial Fibrillation : :Ordering Physician: DEBI, : :SATINDER Performed By: Magda Gilbert : :Referring: SATINDER SAWYER : + + Interpretation Summary The left ventricle is normal in size. Left ventricular systolic function is mildly reduced. The ejection fraction is estimated to be 45-50%. There has been no significant change since the previous exam. There is hypokinesis to akinesis along the proximal inferior/inferolateral and mid inferolateral segments. Compared to the prior exam, the left ventricular wall motion has not changed. Diastolic function could not be accurately assessed due to atrial fibrillation. The right ventricle is mildly dilated. Right ventricular systolic function is borderline reduced. The right ventricular systolic pressure is estimated to be at least 22 mmHg based on an estimated right atrial pressure of 3 mm Hg. The left atrium is mildly dilated. The right atrium is severely dilated. There is mild mitral regurgitation. There is mild aortic regurgitation. The aortic root is normal size. Procedure: A two-dimensional transthoracic echocardiogram with color flow and Doppler was performed. The study quality was technically adequate. Comparison is made with the echocardiogram of 08/09/2020. The patient was in atrial fibrillation with heart rates between 52-83 bpm during the exam. Left Ventricle: The left ventricle is normal in size. Left ventricular systolic function is mildly reduced. The ejection fraction is estimated to be 45-50%. There has been no significant change since the previous exam. There is hypokinesis to akinesis along the proximal inferior/inferolateral and mid inferolateral segments. Compared to the prior exam, the left ventricular wall motion has not changed. Diastolic function could not be accurately assessed due to atrial fibrillation. Right Ventricle: The right ventricle is mildly dilated. Right ventricular systolic function is borderline reduced. Atria: The left atrium is mildly dilated. The right atrium is severely dilated. There is no Doppler evidence for an interatrial shunt. Mitral Valve: The mitral valve is normal. There is no mitral valve stenosis. There is mild mitral regurgitation. Aortic Valve: The aortic valve is trileaflet. The aortic valve opens well. There is moderate aortic valve sclerosis. There is no aortic valve stenosis. There is mild aortic regurgitation. Tricuspid Valve: Tricuspid leaflets are thickened. There is no tricuspid stenosis. There is mild to moderate tricuspid regurgitation. The right ventricular systolic pressure is estimated to be at least 22 mmHg based on an estimated right atrial pressure of 3 mm Hg. Pulmonic Valve: The pulmonic valve leaflets are thin and pliable; valve motion is normal. There is no pulmonic valvular stenosis. There is trace pulmonic regurgitation. Great Vessels: The aortic root is normal size. The ascending aorta is normal in size. The pulmonary artery is normal size. The IVC is of normal diameter and collapses greater than 50% with a sniff. This suggests a low right atrial pressure of 3 mm Hg. Pericardium/ Pleura There is no pericardial effusion. There is no pleural effusion. MMode/2D Measurements & Calculations LVIDd: 4.7 cm LVOT diam: 1.8 cm LVIDs: 4.3 cm Ao root diam: 3.3 cm FS: 8.5 % asc Aorta Diam: 3.5 cm IVSd: 1.5 cm LVPWd: 1.1 cm LV arriaza. diameter/BSA (cm/m^2): 2.4 LV sys. diameter/BSA (cm/m^2): 2.2 LA A2 area: 19.5 cm2 RA long axis: 6.8 cm LA A4 area: 23.2 cm2 RA area: 28.2 cm2 LA length (vol): 5.4 cm RA vol: 99.0 ml LA vol: 70.6 ml RA : 51.1 ml/m2 LA vol index: 36.5 ml/m2 RVD1 (basal): 4.4 cm LVLs ap4: 6.9 cm LVLd ap2: 7.8 cm TAPSE_phl: 1.5 cm LVLs ap2: 6.8 cm Doppler Measurements & Calculations Ao V2 max: 116.4 cm/sec LVOT Max Alf: 59.8 cm/sec Ao V2 mean: 80.5 cm/sec LV V1 max P.4 mmHg Ao max P.0 mmHg LV V1 VTI: 13.1 cm Ao mean P.2 mmHg LIZ(I,D): 1.4 cm2 Ao V2 VTI: 23.7 cm LIZ(V,D): 1.3 cm2 sev ratio: 0.55 LIZ indexed to BSA (cm^2/m^2): 0.72 MV E max alf: 94.1 cm/sec TR max alf: 211.0 cm/sec MV A max alf: 60.2 cm/sec TR max P.3 mmHg MV E/A: 1.6 PA V2 max: 64.9 cm/sec MV dec time: 0.13 sec PA V2 mean: 41.5 cm/sec PA mean P.0 mmHg PA pr(Accel): 47.9 mmHg SV(LVOT): 33.3 ml AV VR_phl: 0.52 LIZ(VTI)/BSA_phl: 0.72 Reading Physician:04:26 PM
== END ==
PROVIDERS: PCP Internal Medicine; Referring Provider Internal Medicine Cardiovascular Disease; Visit Provider Internal Medicine Cardiovascular Disease
DX: I08.3 Combined rheumatic disorders of mitral, aortic and tricuspid valves (principal); I48.91 Unspecified atrial fibrillation; I25.10 Atherosclerotic heart disease of native coronary artery without angina pectoris
CPT/HCPCS: 93306

== ENCOUNTER 2023-09-08 07:35 | Emergency (ER) | payer MEDICARE, OTHER, SELFPAY ==
[2023-09-08] VITALS (20 sets, daily range): BP systolic 126–152; BP diastolic 64–87; PULSE 61–99; RESP 14–24; TEMP 37; O2SAT 95–98; BMI 27.3
--- NOTE | 2023-09-08 07:40 | DI.RAD.S_ITS ---
PROCEDURE: XR CHEST 1V INDICATIONS: weakness TECHNIQUE: One view of the chest was acquired. COMPARISON: [facility], , CHEST 1 VIEW, 06/12/2013, 22:28. FINDINGS: Surgical changes and devices: Median sternotomy wires. Surgical clips projecting the mediastinum. Lungs and pleura: Lungs are clear. No pleural effusions or pneumothorax. Mediastinum: Mediastinal contours appear normal. Heart size is enlarged. Bones and chest wall: No suspicious bony lesions. Overlying soft tissues appear unremarkable. IMPRESSION: No focal pulmonary consolidations. Cardiomegaly. Dictated by: Ran Kim M.D. on 09/08/2023 at 8:06 Approved by: Ran Kim M.D. on 09/08/2023 at 8:07
[2023-09-08 07:51] LABS: Add Manual Diff / Slide Review NO; Basophils Absolute Auto 0 /uL (0-100); Basophils Percent Auto 0.4 % (0-2); Eosinophils Absolute Auto 400 /uL (0-450); Eosinophils Percent Auto 6.6 % (2-4); Hematocrit 43.8 % (41-53); Hemoglobin 14.6 g/dL (13.5-17.5); Lymphocytes Absolute Auto 1000 /uL (1100-4500); Mean Corpuscular HGB Conc 33.4 % (30-36); Mean Corpuscular Volume 95.7 fL (80-100); Monocytes Absolute Auto 300 /uL (0-900); Neutrophils Absolute Auto 4600 /uL (1500-7000); Platelet Count 134 X10^3/uL (150-400); Red Blood Cell Count 4.57 X10^6/uL (4.5-5.9); Red Cell Distribution Width 13.7 % (11.6-14.8); White Blood Cell Count 6.4 X10^3/uL (4.5-11.0)
--- NOTE | 2023-09-08 07:57 | ED.GENADULT ---
HPI - General Adult General Chief complaint: Weakness Stated complaint: weakness Time Seen by Provider: 09/08/23 07:39 Source: patient and EMS Mode of arrival: EMS History of Present Illness HPI narrative: 83-year-old male with history of AFib, hypertension, diabetes, hyperlipidemia, presents by EMS for evaluation of gradually worsening generalized weakness over the past few days. He denies any fever chills nor nausea, vomiting or diarrhea. He is had no change in medications or diet. He states that he went downstairs to prepare breakfast and noted that his dog had made a mess on the floor, he bent down and attempt to clean it up and found himself too weak to stand back up, he then crawled to the phone to call EMS. He denies chest pain or shortness of breath. He is had no respiratory complaints Related Data Home Medications Medication Instructions Recorded Confirmed dutasteride 0.5 mg capsule 0.5 mg PO QDAY ##0 01/26/11 06/15/23 (Avodart) ascorbic acid (vitamin C) 500 mg 500 mg PO DAILY 04/26/18 06/15/23 tablet (Vitamin C) psyllium seed (sugar) oral powder 1 tbsp PO DAILY 04/01/20 06/15/23 (Metamucil (sugar) oral powder) Glucosamine Sulfate 1,000 mg PO DAILY 06/21/20 06/15/23 patiromer calcium sorbitex 8.4 16.8 gram PO DAILY 06/21/20 06/15/23 gram oral powder packet (Veltassa) losartan 50 mg tablet 50 mg PO DAILY 12/27/20 06/15/23 omega 6-bbc-nuo-fish oil 1,000 mg 2 cap PO Q DAY #0 caps 12/27/20 06/15/23 (120 mg-180 mg) capsule (Fish Oil) tamsulosin 0.4 mg capsule (Flomax) 0.4 mg PO BID enlarged prostate 12/27/20 06/15/23 Glucose: Test Strips #1 ea 06/20/21 06/15/23 aspirin 81 mg tablet,delayed 81 mg PO DAILY 06/18/22 06/15/23 release (Adult Low Dose Aspirin) metoprolol succinate 25 mg 25 mg PO BID 06/15/23 06/15/23 tablet,extended release 24 hr Previous Rx's Medication Instructions Recorded levothyroxine 125 mcg tablet 125 mcg PO DAILY #90 tabs 10/12/22 (Synthroid) atorvastatin 40 mg tablet 40 mg PO QPM #90 tabs 01/15/23 metformin 500 mg tablet 500 mg PO BID #180 tabs 06/15/23 Allergies Allergy/AdvReac Type Severity Reaction Status Date / Time No Known Drug Allergies Allergy Verified 06/15/23 09:24 Review of Systems Review of Systems Narrative: GENERAL: See HPI HEENT: Denies sinus pain, ear pain, sore throat, difficulty swallowing, dizziness. RESPIRATORY: Denies dyspnea, cough, wheezing, hemoptysis, sputum. CARDIOVASCULAR: Denies chest pain, palpitations, orthopnea, edema, GASTROINTESTINAL: Denies nausea, vomiting, abdominal pain, diarrhea, constipation, melena. : Denies dysuria, frequency, incontinence, hematuria, urinary retention. MUSCULOSKELETAL: denies weakness, joint pain, or bony pain SKIN: Denies rash, skin lesions, or other NEUROLOGIC: Denies weakness, headache, numbness, change in speech, confusion, seizures, incoordination. PSYCHIATRIC: No concerning psychosocial issues. 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 Well-developed patient, in mild distress. HEAD: Atraumatic. Normocephalic. EYES: Pupils equal round and reactive. Extraocular motions intact. No scleral icterus. No injection or drainage. ENT: Dry mucous membranes Nose without bleeding, purulent drainage. Throat without erythema, tonsillar hypertrophy or exudate. Airway patent. NECK: Trachea midline. Non tender CARDIOVASCULAR: Regular rate and rhythm without murmurs, gallops, or rubs. RESPIRATORY: Clear to auscultation. Breath sounds equal bilaterally. No wheezes, rales, or rhonchi. GASTROINTESTINAL: Abdomen soft, non-tender, nondistended. EXTREMITIES: No edema or joint tenderness. BACK: Nontender without deformity or crepitance. No flank tenderness. NEURO: AOx3. SKIN: Poor skin turgor No rash or erythema of visible areas Initial Vital Signs Initial Vital Signs: Vital Signs Blood Pressure 147/72 H 09/08/23 07:40 Course Orders Ordered: Discontinued Medications Sodium Chloride (Normal Saline 0.9%) 1,000 mls @ 150 mls/hr IV CONT REYNALDO Last Infusion: 09/08/23 12:33 Dose: Infused Documented By: Admin: 09/08/23 07:58 Dose: 150 mls/hr Documented By: SUDHAKAR Sodium Chloride (Normal Saline 0.9%) 500 mls @ 1,000 mls/hr IV BOLUS ONE Stop: 09/08/23 10:03 Last Infusion: 09/08/23 10:23 Dose: Infused Documented By: Admin: 09/08/23 10:09 Dose: 1,000 mls/hr Documented By: SANGITA Vital Signs Vital signs: Vital Signs - 8 hr 09/08/23 07:40 09/08/23 07:41 09/08/23 07:43 Temperature 98.6 F Pulse Rate 78 75 Pulse Rate [Orthostatic Lying] Pulse Rate [Orthostatic Sitting] Pulse Rate [Orthostatic Standing] Respiratory Rate 24 20 Blood Pressure 147/72 H 147/72 H Blood Pressure [Orthostatic Lying] Blood Pressure [Orthostatic Sitting] Blood Pressure [Orthostatic Standing] Pulse Oximetry 95 97 Oxygen Delivery Method Room Air 09/08/23 08:00 09/08/23 08:00 09/08/23 08:30 Temperature Pulse Rate 74 66 Pulse Rate [Orthostatic Lying] Pulse Rate [Orthostatic Sitting] Pulse Rate [Orthostatic Standing] Respiratory Rate 16 17 Blood Pressure 131/76 Blood Pressure [Orthostatic Lying] Blood Pressure [Orthostatic Sitting] Blood Pressure [Orthostatic Standing] Pulse Oximetry 95 97 Oxygen Delivery Method 09/08/23 08:30 09/08/23 09:00 09/08/23 09:00 Temperature Pulse Rate 63 Pulse Rate [Orthostatic Lying] Pulse Rate [Orthostatic Sitting] Pulse Rate [Orthostatic Standing] Respiratory Rate 22 Blood Pressure 129/82 137/64 Blood Pressure [Orthostatic Lying] Blood Pressure [Orthostatic Sitting] Blood Pressure [Orthostatic Standing] Pulse Oximetry 97 Oxygen Delivery Method 09/08/23 09:16 09/08/23 09:16 09/08/23 09:18 Temperature Pulse Rate 68 73 Pulse Rate [Orthostatic Lying] Pulse Rate [Orthostatic Sitting] Pulse Rate [Orthostatic Standing] Respiratory Rate 20 17 Blood Pressure 127/68 Blood Pressure [Orthostatic Lying] Blood Pressure [Orthostatic Sitting] Blood Pressure [Orthostatic Standing] Pulse Oximetry 96 98 Oxygen Delivery Method 09/08/23 09:18 09/08/23 09:19 09/08/23 09:19 Temperature Pulse Rate 71 Pulse Rate [Orthostatic Lying] Pulse Rate [Orthostatic Sitting] Pulse Rate [Orthostatic Standing] Respiratory Rate 16 Blood Pressure 140/72 152/72 H Blood Pressure [Orthostatic Lying] Blood Pressure [Orthostatic Sitting] Blood Pressure [Orthostatic Standing] Pulse Oximetry 97 Oxygen Delivery Method 09/08/23 09:27 09/08/23 09:30 09/08/23 09:30 Temperature Pulse Rate 62 Pulse Rate [Orthostatic Lying] 69 Pulse Rate [Orthostatic Sitting] 74 Pulse Rate [Orthostatic Standing] 80 Respiratory Rate 16 Blood Pressure 142/77 H Blood Pressure [Orthostatic Lying] 127/68 Blood Pressure [Orthostatic Sitting] 140/72 Blood Pressure [Orthostatic Standing] 152/72 H Pulse Oximetry 97 Oxygen Delivery Method 09/08/23 10:00 09/08/23 10:00 09/08/23 10:30 Temperature Pulse Rate 65 Pulse Rate [Orthostatic Lying] Pulse Rate [Orthostatic Sitting] Pulse Rate [Orthostatic Standing] Respiratory Rate 23 Blood Pressure 142/87 H 148/74 H Blood Pressure [Orthostatic Lying] Blood Pressure [Orthostatic Sitting] Blood Pressure [Orthostatic Standing] Pulse Oximetry 95 Oxygen Delivery Method 09/08/23 10:30 09/08/23 11:00 09/08/23 11:00 Temperature Pulse Rate 63 61 Pulse Rate [Orthostatic Lying] Pulse Rate [Orthostatic Sitting] Pulse Rate [Orthostatic Standing] Respiratory Rate 15 14 Blood Pressure 133/74 Blood Pressure [Orthostatic Lying] Blood Pressure [Orthostatic Sitting] Blood Pressure [Orthostatic Standing] Pulse Oximetry 96 95 Oxygen Delivery Method 09/08/23 11:30 09/08/23 11:30 09/08/23 11:55 Temperature Pulse Rate 61 Pulse Rate [Orthostatic Lying] Pulse Rate [Orthostatic Sitting] Pulse Rate [Orthostatic Standing] Respiratory Rate 16 Blood Pressure 134/86 140/78 Blood Pressure [Orthostatic Lying] Blood Pressure [Orthostatic Sitting] Blood Pressure [Orthostatic Standing] Pulse Oximetry 95 Oxygen Delivery Method 09/08/23 11:55 09/08/23 11:56 09/08/23 11:56 Temperature Pulse Rate 62 76 Pulse Rate [Orthostatic Lying] Pulse Rate [Orthostatic Sitting] Pulse Rate [Orthostatic Standing] Respiratory Rate Blood Pressure 152/74 H Blood Pressure [Orthostatic Lying] Blood Pressure [Orthostatic Sitting] Blood Pressure [Orthostatic Standing] Pulse Oximetry 96 96 Oxygen Delivery Method 09/08/23 11:57 09/08/23 11:57 09/08/23 12:01 Temperature Pulse Rate 81 99 H Pulse Rate [Orthostatic Lying] Pulse Rate [Orthostatic Sitting] Pulse Rate [Orthostatic Standing] Respiratory Rate 20 Blood Pressure 126/69 Blood Pressure [Orthostatic Lying] Blood Pressure [Orthostatic Sitting] Blood Pressure [Orthostatic Standing] Pulse Oximetry 96 97 Oxygen Delivery Method 09/08/23 12:03 Temperature Pulse Rate Pulse Rate [Orthostatic Lying] 68 Pulse Rate [Orthostatic Sitting] 65 Pulse Rate [Orthostatic Standing] 68 Respiratory Rate Blood Pressure Blood Pressure [Orthostatic Lying] 140/78 Blood Pressure [Orthostatic Sitting] 152/74 H Blood Pressure [Orthostatic Standing] 126/69 Pulse Oximetry Oxygen Delivery Method Medical Decision Making Lab Data 09/08/23 07:40 09/08/23 10:00 Labs: Lab Results 09/08/23 09/08/23 09/08/23 Range/Units 07:40 07:50 09:35 WBC 6.4 (4.5-11.0) X10^3/uL RBC 4.57 (4.5-5.9) X10^6/uL Hgb 14.6 (13.5-17.5) g/dL Hct 43.8 (41-53) % MCV 95.7 (80-100) fL MCH 32.0 (26-34) PG MCHC 33.4 (30-36) % RDW 13.7 (11.6-14.8) % Plt Count 134 L (150-400) X10^3/uL Neut % (Auto) 73.0 (50-75) % Lymph % (Auto) 15.0 L (25-40) % Noble % (Auto) 5.0 (3-14) % Eos % (Auto) 6.6 H (2-4) % Baso % (Auto) 0.4 (0-2) % Neut # (Auto) 4600 (0528-7212) /uL Lymph # (Auto) 1000 L (5551-4461) /uL Noble # (Auto) 300 (0-900) /uL Eos # (Auto) 400 (0-450) /uL Baso # (Auto) 0 (0-100) /uL Sodium 135 L (137-145) mmol/L Potassium 4.6 (3.4-5.1) mmol/L Chloride 103 (98-107) mmol/L Carbon Dioxide 21 L (22-32) mmol/L BUN 38 H (9-20) mg/dL Creatinine 1.78 H (0.66-1.25) mg/dL Estimated GFR 37 L (>60) mL/min BUN/Creatinine Ratio 21.3 (6-22) Glucose 164 H (80-110) mg/dL Calcium 10.9 H (8.4-10.2) mg/dL Total Bilirubin 0.7 (0.2-1.3) mg/dL AST 107 H (17-59) IU/L ALT 70 H (<50) IU/L Alkaline Phosphatase 72 (38-126) U/L Total Creatine Kinase 775 H (55-170) U/L Troponin I 0.041 H (0.01-0.034) ng/mL NT-Pro-B Natriuret Pep 2590 H (<450) pg/mL Total Protein 7.3 (6.3-8.2) g/dL Albumin 4.2 (3.5-5.0) g/dL Globulin 3.1 (1.7-4.1) g/dL Albumin/Globulin Ratio 1.4 (1.0-2.8) Lipase 128 (23-300) U/L Procalcitonin 0.07 (<0.5) ng/mL Ur Random Sodium 130 H (30-90) mmol/L Urine Creatinine 97.9 mg/dL SARS-CoV-2 (PCR) Negative (Negative) Influenza A (RT-PCR) Flu a negative (NEGATIVE) Influenza B (RT-PCR) Flu b negative (NEGATIVE) RSV (PCR) Negative (Negative) 09/08/23 Range/Units 10:00 WBC (4.5-11.0) X10^3/uL RBC (4.5-5.9) X10^6/uL Hgb (13.5-17.5) g/dL Hct (41-53) % MCV (80-100) fL MCH (26-34) PG MCHC (30-36) % RDW (11.6-14.8) % Plt Count (150-400) X10^3/uL Neut % (Auto) (50-75) % Lymph % (Auto) (25-40) % Noble % (Auto) (3-14) % Eos % (Auto) (2-4) % Baso % (Auto) (0-2) % Neut # (Auto) (2106-9275) /uL Lymph # (Auto) (5422-8001) /uL Noble # (Auto) (0-900) /uL Eos # (Auto) (0-450) /uL Baso # (Auto) (0-100) /uL Sodium 134 L (137-145) mmol/L Potassium 4.6 (3.4-5.1) mmol/L Chloride 105 (98-107) mmol/L Carbon Dioxide 24 (22-32) mmol/L BUN 38 H (9-20) mg/dL Creatinine 1.40 H (0.66-1.25) mg/dL Estimated GFR 50 L (>60) mL/min BUN/Creatinine Ratio 27.1 H (6-22) Glucose 84 (80-110) mg/dL Calcium 10.2 (8.4-10.2) mg/dL Total Bilirubin (0.2-1.3) mg/dL AST (17-59) IU/L ALT (<50) IU/L Alkaline Phosphatase (38-126) U/L Total Creatine Kinase 736 H (55-170) U/L Troponin I 0.043 H (0.01-0.034) ng/mL NT-Pro-B Natriuret Pep (<450) pg/mL Total Protein (6.3-8.2) g/dL Albumin (3.5-5.0) g/dL Globulin (1.7-4.1) g/dL Albumin/Globulin Ratio (1.0-2.8) Lipase (23-300) U/L Procalcitonin (<0.5) ng/mL Ur Random Sodium (30-90) mmol/L Urine Creatinine mg/dL SARS-CoV-2 (PCR) (Negative) Influenza A (RT-PCR) (NEGATIVE) Influenza B (RT-PCR) (NEGATIVE) RSV (PCR) (Negative) ECG Data Interpretation: 0744 - atrial fib, rate 82. No MDM Narrative Medical decision making narrative: CC: 83M with weakness Complicating co-morbidities: age, Afib, HTN Data collected from: Patient Medical records reviewed: Prior notes reviewed in our EMR Differential considered, but not limited to: dehydration vs. cardiac vs. infectious process Exam documented above, pertinent findings include: dry membranes, poor skin turgor, no dyspnea, stable vitals Lab Test results independently reviewed as above. Pertinent findings: No leukocytosis or left shift, no signs of anemia, primary electrolytes within normal limits, increased creatinine from a baseline of 1.0 up to 1.78, glucose slightly elevated at 1 6 4, LFTs within normal, procalcitonin normal, BNP elevated at 2590, trop slightly elevated at 0.041 Independently reviewed EKG as above Imaging studies independently reviewed: last echo in may with EF 45-50%, today's CXR without acute findings Consultations: discussed with partner of PCP (Randy). We have reviewed the patient's history and physical exam as well as labs and response to therapies and sure the opinion that he is appropriate for discharge and close follow-up Treatments: Fluids Re-evaluations: Patient feels significant improvement, at baseline in his requesting discharge. His orthostatics have normalized and he is ambulatory in the department Discussion: Patient with weakness this morning, generalized, no focal complaints. Patient with dry mucous membranes and poor skin turgor with a bump in his creatinine. There is no evidence of an obstructive uropathy and significant improvement after fluids. Repeat labs demonstrate improvement in creatinine though not back to his baseline. It is noted that there is a slight elevation of his troponin which is in the low indeterminate range but unchanged over the course of the visit likely related to renal function and BNP. It is noted that he has an elevated BNP but there is no evidence of acute failure, no orthopnea or exertional dyspnea, no findings chest x-ray, no hypoxemia, no crackles in the lungs. Discussed with kiosk sales representative primary care provider and we sure the opinion that patient is appropriate for discharge and close follow-up Disposition: see below, along with detailed discharge instructions that have been reviewed with patient as well as indications for ED re-evaluation and additional outpatient follow up Discharge Plan Departure Patient Disposition: Home Clinical Impression: Acute dehydration, Acute kidney injury Instructions: DI for Dehydration -- Adult Activity Restrictions/Additional Instructions: *You have been diagnosed with [weakness due to dehydration. As we discussed your history and physical exam are otherwise very reassuring and there is no indication of any large underlying infection, heart attack or other concerning diagnosis that would require a specific or immediate intervention] *What to do: *Please continue to take your regular medications as directed. [ ] New medication prescriptions sent to your pharmacy: [ ] [ ] New medication written as a paper prescription [ ] No new medications given *Please follow up with your primary care provider in 2-3 days, call for an appointment. Let them know you were seen in the Emergency Department and that we ask that you be seen in follow up. We will electronically transmit a record of today's note if your PCP is in our system *Return to Emergency Department if you should have any new, worsening or concerning symptoms, such as [fever greater than 101 F, shaking chills, worsening pain, persistent vomiting or other bothersome symptoms] Prescriptions: No Action (DME) Glucose: Test Strips See Rx Instructions .Route .MEDSUPPLY Qty: 1 Patient Comments: Use to test blood sugar once daily Rx Instructions: Use to check blood sugar daily. PER PATIENT, CURRENTLY NOT USING 06/20/21 dutasteride [Avodart] 0.5 MG capsule 0.5 mg PO QDAY Qty: 0 omega 9-mvt-joe-fish oil [Fish Oil] 1,000 mg (120 mg-180 mg) capsule 2 cap PO Q DAY Qty: 0 Patient Comments: patient states he thinks dose is 500 mg levothyroxine [Synthroid] 125 mcg tablet 125 mcg PO DAILY Qty: 90 2RF atorvastatin 40 mg tablet 40 mg PO QPM Qty: 90 2RF Veltassa 8.4 gram powder in packet 16.8 gram PO DAILY losartan 50 mg tablet 50 mg PO DAILY Glucosamine Sulfate 1,000 mg PO DAILY Metamucil (sugar) Powder 1 tbsp PO DAILY tamsulosin [Flomax] 0.4 mg capsule 0.4 mg PO BID aspirin [Adult Low Dose Aspirin] 81 mg tablet,delayed release (DR/EC) 81 mg PO DAILY metformin 500 mg tablet 500 mg PO BID Qty: 180 3RF metoprolol succinate 25 mg tablet extended release 24 hr 25 mg PO BID ascorbic acid (vitamin C) [Vitamin C] 500 mg Tablet 500 mg PO DAILY Referrals: Jomar Rodney MD [Primary Care Provider] - Stand Alone Forms: Patient Portal/API
[2023-09-08] MEDS: SODIUM CHLORIDE 0.9% 1,000 ML 150 ML IV (07:58)
[2023-09-08 08:07] LABS: Alanine Aminotransferase 70 IU/L (<50); Albumin 4.2 g/dL (3.5-5.0); Albumin Globulin Ratio 1.4 (1.0-2.8); Alkaline Phosphatase 72 U/L (38-126); Aspartate Aminotransferase 107 IU/L (17-59); BUN Creatinine Ratio 21.3 (6-22); Bilirubin Total 0.7 mg/dL (0.2-1.3); Blood Urea Nitrogen 38 mg/dL (9-20); Calcium 10.9 mg/dL (8.4-10.2); Carbon Dioxide 21 mmol/L (22-32); Chloride 103 mmol/L (98-107); Creatine Kinase 775 U/L (55-170); Estimated Glomerular Filt Rate 37 mL/min (>60); Globulin 3.1 g/dL (1.7-4.1); Glucose 164 mg/dL (80-110); HEMOLYSIS < 15 (0-50); Lipase 128 U/L (23-300); Potassium 4.6 mmol/L (3.4-5.1); Sodium 135 mmol/L (137-145); Total Protein 7.3 g/dL (6.3-8.2)
[2023-09-08 08:15] LABS: NT-proBNP (BNP-Adult 18+) 2590 pg/mL (<450)
[2023-09-08 08:18] LABS: Troponin I 0.041 ng/mL (0.01-0.034)
[2023-09-08 08:22] LABS: Procalcitonin 0.07 ng/mL (<0.5)
--- NOTE | 2023-09-08 08:45 | DI.US.S_ITS ---
PROCEDURE: US RENAL COMPLETE INDICATIONS: BLAKE; POSSIBLE OBSTRUCTION TECHNIQUE: Real-time scanning was performed of the kidneys and bladder, with image documentation. COMPARISON: None. FINDINGS: Kidneys: Kidneys are normal in size. Right kidney measures 11.8 cm long; left kidney measures 10.8 cm long. Right renal cortical thickness is 1.6 cm; left renal cortical thickness is 1.3 cm. Renal cortical echotexture is normal. No hydronephrosis or nephrolithiasis. No suspicious solid mass lesions. Bladder: Bladder was empty during the study. Miscellaneous: No free pelvic fluid. IMPRESSION: Normal size kidneys with no evidence of hydronephrosis. Dictated by: Bret Betancourt M.D. on 09/08/2023 at 8:54 Approved by: Bret Betancourt M.D. on 09/08/2023 at 8:56
[2023-09-08 08:46] LABS: Influenza A - CEPHEID Flu A NEGATIVE (NEGATIVE); Influenza B - CEPHEID Flu B NEGATIVE (NEGATIVE); Respiratory Syncytial Virus Negative (Negative)
[2023-09-08 08:48] LABS: COVID-19 CEPHEID 4-PLEX PCR Negative (Negative)
[2023-09-08] MEDS: SODIUM CHLORIDE 0.9% 500 ML 1000 ML IV (10:09)
[2023-09-08 11:20] LABS: BUN Creatinine Ratio 27.1 (6-22); Blood Urea Nitrogen 38 mg/dL (9-20); Calcium 10.2 mg/dL (8.4-10.2); Carbon Dioxide 24 mmol/L (22-32); Chloride 105 mmol/L (98-107); Creatine Kinase 736 U/L (55-170); Estimated Glomerular Filt Rate 50 mL/min (>60); Glucose 84 mg/dL (80-110); HEMOLYSIS 46 (0-50); Potassium 4.6 mmol/L (3.4-5.1); Sodium 134 mmol/L (137-145)
[2023-09-08 11:32] LABS: Troponin I 0.043 ng/mL (0.01-0.034)
[2023-09-08 11:35] LABS: Creatinine Urine Random 97.9 mg/dL; Sodium Urine Random 130 mmol/L (30-90)
== END 2023-09-08 12:45 | disposition home or self-care (01) ==
PROVIDERS: Emergency Provider Emergency Medicine; PCP Internal Medicine
DX: E86.0 Dehydration (principal); N17.9 Acute kidney failure, unspecified; I10 Essential (primary) hypertension; I48.91 Unspecified atrial fibrillation; E11.9 Type 2 diabetes mellitus without complications; Z79.84 Long term (current) use of oral hypoglycemic drugs; Z95.1 Presence of aortocoronary bypass graft
CPT/HCPCS: 0241U; 36415; 71045; 76770; 80048; 80053; 82550; 82570; 83690; 83880; 84145; 84300; 84484; 85025; 93005; 96360; 96361; 99284

== ENCOUNTER → 2023-09-09 16:26 | Outpatient (CLI) | payer MEDICARE, OTHER, SELFPAY ==
[2023-09-09 18:29] LABS: Thyroid Stimulating Hormone 212 uIU/mL (0.47-4.68)
== END ==
PROVIDERS: PCP Internal Medicine; Visit Provider Internal Medicine
DX: E03.9 Hypothyroidism, unspecified (principal)
CPT/HCPCS: 84443

== ENCOUNTER → 2023-11-19 07:03 | Outpatient (CLI) | payer MEDICARE, OTHER, SELFPAY ==
[2023-11-19 08:39] LABS: Hemoglobin A1C% w Est Avg Glu 6.1 % (4.0-6.0)
[2023-11-19 09:06] LABS: Alanine Aminotransferase 22 IU/L (<50); Albumin 4.1 g/dL (3.5-5.0); Albumin Globulin Ratio 1.5 (1.0-2.8); Alkaline Phosphatase 67 U/L (38-126); Aspartate Aminotransferase 31 IU/L (17-59); Bilirubin Total 0.9 mg/dL (0.2-1.3); Blood Urea Nitrogen 35 mg/dL (9-20); Carbon Dioxide 20 mmol/L (22-32); Chloride 107 mmol/L (98-107); Cholesterol 127 mg/dL (140-199); Estimated Glomerular Filt Rate > 60 mL/min (>60); Globulin 2.8 g/dL (1.7-4.1); Glucose 102 mg/dL (80-110); HDL Cholesterol 43 mg/dL (40-60); HEMOLYSIS 21 (0-50); LDL Cholesterol Calculated 54 mg/dL (<100); Potassium 5.3 mmol/L (3.4-5.1); Sodium 137 mmol/L (137-145); Total Protein 6.9 g/dL (6.3-8.2); Triglycerides 151 mg/dL (35-150)
[2023-11-19 09:17] LABS: Creatinine Urine Random 146.4 mg/dL
[2023-11-19 09:19] LABS: Free T4, Direct Thyroxine 1.01 ng/dL (0.78-2.19)
[2023-11-19 09:33] LABS: Thyroid Stimulating Hormone 3.86 uIU/mL (0.47-4.68)
[2023-11-19 10:14] LABS: Microalbumi Creatinin Ratio Ur 496.5 ug/mg CR (<30); Microalbumin Urine Random 72.7 mg/dL (0-1.6)
[2023-11-23 06:36] LABS: Calcium 9.7 mg/dL (8.6-10.2); Parathyroid Hormone, Intact 19 pg/mL (15-65)
== END ==
PROVIDERS: PCP Internal Medicine; Referring Provider Student in an Organized Health Care Education/Training Program; Visit Provider Student in an Organized Health Care Education/Training Program
DX: N05.9 Unspecified nephritic syndrome with unspecified morphologic changes (principal); E11.9 Type 2 diabetes mellitus without complications; D70.9 Neutropenia, unspecified; D63.1 Anemia in chronic kidney disease; R80.9 Proteinuria, unspecified; I10 Essential (primary) hypertension; E78.2 Mixed hyperlipidemia; E03.9 Hypothyroidism, unspecified
CPT/HCPCS: 80053; 80061; 82043; 82310; 82570; 83036; 83970; 84439; 84443

== ENCOUNTER → 2023-11-25 05:59 | Outpatient (CLI) | payer MEDICARE, OTHER, SELFPAY ==
[2023-11-25 08:23] LABS: HEMOLYSIS 28 (0-50)
[2023-11-25 08:31] LABS: Potassium 5.7 mmol/L (3.4-5.1)
== END ==
PROVIDERS: PCP Internal Medicine; Referring Provider Student in an Organized Health Care Education/Training Program; Visit Provider Student in an Organized Health Care Education/Training Program
DX: E87.5 Hyperkalemia (principal)
CPT/HCPCS: 36415; 84132

== ENCOUNTER → 2023-12-29 07:00 | Outpatient (CLI) | payer MEDICARE, OTHER, SELFPAY ==
[2023-12-29 08:11] LABS: BUN Creatinine Ratio 33.1 (6-22); Blood Urea Nitrogen 45 mg/dL (9-20); Carbon Dioxide 23 mmol/L (22-32); Chloride 112 mmol/L (98-107); Estimated Glomerular Filt Rate 51 mL/min (>60); Glucose 106 mg/dL (80-110); HEMOLYSIS < 15 (0-50); Sodium 140 mmol/L (137-145)
[2023-12-29 09:45] LABS: Creatinine Urine Random 97.2 mg/dL; Protein (Total) Urine Random 62 mg/dL (0-12); Protein Creatinine Ratio Urine 0.63 GRAM/24H
== END ==
PROVIDERS: PCP Internal Medicine; Referring Provider Student in an Organized Health Care Education/Training Program; Visit Provider Student in an Organized Health Care Education/Training Program
DX: N05.9 Unspecified nephritic syndrome with unspecified morphologic changes (principal); R80.9 Proteinuria, unspecified
CPT/HCPCS: 36415; 80048; 82570; 84156

== ENCOUNTER → 2024-02-02 12:28 | Outpatient (CLI) | payer MEDICARE, OTHER, SELFPAY ==
[2024-02-02 13:00] LABS: Hematocrit 44.6 % (41-53); Hemoglobin 14.6 g/dL (13.5-17.5)
[2024-02-02 13:24] LABS: BUN Creatinine Ratio 27.3 (6-22); Blood Urea Nitrogen 33 mg/dL (9-20); Carbon Dioxide 23 mmol/L (22-32); Chloride 108 mmol/L (98-107); Estimated Glomerular Filt Rate 59 mL/min (>60); Glucose 107 mg/dL (80-110); HEMOLYSIS < 15 (0-50); Potassium 5.1 mmol/L (3.4-5.1); Sodium 138 mmol/L (137-145)
[2024-02-02 16:58] LABS: Creatinine Urine Random 120.1 mg/dL; Protein (Total) Urine Random 125 mg/dL (0-12); Protein Creatinine Ratio Urine 1.04 GRAM/24H
[2024-02-04 09:58] LABS: Parathyroid Hormone Int 31 pg/mL (15-65)
== END ==
PROVIDERS: PCP Internal Medicine; Referring Provider Student in an Organized Health Care Education/Training Program; Visit Provider Student in an Organized Health Care Education/Training Program
DX: N05.9 Unspecified nephritic syndrome with unspecified morphologic changes (principal); D70.9 Neutropenia, unspecified; D63.1 Anemia in chronic kidney disease; N25.81 Secondary hyperparathyroidism of renal origin; R80.9 Proteinuria, unspecified
CPT/HCPCS: 36415; 80048; 82570; 83970; 84156; 85014; 85018

== ENCOUNTER 2024-03-21 08:36 | Observation (INO) | payer MEDICARE, OTHER, SELFPAY ==
[2024-03-21] VITALS (12 sets, daily range): BP systolic 104–165; BP diastolic 58–94; PULSE 62–100; RESP 15–21; TEMP 36.1–36.6; O2SAT 91–100; BMI 26.7
--- NOTE | 2024-03-21 | PATH_ITS ---
[facility] Accession Number: [id number] No. of containers..01 Tissue . 01 Material submitted: . esophagus - ESOPHAGEAL MATERIAL . 01 Diagnosis: A. ESOPAGEAL MATERIAL, REMOVAL: Fragments of skeletal muscle and vegetable matter, consistent with food material. Mucous with scant inflammatory debris and bacterial colonies. Scant strips of squamous cells within normal limits. MRV 03/27/2024 1456 Local . 01 Electronically signed: . Venita Matthews MD, Pathologist NPI- [id number] . 01 Gross description: . Received in formalin with two identifiers and esophageal material, are multiple fragments of pink to giang food material consistent with meat aggregating to 3.2 x 1.6 x 0.6 cm. Smaller soft tissue fragments cannot be excluded. Candy Puller fragments are submitted in cassette A1. ([id number]) /ANDREINA 03/22/2024 0921 Local . 01 Pathologist provided ICD-10: K22.89 . 01 CPT . 746847 Specimen Comment: A courtesy copy of this report has been sent to [phone] Performed at: [address] [id number] MD Keaton Cheung MD Phone: [phone]
--- NOTE | 2024-03-21 08:49 | ED.GENADULT ---
HPI - General Adult General Chief complaint: Skin/Abscess/Foreign Body Stated complaint: can't keep anything down Time Seen by Provider: 03/21/24 08:40 History of Present Illness HPI narrative: 84-year-old male presents for difficulty swallowing since last night. Patient reports chronic ?swallowing issues? for many many years now, he states that he was to take small bites and she was food thoroughly to make sure that things go down. Last night he was eating chicken and felt it get stuck. He states that he was able to swallow saliva, but then ?it fills up? and he vomits. He states that he has had food gets stuck in the past but can not remember what he did to fix the issue at home. He states he has never had an endoscopy or had to go to the emergency department for this complaint. Related Data Home Medications Medication Instructions Recorded Confirmed dutasteride 0.5 mg capsule 0.5 mg PO QDAY ##0 01/26/11 03/21/24 (Avodart) ascorbic acid (vitamin C) 500 mg 500 mg PO DAILY 04/26/18 12/14/23 tablet (Vitamin C) psyllium seed (sugar) oral powder 1 tbsp PO DAILY 04/01/20 12/14/23 (Metamucil (sugar) oral powder) Glucosamine Sulfate 1,000 mg PO DAILY 06/21/20 12/14/23 patiromer calcium sorbitex 8.4 16.8 gram PO DAILY 06/21/20 12/14/23 gram oral powder packet (Veltassa) losartan 50 mg tablet 50 mg PO DAILY 12/27/20 03/21/24 omega 3-sqn-fsl-fish oil 1,000 mg 2 cap PO Q DAY #0 caps 12/27/20 12/14/23 (120 mg-180 mg) capsule (Fish Oil) tamsulosin 0.4 mg capsule (Flomax) 0.4 mg PO BID enlarged prostate 12/27/20 12/14/23 Glucose: Test Strips #1 ea 06/20/21 12/14/23 aspirin 81 mg tablet,delayed 81 mg PO DAILY 06/18/22 03/21/24 release (Adult Low Dose Aspirin) empagliflozin 10 mg tablet 10 mg PO DAILY 12/14/23 12/14/23 (Jardiance) Previous Rx's Medication Instructions Recorded metformin 500 mg tablet 500 mg PO BID #180 tabs 06/15/23 levothyroxine 125 mcg tablet 125 mcg PO DAILY #90 tabs 09/10/23 (Synthroid) metoprolol succinate 25 mg 50 mg (2 x 25 mg) PO DAILY #180 09/16/23 tablet,extended release 24 hr tabs atorvastatin 40 mg tablet 40 mg PO QPM #90 tabs 01/19/24 Allergies Allergy/AdvReac Type Severity Reaction Status Date / Time No Known Drug Allergies Allergy Verified 03/21/24 12:10 Patient History Medical History Type 2 diabetes with nephropathy Presence of Watchman left atrial appendage closure device (~12/2020) Elevated PSA Chronic renal failure, stage 2 (mild) Chronic a-fib Coronary artery disease Hyperlipemia Hypothyroidism Diverticular disease BPH (benign prostatic hyperplasia) GI bleed HTN (hypertension) Surgical History S/P CABG x 2 (03/25/09) Status post coronary artery bypass graft History of tonsillectomy Status post colectomy Family History Father Heart disease Mother Obesity Hypertension Diabetes mellitus Social History household members: spouse Smoking Status: Never smoker alcohol intake: former Smoking Status: Never smoker Substance Use Type: does not use Exam Narrative Exam Narrative: Const: Awake, alert, no acute distress, nontoxic appearing Cardiac: regular rate, regular rhythm RESP: unlabored, clear bilaterally, no wheezing GI: Soft, nontender, nondistended, no rebound, no guarding Skin: Warm, Dry, intact, no rashes Neuro: AO x3, CN II-XII grossly intact, moves all extremities Initial Vital Signs Initial Vital Signs: Vital Signs Temperature 96.9 F L 03/21/24 08:37 Pulse Rate 100 H 03/21/24 08:37 Respiratory Rate 16 03/21/24 08:37 Blood Pressure 165/81 H 03/21/24 08:37 Pulse Oximetry 98 03/21/24 08:37 Oxygen Delivery Method Room Air 03/21/24 08:37 Course Orders Ordered: Discontinued Medications Fentanyl (Fentanyl 100 Mcg/2 Ml Inj) 0 mcg IV Q5MIN PRN PRN Reason: Pain, Severe (7-10) Glucagon (Glucagon,Human Recombinant 1 Mg/Ml Vial) 2 mg IV NOW ONE Stop: 03/21/24 08:44 Last Admin: 03/21/24 08:59 Dose: 2 mg Documented By: Lactated Ringer's (Lactated Ringers) 1,000 mls @ 42 mls/hr IV CONT REYNALDO Last Infusion: 03/21/24 13:14 Dose: Infused Documented By: Admin: 03/21/24 11:10 Dose: 42 mls/hr Documented By: IDANIA Lactated Ringer's (Lactated Ringers) 1,000 mls @ 120 mls/hr IV CONT [facility] Meperidine HCl (Meperidine 50 Mg/Ml Inj) 12.5 mg IV PACUNOW PRN PRN Reason: Mild pain or shivering Nitroglycerin (Nitroglycerin 0.4 Mg Sl Tab) 0.4 mg SL NOW ONE Stop: 03/21/24 08:44 Last Admin: 03/21/24 08:59 Dose: 0.4 mg Documented By: Ondansetron HCl (Ondansetron 4 Mg/2 Ml Inj) 4 mg IV NOW PRN PRN Reason: Nausea And Vomiting Vital Signs Vital signs: Vital Signs - 8 hr 03/21/24 08:37 03/21/24 09:00 03/21/24 09:15 Temperature 96.9 F L Pulse Rate 100 H 68 Respiratory Rate 16 Blood Pressure 165/81 H 131/60 Pulse Oximetry 98 100 Oxygen Delivery Method Room Air 03/21/24 09:15 03/21/24 09:30 03/21/24 09:30 Temperature Pulse Rate 67 67 Respiratory Rate Blood Pressure 128/94 H Pulse Oximetry 100 100 Oxygen Delivery Method Medical Decision Making Differential Diagnosis Differential Diagnosis: Food bolus, esophageal stricture, esophageal mass Lab Data 03/21/24 08:55 03/21/24 08:55 Labs: Lab Results 03/21/24 Range/Units 08:55 WBC 8.8 (4.5-11.0) X10^3/uL RBC 4.57 (4.5-5.9) X10^6/uL Hgb 14.8 (13.5-17.5) g/dL Hct 44.8 (41-53) % MCV 97.9 (80-100) fL MCH 32.3 (26-34) PG MCHC 33.0 (30-36) % RDW 14.1 (11.6-14.8) % Plt Count 156 (150-400) X10^3/uL Neut % (Auto) 76.6 H (50-75) % Lymph % (Auto) 13.2 L (25-40) % [place] % (Auto) 5.4 (3-14) % Eos % (Auto) 4.3 H (2-4) % Baso % (Auto) 0.5 (0-2) % Neut # (Auto) 6700 (1855-0740) /uL Lymph # (Auto) 1200 (8656-8027) /uL [place] # (Auto) 500 (0-900) /uL Eos # (Auto) 400 (0-450) /uL Baso # (Auto) 0 (0-100) /uL Sodium 140 (137-145) mmol/L Potassium 4.7 (3.4-5.1) mmol/L Chloride 113 H (98-107) mmol/L Carbon Dioxide 22 (22-32) mmol/L BUN 39 H (9-20) mg/dL Creatinine 1.32 H (0.66-1.25) mg/dL Estimated GFR 53 L (>60) mL/min BUN/Creatinine Ratio 29.5 H (6-22) Glucose 110 (80-110) mg/dL Calcium 9.7 (8.4-10.2) mg/dL Total Bilirubin 1.0 (0.2-1.3) mg/dL AST 31 (17-59) IU/L ALT 20 (<50) IU/L Alkaline Phosphatase 63 (38-126) U/L Total Protein 7.5 (6.3-8.2) g/dL Albumin 4.4 (3.5-5.0) g/dL Globulin 3.1 (1.7-4.1) g/dL Albumin/Globulin Ratio 1.4 (1.0-2.8) MDM Narrative Medical decision making narrative: Likely food bolus after eating chicken last night. Unable to tolerate even his saliva. 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 Never had an endoscopy. We will try glucagon and nitroglycerin. Patient unable to tolerate annie herlinda despite administration of glucagon and nitroglycerin. Discussed case with Dr. Clay of General surgery, who will reach out to Dr. Cat who is performing scopes today to see if we can place patient on schedule. Patient able to be added onto OR schedule for EGD. Patient in agreement with plan. Discharge Plan Departure Patient Disposition: Admitted as Observation Clinical Impression: Food bolus obstruction of intestine Admit Date/Time: 03/21/24 10:23 Admit Provider: Marc Clay
--- NOTE | 2024-03-21 08:51 | DI.RAD.S_ITS ---
PROCEDURE: XR CHEST 1V INDICATIONS: food bolus TECHNIQUE: One view of the chest was acquired. COMPARISON: [facility], , XR CHEST 1V, 09/08/2023, 7:45. FINDINGS: Surgical changes and devices: Prior CABG procedure. Lungs and pleura: Lungs are clear. No pleural effusions or pneumothorax. Mediastinum: Mediastinal contours appear normal. Heart is enlarged. Bones and chest wall: No suspicious bony lesions. Overlying soft tissues appear unremarkable. IMPRESSION: No acute cardiopulmonary abnormality is seen. Dictated by: Anahy Bose MD, PhD on 03/21/2024 at 9:22 Approved by: Anahy Bose MD, PhD on 03/21/2024 at 9:23
[2024-03-21] MEDS: GLUCAGON,HUMAN RECOMBINANT 1 MG/ML VIAL 2 MG IV (08:59)
[2024-03-21] MEDS: NITROGLYCERIN 0.4 MG SL TAB SL (08:59)
[2024-03-21 09:03] LABS: Add Manual Diff / Slide Review NO; Basophils Absolute Auto 0 /uL (0-100); Basophils Percent Auto 0.5 % (0-2); Eosinophils Absolute Auto 400 /uL (0-450); Eosinophils Percent Auto 4.3 % (2-4); Hematocrit 44.8 % (41-53); Hemoglobin 14.8 g/dL (13.5-17.5); Lymphocytes Absolute Auto 1200 /uL (1100-4500); Lymphocytes Percent Auto 13.2 % (25-40); Mean Corpuscular Hemoglobin 32.3 PG (26-34); Mean Corpuscular Volume 97.9 fL (80-100); Monocytes Absolute Auto 500 /uL (0-900); Monocytes Percent Auto 5.4 % (3-14); Neutrophils Absolute Auto 6700 /uL (1500-7000); Neutrophils Percent Auto 76.6 % (50-75); Platelet Count 156 X10^3/uL (150-400); Red Blood Cell Count 4.57 X10^6/uL (4.5-5.9); Red Cell Distribution Width 14.1 % (11.6-14.8); White Blood Cell Count 8.8 X10^3/uL (4.5-11.0)
[2024-03-21 09:19] LABS: Alanine Aminotransferase 20 IU/L (<50); Albumin 4.4 g/dL (3.5-5.0); Albumin Globulin Ratio 1.4 (1.0-2.8); Alkaline Phosphatase 63 U/L (38-126); Aspartate Aminotransferase 31 IU/L (17-59); BUN Creatinine Ratio 29.5 (6-22); Blood Urea Nitrogen 39 mg/dL (9-20); Calcium 9.7 mg/dL (8.4-10.2); Carbon Dioxide 22 mmol/L (22-32); Chloride 113 mmol/L (98-107); Estimated Glomerular Filt Rate 53 mL/min (>60); Globulin 3.1 g/dL (1.7-4.1); Glucose 110 mg/dL (80-110); HEMOLYSIS 49 (0-50); Potassium 4.7 mmol/L (3.4-5.1); Sodium 140 mmol/L (137-145); Total Protein 7.5 g/dL (6.3-8.2)
[2024-03-21] MEDS: LACTATED RINGERS 1,000 ML 42 ML IV (11:10)
--- NOTE | 2024-03-21 11:40 | P.HP_ITS ---
History of Present Illness History of Present Illness Date Patient Seen: 03/21/24 Time Patient Seen: 11:40 Chief complaint: can't keep anything down Narrative: Joni is an 84-year-old man who presents to the ER after eating some chicken last night that passed. He can not swallow his secretions. He has had problems swallowing for many years but he has not had to come into the ER and have an EGD for food impaction before. He has never had an EGD before. PENDING SALE TO [facility] Medical History Type 2 diabetes with nephropathy Presence of Watchman left atrial appendage closure device (~12/2020) Elevated PSA Chronic renal failure, stage 2 (mild) Chronic a-fib Coronary artery disease Hyperlipemia Hypothyroidism Diverticular disease BPH (benign prostatic hyperplasia) GI bleed HTN (hypertension) Surgical History S/P CABG x 2 (03/25/09) Status post coronary artery bypass graft History of tonsillectomy Status post colectomy Family History Father Heart disease Mother Obesity Hypertension Diabetes mellitus Social History household members: spouse Smoking Status: Never smoker alcohol intake: former Meds Home Medications and Allergies Home Medications Medication Instructions Recorded Confirmed Type dutasteride 0.5 mg capsule 0.5 mg PO QDAY ##0 01/26/11 03/21/24 History (Avodart) ascorbic acid (vitamin C) 500 mg 500 mg PO DAILY 04/26/18 12/14/23 History tablet (Vitamin C) psyllium seed (sugar) oral powder 1 tbsp PO DAILY 04/01/20 12/14/23 History (Metamucil (sugar) oral powder) Glucosamine Sulfate 1,000 mg PO DAILY 06/21/20 12/14/23 History patiromer calcium sorbitex 8.4 16.8 gram PO DAILY 06/21/20 12/14/23 History gram oral powder packet (Veltassa) losartan 50 mg tablet 50 mg PO DAILY 12/27/20 03/21/24 History omega 3-lzv-loc-fish oil 1,000 mg 2 cap PO Q DAY #0 caps 12/27/20 12/14/23 History (120 mg-180 mg) capsule (Fish Oil) tamsulosin 0.4 mg capsule (Flomax) 0.4 mg PO BID enlarged prostate 12/27/20 12/14/23 History Glucose: Test Strips #1 ea 06/20/21 12/14/23 History aspirin 81 mg tablet,delayed 81 mg PO DAILY 06/18/22 03/21/24 History release (Adult Low Dose Aspirin) metformin 500 mg tablet 500 mg PO BID #180 tabs 06/15/23 03/21/24 Rx levothyroxine 125 mcg tablet 125 mcg PO DAILY #90 tabs 09/10/23 03/21/24 Rx (Synthroid) metoprolol succinate 25 mg 50 mg (2 x 25 mg) PO DAILY #180 09/16/23 03/21/24 Rx tablet,extended release 24 hr tabs empagliflozin 10 mg tablet 10 mg PO DAILY 12/14/23 12/14/23 History (Jardiance) atorvastatin 40 mg tablet 40 mg PO QPM #90 tabs 01/19/24 03/21/24 Rx Allergies Allergy/AdvReac Type Severity Reaction Status Date / Time No Known Drug Allergies Allergy Verified 03/21/24 10:35 Exam Vital Signs (past 8 hours): - 03/21/24 08:37 03/21/24 09:00 03/21/24 09:15 Temperature 96.9 F L Pulse Rate 100 H 68 Respiratory Rate 16 Blood Pressure 165/81 H 131/60 Pulse Oximetry 98 100 Oxygen Delivery Method Room Air 03/21/24 09:15 03/21/24 09:30 03/21/24 09:30 Temperature Pulse Rate 67 67 Respiratory Rate Blood Pressure 128/94 H Pulse Oximetry 100 100 Oxygen Delivery Method 03/21/24 09:45 03/21/24 09:45 03/21/24 10:00 Temperature Pulse Rate 62 Respiratory Rate Blood Pressure 127/77 131/59 L Pulse Oximetry 100 Oxygen Delivery Method 03/21/24 10:00 03/21/24 10:15 03/21/24 10:15 Temperature Pulse Rate 69 65 Respiratory Rate Blood Pressure 124/58 L Pulse Oximetry 100 100 Oxygen Delivery Method Oxygen Delivery Method Room Air Const General: No acute distress Resp Effort & Inspection: normal respiratory effort GI Palpation: soft Objective Labs 03/21/24 08:55 03/21/24 08:55 Labs: Laboratory Results - last 24 hr 03/21/24 08:55 WBC 8.8 RBC 4.57 Hgb 14.8 Hct 44.8 MCV 97.9 MCH 32.3 MCHC 33.0 RDW 14.1 Plt Count 156 Neut % (Auto) 76.6 H Lymph % (Auto) 13.2 L [place] % (Auto) 5.4 Eos % (Auto) 4.3 H Baso % (Auto) 0.5 Neut # (Auto) 6700 Lymph # (Auto) 1200 [place] # (Auto) 500 Eos # (Auto) 400 Baso # (Auto) 0 Sodium 140 Potassium 4.7 Chloride 113 H Carbon Dioxide 22 BUN 39 H Creatinine 1.32 H Estimated GFR 53 L BUN/Creatinine Ratio 29.5 H Glucose 110 Calcium 9.7 Total Bilirubin 1.0 AST 31 ALT 20 Alkaline Phosphatase 63 Total Protein 7.5 Albumin 4.4 Globulin 3.1 Albumin/Globulin Ratio 1.4 Assessment & Plan Assessment and plan (1) Food bolus obstruction of intestine: Status: Acute Plan We discussed that pros and cons of esophagogastroduodenoscopy for an esophageal food impaction and he would like to proceed.
--- NOTE | 2024-03-21 12:56 | PM.OP.EGD ---
Operative Date/Time/Diagnoses Date of procedure: 03/21/24 Time of procedure: 12:56 Pre-op diagnosis: Esophageal food impaction Post-op diagnosis: same Procedure & Clinicians Study performed: Esophagogastroduodenoscopy Same procedure as scheduled: Yes Surgeon: Marc Clay Procedure Notes Procedure in detail: Surgeon: Marc Clay MD Anesthesia: Mari Gallegos MD A timeout was performed. A bite blocked was placed. The patient was positioned in the left lateral decubitus position. Anesthesia was administered. The endoscope was inserted into the esophagus. There appeared to be a food bolus impacted in the distal esophagus. Initially there was concern that there could be malignant tissue because there were some rather red tissue in the food bolus. Some of this was suctioned into a trap for analysis. The scope was able to be passed alongside the food bolus and into the stomach. Retroflexion demonstrated no abnormalities and the majority of food bolus was seen free in the stomach. An additional portion of the bright red tissue was removed with a Reed net. The scope was reinserted into the esophagus. No bleeding was noted. The mucosa was quite friable where the bolus had been impacted that there was no obviously malignant tissue seen. Externally the tissue was examined and it appeared that it might be pork which is artificially colored red at the edges as might be found in [place]ri[place] food. The scope was withdrawn. The patient was awakened and brought to recovery. The tissue was sent in formalin to ensure there is no malignant tissue Sedation time: See the anesthesia records Findings: Food impaction resolved Post-procedure Disposition: PACU
== END 2024-03-21 13:13 | disposition home or self-care (01) ==
LOC: ED 10:16 → AC 10:24
PROVIDERS: Admitting Provider Surgery; Emergency Provider Emergency Medicine; PCP Internal Medicine; Visit Provider Surgery
PROC: 0DJ08ZZ Inspection of Upper Intestinal Tract, Via Natural or Artificial Opening Endoscopic (ICD-10-PCS; CPT 43247; principal; 2024-03-21 12:45)
DX: T18.128A Food in esophagus causing other injury, initial encounter (principal)
CPT/HCPCS: 43247; 36415; 71045; 80053; 85025; 96374; 99232; 99284; G0378; J0330; J1100; J1610; J2405; J2704

== ENCOUNTER 2024-04-12 07:07 | Emergency (ER) | payer MEDICARE, OTHER, SELFPAY ==
[2024-04-12] VITALS (13 sets, daily range): BP systolic 114–162; BP diastolic 58–87; PULSE 86–98; RESP 7–25; TEMP 36.9–37.6; O2SAT 94–98; BMI 26.6
--- NOTE | 2024-04-12 07:50 | DI.RAD.S_ITS ---
PROCEDURE: XR CHEST 1V INDICATIONS: chest pain TECHNIQUE: One view of the chest was acquired. COMPARISON: [facility], CR, XR CHEST 1V, 03/21/2024, 8:58. FINDINGS: Surgical changes and devices: Median sternotomy wires and surgical clips are seen. Lungs and pleura: There is mild pulmonary vascular congestion. No definite focal infiltrate. No pleural effusions or pneumothorax. Mediastinum: Mediastinal contours appear normal. Heart size is enlarged. Bones and chest wall: No suspicious bony lesions. Overlying soft tissues appear unremarkable. IMPRESSION: Cardiomegaly and mild congestion. No definite focal infiltrate. No pleural effusion or pneumothorax. Dictated by: Scott Collins M.D. on 04/12/2024 at 8:35 Approved by: Scott Collins M.D. on 04/12/2024 at 8:35
[2024-04-12 07:57] LABS: Add Manual Diff / Slide Review NO; Basophils Absolute Auto 100 /uL (0-100); Basophils Percent Auto 0.8 % (0-2); Eosinophils Absolute Auto 200 /uL (0-450); Eosinophils Percent Auto 2.2 % (2-4); Hematocrit 42.8 % (41-53); Hemoglobin 14.2 g/dL (13.5-17.5); Lymphocytes Absolute Auto 600 /uL (1100-4500); Mean Corpuscular HGB Conc 33.1 % (30-36); Mean Corpuscular Volume 96.6 fL (80-100); Monocytes Absolute Auto 1000 /uL (0-900); Monocytes Percent Auto 13.7 % (3-14); Neutrophils Absolute Auto 5400 /uL (1500-7000); Neutrophils Percent Auto 75.3 % (50-75); Platelet Count 133 X10^3/uL (150-400); Red Blood Cell Count 4.43 X10^6/uL (4.5-5.9); Red Cell Distribution Width 13.6 % (11.6-14.8); White Blood Cell Count 7.2 X10^3/uL (4.5-11.0)
[2024-04-12 08:02] LABS: Alanine Aminotransferase 19 IU/L (<50); Albumin 3.7 g/dL (3.5-5.0); Albumin Globulin Ratio 1.2 (1.0-2.8); Alkaline Phosphatase 50 U/L (38-126); Aspartate Aminotransferase 34 IU/L (17-59); BUN Creatinine Ratio 26.7 (6-22); Bilirubin Total 0.9 mg/dL (0.2-1.3); Blood Urea Nitrogen 32 mg/dL (9-20); Calcium 8.9 mg/dL (8.4-10.2); Carbon Dioxide 19 mmol/L (22-32); Chloride 112 mmol/L (98-107); Creatine Kinase 50 U/L (55-170); Estimated Glomerular Filt Rate 59 mL/min (>60); Glucose 100 mg/dL (80-110); Lipase 100 U/L (23-300); Sodium 136 mmol/L (137-145); Total Protein 6.7 g/dL (6.3-8.2)
[2024-04-12 08:03] LABS: HEMOLYSIS 82 (0-50)
[2024-04-12] MEDS: ACETAMINOPHEN 325 MG TABLET 975 MG PO (08:11)
[2024-04-12] MEDS: SODIUM CHLORIDE 0.9% 1,000 ML 1000 ML IV (08:11)
--- NOTE | 2024-04-12 08:18 | ED.BACK ---
HPI - Back Pain/Injury General Chief Complaint: Back Pain/Injury Stated Complaint: back pain Time Seen by Provider: 04/12/24 07:35 Source: patient History of Present Illness HPI Narrative: Patient is a 84-year-old history of chronic atrial fibrillation on aspirin daily chronic back pain diabetes presenting today with generalized weakness and worsening back pain. He reports that he thinks he is dehydrated it has been very hot the last couple of days. This morning he tried to get up and wishes very weak. He has thoracic back pain which he says isn't any worse than normal but it hurts every time he moves. It is long as he does not move it does not hurt. But when he tried to get up this morning he just felt very weak. He denies any sort of chest pain or palpitations. He has not sure what he normally takes for back pain. No abdominal pain nausea or vomiting Related Data Home Medications Medication Instructions Recorded Confirmed dutasteride 0.5 mg capsule 0.5 mg PO QDAY ##0 01/26/11 03/21/24 (Avodart) ascorbic acid (vitamin C) 500 mg 500 mg PO DAILY 04/26/18 12/14/23 tablet (Vitamin C) psyllium seed (sugar) oral powder 1 tbsp PO DAILY 04/01/20 12/14/23 (Metamucil (sugar) oral powder) Glucosamine Sulfate 1,000 mg PO DAILY 06/21/20 12/14/23 patiromer calcium sorbitex 8.4 16.8 gram PO DAILY 06/21/20 12/14/23 gram oral powder packet (Veltassa) losartan 50 mg tablet 50 mg PO DAILY 12/27/20 03/21/24 omega 0-hyc-dur-fish oil 1,000 mg 2 cap PO Q DAY #0 caps 12/27/20 12/14/23 (120 mg-180 mg) capsule (Fish Oil) tamsulosin 0.4 mg capsule (Flomax) 0.4 mg PO BID enlarged prostate 12/27/20 12/14/23 Glucose: Test Strips #1 ea 06/20/21 12/14/23 aspirin 81 mg tablet,delayed 81 mg PO DAILY 06/18/22 03/21/24 release (Adult Low Dose Aspirin) empagliflozin 10 mg tablet 10 mg PO DAILY 12/14/23 12/14/23 (Jardiance) Previous Rx's Medication Instructions Recorded metformin 500 mg tablet 500 mg PO BID #180 tabs 06/15/23 levothyroxine 125 mcg tablet 125 mcg PO DAILY #90 tabs 09/10/23 (Synthroid) metoprolol succinate 25 mg 50 mg (2 x 25 mg) PO DAILY #180 09/16/23 tablet,extended release 24 hr tabs atorvastatin 40 mg tablet 40 mg PO QPM #90 tabs 01/19/24 Allergies Allergy/AdvReac Type Severity Reaction Status Date / Time No Known Drug Allergies Allergy Verified 03/21/24 12:10 Patient History Medical History (Updated 04/12/24 @ 09:41 by Fernanda Vizcarra DO) 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 Presence of Watchman left atrial appendage closure device (~12/2020) Elevated PSA Chronic renal failure, stage 2 (mild) Chronic a-fib Coronary artery disease Hyperlipemia Hypothyroidism Diverticular disease BPH (benign prostatic hyperplasia) GI bleed HTN (hypertension) Surgical History S/P CABG x 2 (03/25/09) Status post coronary artery bypass graft History of tonsillectomy Status post colectomy Family History Father Heart disease Mother Obesity Hypertension Diabetes mellitus Social History household members: spouse Smoking Status: Never smoker alcohol intake: former Smoking Status: Never smoker Substance Use Type: does not use Exam Initial Vital Signs Initial Vital Signs: Vital Signs Pulse Rate 88 04/12/24 07:10 Pulse Oximetry 97 04/12/24 07:10 GENERAL: Alert 84-year-old male and in [no acute] distress. HEENT: Head atraumatic,EOMI, pupils reactive, face symmetric, [moist] mucous membranes CARDIOVASCULAR: Regular rate and rhythm without murmurs, rubs or gallops. RESPIRATORY: Breath sounds equal bilaterally, no wheezes rales or rhonchi. ABDOMEN: Soft, nontender. Normoactive bowel sounds all 4 quadrants. No guarding or rebound. BACK: Midthoracic pain EXTREMITIES: Normal range of motion, no clubbing or edema. Neurovascularly intact NEUROLOGICAL: Alert and oriented x4.Normal gait and speech. Cranial nerves II through XII grossly intact. Conveyancer strength equal bilaterally able to lift legs SKIN: Warm, dry, no laceration, no petechiae, no rashes or lesions. Course Orders Ordered: ED Orders 04/12/24 07:10 Complete Blood Count AUTO DIFF Stat Comprehensive Metabolic Panel Stat Lipase Stat Troponin & CK Cardiac Panel Stat 04/12/24 07:50 XR chest 1V Stat EKG-12 Lead Stat 04/12/24 09:46 Urine Microscopic Stat Discontinued Medications Acetaminophen (Acetaminophen 325 Mg Tablet) 975 mg PO NOW ONE Stop: 04/12/24 08:02 Last Admin: 04/12/24 08:11 Dose: 975 mg Documented By: RB Aspirin (Aspirin 81 Mg Chew Tab) 324 mg PO NOW ONE Stop: 04/12/24 07:51 Last Admin: 04/12/24 07:59 Dose: Not Given Documented By: RB Sodium Chloride (Normal Saline 0.9%) 1,000 mls @ 1,000 mls/hr IV BOLUS ONE Stop: 04/12/24 08:49 Last Infusion: 04/12/24 09:15 Dose: Infused Documented By: Admin: 04/12/24 08:11 Dose: 1,000 mls/hr Documented By: LIS Vital Signs Vital signs: Vital Signs - 8 hr 04/12/24 07:10 04/12/24 07:11 04/12/24 07:16 Temperature 99.6 F Pulse Rate 88 86 Respiratory Rate 18 Blood Pressure 129/87 129/87 Pulse Oximetry 97 96 Oxygen Delivery Method Room Air 04/12/24 07:30 04/12/24 07:30 04/12/24 08:00 Temperature Pulse Rate 88 88 Respiratory Rate 25 H 23 Blood Pressure 129/73 Pulse Oximetry 98 97 Oxygen Delivery Method 04/12/24 08:01 04/12/24 08:01 04/12/24 08:30 Temperature Pulse Rate 86 91 H Respiratory Rate 22 23 Blood Pressure 162/73 H Pulse Oximetry 95 95 Oxygen Delivery Method 04/12/24 08:30 04/12/24 09:00 04/12/24 09:00 Temperature Pulse Rate 88 Respiratory Rate 21 Blood Pressure 154/75 H 131/63 Pulse Oximetry 96 Oxygen Delivery Method 04/12/24 09:17 04/12/24 09:22 04/12/24 09:22 Temperature 98.4 F Pulse Rate 95 H Respiratory Rate 7 L Blood Pressure 140/80 Pulse Oximetry 95 Oxygen Delivery Method 04/12/24 09:25 04/12/24 09:30 04/12/24 09:30 Temperature Pulse Rate 98 H 98 H Respiratory Rate 22 Blood Pressure 139/63 Pulse Oximetry 96 94 Oxygen Delivery Method 04/12/24 10:00 04/12/24 10:00 Temperature Pulse Rate 88 Respiratory Rate 23 Blood Pressure 114/58 L Pulse Oximetry 95 Oxygen Delivery Method MDM - Back Pain/Injury Lab Data 04/12/24 07:10 04/12/24 07:10 Labs: Lab Results 04/12/24 04/12/24 Range/Units 07:10 09:46 WBC 7.2 (4.5-11.0) X10^3/uL RBC 4.43 L (4.5-5.9) X10^6/uL Hgb 14.2 (13.5-17.5) g/dL Hct 42.8 (41-53) % MCV 96.6 (80-100) fL MCH 32.0 (26-34) PG MCHC 33.1 (30-36) % RDW 13.6 (11.6-14.8) % Plt Count 133 L (150-400) X10^3/uL Neut % (Auto) 75.3 H (50-75) % Lymph % (Auto) 8.0 L (25-40) % Mccreary % (Auto) 13.7 (3-14) % Eos % (Auto) 2.2 (2-4) % Baso % (Auto) 0.8 (0-2) % Neut # (Auto) 5400 (2713-5618) /uL Lymph # (Auto) 600 L (6943-8279) /uL M[place]reary # (Auto) 1000 H (0-900) /uL Eos # (Auto) 200 (0-450) /uL Baso # (Auto) 100 (0-100) /uL Sodium 136 L (137-145) mmol/L Potassium 5.0 (3.4-5.1) mmol/L Chloride 112 H (98-107) mmol/L Carbon Dioxide 19 L (22-32) mmol/L BUN 32 H (9-20) mg/dL Creatinine 1.20 (0.66-1.25) mg/dL Estimated GFR 59 L (>60) mL/min BUN/Creatinine Ratio 26.7 H (6-22) Glucose 100 (80-110) mg/dL Calcium 8.9 (8.4-10.2) mg/dL Total Bilirubin 0.9 (0.2-1.3) mg/dL AST 34 (17-59) IU/L ALT 19 (<50) IU/L Alkaline Phosphatase 50 (38-126) U/L Total Creatine Kinase 50 L (55-170) U/L Troponin I 0.020 (0.01-0.034) ng/mL Total Protein 6.7 (6.3-8.2) g/dL Albumin 3.7 (3.5-5.0) g/dL Globulin 3.0 (1.7-4.1) g/dL Albumin/Globulin Ratio 1.2 (1.0-2.8) Lipase 100 (23-300) U/L Urine RBC None seen (0-5/HPF) Urine WBC None seen (0-5/HPF) Ur Squamous Epith Cells None seen (0-5/HPF) Urine Bacteria None seen (None) Ur Culture Indicated? Cult not indicated Vol Urine Centrifuged 10ml (spun) Urine Dip Bedside Urine Glucose 1000 mg/dl Bedside Urine Bilirubin - Negative Bedside Urine Ketone - Negative Urine Specific [place] 1.020 Bedside Urine Occult Blood - Negative Bedside Urine pH 5.0 Bedside Urine Protein + 30 Bedside Urine Urobilinogen - Negative Bedside Urine Nitrite - Negative Bedside Urine Leukocytes - Negative Esterase Imaging Data Chest x-ray: Radiologist's Impression: PROCEDURE: XR CHEST 1V INDICATIONS: chest pain TECHNIQUE: One view of the chest was acquired. COMPARISON: [facility], , XR CHEST 1V, 03/21/2024, 8:58. FINDINGS: Surgical changes and devices: Median sternotomy wires and surgical clips are seen. Lungs and pleura: There is mild pulmonary vascular congestion. No definite focal infiltrate. No pleural effusions or pneumothorax. Mediastinum: Mediastinal contours appear normal. Heart size is enlarged. Bones and chest wall: No suspicious bony lesions. Overlying soft tissues appear unremarkable. IMPRESSION: Cardiomegaly and mild congestion. No definite focal infiltrate. No pleural effusion or pneumothorax. Dictated by: Scott Collisn M.D. on 04/12/2024 at 8:35 Approved by: Scott Collins M.D. on 04/12/2024 at 8:35 ECG Data Attestation: I personally reviewed and interpreted this ECG as follows: Prior ECG tracings: available for review Interpretation: Atrial fibrillation rate 91 PVC noted no acute ischemia, previous EKGs shows atrial flutter without PVCs MDM Narrative Medical decision making narrative: Patient 84-year-old male with chronic back pain chronic atrial fibrillation presenting today with generalized weakness. He has no focal deficits on exam. Back pain is in the same place as it always is Blood work has been reviewed he has no leukocytosis no anemia CMP does show bicarb of 19 previously 22 he has a stable creatinine of 1.2 previously 1.3 other electrolytes stable glucose of 100, troponin is negative lipase 100 bilirubin 0.9 AST 34 ALT 18 alk-phos Chest x-ray does show some cardiomegaly with mild congestion EKG reviewed as above Patient was given a L of fluid and some Tylenol. He was overall feeling a lot better and able to ambulate. He has no nausea or vomiting. He is tolerating oral fluids. Encouraged him to go home with p.o. intake. He has no fever other evidence of infection. His POC urine is also negative. Discharge Plan Departure Patient Disposition: Home Clinical Impression: Weakness Instructions: Dehydration Activity Restrictions/Additional Instructions: *You have been diagnosed with dehydration *What to do: At this time blood work is overall reassuring recommend that you stay cool as best you can stay hydrated *Continue to take medications as directed Tylenol 650 mg every 4-6 hours if needed for back pain *Follow up with your primary care provider in 2-3 days or call [phone] *Return to ER if you should have increasing weakness dizziness pain confusion or any new, worsening or concerning symptoms Prescriptions: No Action (DME) Glucose: Test Strips See Rx Instructions .Route .MEDSUPPLY Qty: 1 Patient Comments: Use to test blood sugar once daily Rx Instructions: Use to check blood sugar daily. PER PATIENT, CURRENTLY NOT USING 06/20/21 Avodart 0.5 MG capsule 0.5 mg PO QDAY Qty: 0 omega 5-gsj-esg-fish oil [Fish Oil] 1,000 mg (120 mg-180 mg) capsule 2 cap PO Q DAY Qty: 0 Patient Comments: patient states he thinks dose is 500 mg levothyroxine [Synthroid] 125 mcg tablet 125 mcg PO DAILY Qty: 90 2RF atorvastatin 40 mg tablet 40 mg PO QPM Qty: 90 2RF Veltassa 8.4 gram powder in packet 16.8 gram PO DAILY losartan 50 mg tablet 50 mg PO DAILY Jardiance 10 mg tablet 10 mg PO DAILY metoprolol succinate 25 mg tablet extended release 24 hr 50 mg PO DAILY Qty: 180 3RF Glucosamine Sulfate 1,000 mg PO DAILY Metamucil (sugar) Powder 1 tbsp PO DAILY tamsulosin [Flomax] 0.4 mg capsule 0.4 mg PO BID aspirin [Adult Low Dose Aspirin] 81 mg tablet,delayed release (DR/EC) 81 mg PO DAILY metformin 500 mg tablet 500 mg PO BID Qty: 180 3RF ascorbic acid (vitamin C) [Vitamin C] 500 mg Tablet 500 mg PO DAILY Referrals: Jomar Rodney MD [Primary Care Provider] - Stand Alone Forms: Patient Portal/API
--- NOTE | 2024-04-12 08:52 | EKG_ITS ---
[place] [address] [address] [place] [id number] Test Date: 2024-04-12 Pat Name: Joni Montgomery Department: Room: Gender: Male Shipping Packer: ДМИТРИЙ : 1940 Requested By: Order Number: [id number] Reading MD: Jomar Rodney MD Measurements Intervals [place] Rate: 91 P: UT: QRS: -24 QRSD: 104 T: 4 QT: 376 QTc: 462 Interpretive Statements Atrial fibrillation with premature ventricular or aberrantly conducted complexes Minimal voltage criteria for LVH, may be normal variant ( [place] product ) NO SIGNIFICANT CHANGE FROM PRIOR TRACING Electronically Signed On 04-12-2024 8:55:43 PDT by Jomar Rodney MD
--- NOTE | 2024-04-12 09:26 | PC.NURSE ---
Patient complaints of continued dizziness,a nd weakness that is only marginally better compared to when he came in
[2024-04-12 10:18] LABS: Urine Volume 10mL (spun)
[2024-04-12 10:20] LABS: Bacteria Urine None Seen; Culture Indicated Urine Cult Not Indicated; RBC Urine None Seen (0-5/HPF); Squamous Epithelial Cell Urine None Seen (0-5/HPF); WBC Urine None Seen (0-5/HPF)
== END 2024-04-12 10:06 | disposition home or self-care (01) ==
PROVIDERS: Emergency Provider Emergency Medicine; PCP Internal Medicine
DX: R53.1 Weakness (principal); E86.0 Dehydration; Z79.82 Long term (current) use of aspirin
CPT/HCPCS: 36415; 71045; 80053; 81003; 81015; 82550; 83690; 84484; 85025; 93005

== ENCOUNTER 2024-04-12 17:44 | Emergency (ER) | payer MEDICARE, OTHER, SELFPAY ==
[2024-04-12] VITALS (11 sets, daily range): BP systolic 128–161; BP diastolic 59–85; PULSE 65–89; RESP 18; TEMP 37–37.2; O2SAT 95–98; BMI 26.6
[2024-04-12] MEDS: SODIUM CHLORIDE 0.9% 1,000 ML 125 ML IV (18:32)
[2024-04-12 18:53] LABS: Lactate (Lactic Acid) 1.3 mmol/L (0.7-2.1)
[2024-04-12 18:54] LABS: Alanine Aminotransferase 18 IU/L (<50); Albumin 3.8 g/dL (3.5-5.0); Albumin Globulin Ratio 1.3 (1.0-2.8); Alkaline Phosphatase 53 U/L (38-126); Aspartate Aminotransferase 29 IU/L (17-59); BUN Creatinine Ratio 25.2 (6-22); Bilirubin Total 0.6 mg/dL (0.2-1.3); Blood Urea Nitrogen 31 mg/dL (9-20); Calcium 8.4 mg/dL (8.4-10.2); Carbon Dioxide 22 mmol/L (22-32); Chloride 110 mmol/L (98-107); Estimated Glomerular Filt Rate 58 mL/min (>60); Globulin 2.9 g/dL (1.7-4.1); Glucose 109 mg/dL (80-110); HEMOLYSIS 26 (0-50); Potassium 4.7 mmol/L (3.4-5.1); Sodium 138 mmol/L (137-145); Total Protein 6.7 g/dL (6.3-8.2)
[2024-04-12 18:57] LABS: Adenovirus Not Detected (Not Detect); B. parapertussis Not Detected (Not Detecte); Bordetella pertussis Not Detected (Not Detect); Chlamydophila pneumoniae Not Detected (Not Detect); Coronavirus 229E Not Detected (Not Detect); Coronavirus HKU1 Not Detected (Not Detect); Coronavirus NL 63 Not Detected (Not Detect); Coronavirus OC43 Not Detected (Not Detect); Human Metapneumovirus Not Detected (Not Detect); Human Rhinovirus/Enterovirus Not Detected (Not Detect); Influenza A Not Detected (Not Detect); Influenza B Not Detected (Not Detect); Mycoplasma pneumoniae Not Detected (Not Detect); Parainfluenza Virus 1 Not Detected (Not Detect); Parainfluenza Virus 2 Not Detected (Not Detect); Parainfluenza Virus 3 Not Detected (Not Detect); Parainfluenza Virus 4 Not Detected (Not Detect); Respiratory Syncytial Virus Not Detected (Not Detect)
[2024-04-12 18:59] LABS: SARS- CoV-2 Detected (Not Detecte)
--- NOTE | 2024-04-12 19:06 | ED_ITS ---
HPI - Weakness General Chief complaint: Weakness Stated complaint: N/V Time Seen by Provider: 04/12/24 17:57 Source: patient and EMS Mode of arrival: EMS History of Present Illness HPI Narrative: 84-year-old male history of chronic atrial fibrillation with Watchman device on aspirin, chronic back pain, diabetes presents with complaint of generalized weakness and worsening back pain. Patient was seen earlier today during the morning. Patient had labs including CBC CMP, chest x-ray and EKG had fluids and Tylenol felt better and was ambulating in the department. Patient states he has had fevers at home, some cough and congestion. No chest pain, no increased shortness of breath, no orthopnea. No nausea or vomiting. He has had some diarrhea lately. No black or bloody stools. No dysuria urgency or frequency. No new swelling in extremities. States he has been tired and felt a little bit more weak but has been able to ambulate at home. Patient states is on aspirin daily no other anticoagulation. Has had a prior Watchman device, open heart surgery for valve repair and valve replacement in the . No known drug allergies. No tobacco, no alcohol no recreational drugs. He lives at home independently with his . Dr. Rodney is his primary care physician. Related Data Home Medications Medication Instructions Recorded Confirmed dutasteride 0.5 mg capsule 0.5 mg PO QDAY ##0 01/26/11 03/21/24 (Avodart) ascorbic acid (vitamin C) 500 mg 500 mg PO DAILY 04/26/18 12/14/23 tablet (Vitamin C) psyllium seed (sugar) oral powder 1 tbsp PO DAILY 04/01/20 12/14/23 (Metamucil (sugar) oral powder) Glucosamine Sulfate 1,000 mg PO DAILY 06/21/20 12/14/23 patiromer calcium sorbitex 8.4 16.8 gram PO DAILY 06/21/20 12/14/23 gram oral powder packet (Veltassa) losartan 50 mg tablet 50 mg PO DAILY 12/27/20 03/21/24 omega 7-cst-bzb-fish oil 1,000 mg 2 cap PO Q DAY #0 caps 12/27/20 12/14/23 (120 mg-180 mg) capsule (Fish Oil) tamsulosin 0.4 mg capsule (Flomax) 0.4 mg PO BID enlarged prostate 12/27/20 12/14/23 Glucose: Test Strips #1 ea 06/20/21 12/14/23 aspirin 81 mg tablet,delayed 81 mg PO DAILY 06/18/22 03/21/24 release (Adult Low Dose Aspirin) empagliflozin 10 mg tablet 10 mg PO DAILY 12/14/23 12/14/23 (Jardiance) Previous Rx's Medication Instructions Recorded metformin 500 mg tablet 500 mg PO BID #180 tabs 06/15/23 levothyroxine 125 mcg tablet 125 mcg PO DAILY #90 tabs 09/10/23 (Synthroid) metoprolol succinate 25 mg 50 mg (2 x 25 mg) PO DAILY #180 09/16/23 tablet,extended release 24 hr tabs atorvastatin 40 mg tablet 40 mg PO QPM #90 tabs 01/19/24 Allergies Allergy/AdvReac Type Severity Reaction Status Date / Time No Known Drug Allergies Allergy Verified 03/21/24 12:10 Review of Systems Review of Systems ROS Unobtainable: All systems reviewed & are unremarkable except as noted in HPI and below Patient History Medical History 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 Presence of Watchman left atrial appendage closure device (~12/2020) Elevated PSA Chronic renal failure, stage 2 (mild) Chronic a-fib Coronary artery disease Hyperlipemia Hypothyroidism Diverticular disease BPH (benign prostatic hyperplasia) GI bleed HTN (hypertension) Surgical History S/P CABG x 2 (03/25/09) Status post coronary artery bypass graft History of tonsillectomy Status post colectomy Family History Father Heart disease Mother Obesity Hypertension Diabetes mellitus Social History household members: spouse Smoking Status: Never smoker alcohol intake: former Smoking Status: Never smoker Substance Use Type: does not use Exam Narrative Exam Narrative: GEN: well nourished, well appearing male, alert and oriented x 3, patient appears to be in mild distress. HEENT: Atraumatic, pupils are equal round reactive to light, extraocular movements are intact, nares are clear, TMs are clear with no fluid, there is no conjunctival pallor. Throat is clear without any exudates, erythema, tonsillar enlargement or uvular deviation HEART: Regular rate and rhythm without murmur, clicks, rubs. LUNGS:Lungs clear to auscultation, no wheezes, rales, crackles, chest moves symmetrically, no tachypnea or accessory muscle use ABD:bowel sounds normal, soft, non-tender, no guarding, rebound, rigidity, no masses noted, no hepatosplenomegaly :No CVA tenderness MSCL: Non-tender, no muscle atrophy, muscles strength 5/5 upper and lower extremities, full range of motion, normal gait NEURO:CN 2-12 intact, sensation normal SKIN: No rash, erythema or other skin changes Initial Vital Signs Initial Vital Signs: Vital Signs Pulse Rate 74 04/12/24 17:49 Pulse Oximetry 97 04/12/24 17:49 Course Orders Ordered: ED Orders 04/12/24 18:05 CMP [Comprehensive Metabolic Panel] Stat Lactate (Lactic Acid) Stat Trop I [Troponin I] Stat Discontinued Medications Sodium Chloride (Normal Saline 0.9%) 1,000 mls @ 125 mls/hr IV CONT REYNALDO Last Admin: 04/12/24 18:32 Dose: 125 mls/hr Documented By: RB Vital Signs Vital signs: Vital Signs - 8 hr 04/12/24 19:00 04/12/24 19:00 04/12/24 19:42 Temperature Pulse Rate 74 85 Respiratory Rate 18 Blood Pressure 128/61 145/85 H Pulse Oximetry 96 97 Oxygen Delivery Method Room Air 04/12/24 19:43 Temperature 98.6 F Pulse Rate 65 Respiratory Rate 18 Blood Pressure 144/78 H Pulse Oximetry 97 Oxygen Delivery Method Room Air MDM - Weakness Lab Data 04/12/24 18:05 Labs: Lab Results 04/12/24 04/12/24 Range/Units 16:00 18:05 Sodium 138 (137-145) mmol/L Potassium 4.7 (3.4-5.1) mmol/L Chloride 110 H (98-107) mmol/L Carbon Dioxide 22 (22-32) mmol/L BUN 31 H (9-20) mg/dL Creatinine 1.23 (0.66-1.25) mg/dL Estimated GFR 58 L (>60) mL/min BUN/Creatinine Ratio 25.2 H (6-22) Glucose 109 (80-110) mg/dL Lactate 1.3 (0.7-2.1) mmol/L Calcium 8.4 (8.4-10.2) mg/dL Total Bilirubin 0.6 (0.2-1.3) mg/dL AST 29 (17-59) IU/L ALT 18 (<50) IU/L Alkaline Phosphatase 53 (38-126) U/L Troponin I 0.030 (0.01-0.034) ng/mL Total Protein 6.7 (6.3-8.2) g/dL Albumin 3.8 (3.5-5.0) g/dL Globulin 2.9 (1.7-4.1) g/dL Albumin/Globulin Ratio 1.3 (1.0-2.8) Chlamy pneumoniae PCR Not detected (Not Detect) Adenovirus (PCR) Not detected (Not Detect) B.parapertussis DNA PCR Not detected (Not Detecte) Coronavirus OC43 (PCR) Not detected (Not Detect) Coronavirus HKU1 (PCR) Not detected (Not Detect) Coronavirus 229E (PCR) Not detected (Not Detect) SARS-CoV-2 (PCR) Detected H (Not Detecte) Coronavirus NL63 (PCR) Not detected (Not Detect) Human Metapneumovir PCR Not detected (Not Detect) Influenza Type A (PCR) Not detected (Not Detect) Influenza Type B (PCR) Not detected (Not Detect) M. pneumoniae (PCR) Not detected (Not Detect) Parainfluenza 1 (PCR) Not detected (Not Detect) Parainfluenza 2 (PCR) Not detected (Not Detect) Parainfluenza 3 (PCR) Not detected (Not Detect) Parainfluenza 4 (PCR) Not detected (Not Detect) RSV (PCR) Not detected (Not Detect) Entero/Rhino (PCR) Not detected (Not Detect) MDM Narrative Medical decision making narrative: 84-year-old male returns for generalized weakness but was ambulating earlier today. CBC was not repeated and had a white count of 7.2, hemoglobin of 14 platelets of 133, chemistries were repeated this evening sodium is 138 potassium is 4.2 chloride 110, CO 22 with a BUN of 31, creatinine 1.23, glucose of 109- LFTs, troponin is 0.030. Patient had respiratory panel which is positive for COVID. Patient had chest x-ray this morning which showed cardiomegaly and mild congestion, no focal infiltrate no pleural effusion no pneumo thorax. Urine sample showed no acute changes. Patient received a L of fluids and Tylenol this morning, received fluids at 1:25 a.m. this evening. Patient is afebrile with otherwise appropriate vitals, no hypotension, no tachycardia, no hypoxia. Ambulation trial in the department. Patient stable to ambulate without significant assistance. Discussed with patient he would prefer to return home. He has not had any COVID immunizations. We discussed Paxlovid as patient might be candidate he defers. All questions answered. Discussed return precautions. Patient states he feels comfortable to return home. Discharge Plan Departure Patient Disposition: Home Clinical Impression: COVID-19 virus infection Instructions: DI for COVID-19 (Suspected or Confirmed ) Activity Restrictions/Additional Instructions: You have tested positive for COVID today. This viral illness typically last 7- 10 days total. You can take Tylenol up to a 1000 mg every 6 hours as needed for fevers. Continue to hydrate regularly. Please return for increased weakness, new chest pain, shortness of breath, lightheadedness or passing out, persistent vomiting, inability to ambulate safely at home or other new or concerning changes. Prescriptions: No Action (DME) Glucose: Test Strips See Rx Instructions .Route .MEDSUPPLY Qty: 1 Patient Comments: Use to test blood sugar once daily Rx Instructions: Use to check blood sugar daily. PER PATIENT, CURRENTLY NOT USING 06/20/21 Avodart 0.5 MG capsule 0.5 mg PO QDAY Qty: 0 omega 7-qnq-lef-fish oil [Fish Oil] 1,000 mg (120 mg-180 mg) capsule 2 cap PO Q DAY Qty: 0 Patient Comments: patient states he thinks dose is 500 mg levothyroxine [Synthroid] 125 mcg tablet 125 mcg PO DAILY Qty: 90 2RF atorvastatin 40 mg tablet 40 mg PO QPM Qty: 90 2RF Veltassa 8.4 gram powder in packet 16.8 gram PO DAILY losartan 50 mg tablet 50 mg PO DAILY Jardiance 10 mg tablet 10 mg PO DAILY metoprolol succinate 25 mg tablet extended release 24 hr 50 mg PO DAILY Qty: 180 3RF Glucosamine Sulfate 1,000 mg PO DAILY Metamucil (sugar) Powder 1 tbsp PO DAILY tamsulosin [Flomax] 0.4 mg capsule 0.4 mg PO BID aspirin [Adult Low Dose Aspirin] 81 mg tablet,delayed release (DR/EC) 81 mg PO DAILY metformin 500 mg tablet 500 mg PO BID Qty: 180 3RF ascorbic acid (vitamin C) [Vitamin C] 500 mg Tablet 500 mg PO DAILY Referrals: Jomar Rodney MD [Primary Care Provider] - Stand Alone Forms: Patient Portal/API
== END 2024-04-12 20:04 | disposition home or self-care (01) ==
PROVIDERS: Emergency Medicine; Emergency Provider Emergency Medicine; PCP Internal Medicine
DX: U07.1 COVID-19 (principal); R11.2 Nausea with vomiting, unspecified; Z95.2 Presence of prosthetic heart valve; Z79.899 Other long term (current) drug therapy
CPT/HCPCS: 36415; 71045; 80053; 81003; 81015; 82550; 83605; 83690; 84484; 85025; 87633; 93005; 99284

== ENCOUNTER → 2024-05-24 08:40 | Outpatient (CLI) | payer MEDICARE, OTHER, SELFPAY ==
[2024-05-24 11:08] LABS: Alanine Aminotransferase 19 IU/L (<50); Albumin 3.8 g/dL (3.5-5.0); Albumin Globulin Ratio 1.4 (1.0-2.8); Alkaline Phosphatase 70 U/L (38-126); Aspartate Aminotransferase 32 IU/L (17-59); Blood Urea Nitrogen 33 mg/dL (9-20); Calcium 10.1 mg/dL (8.4-10.2); Carbon Dioxide 20 mmol/L (22-32); Chloride 108 mmol/L (98-107); Cholesterol 121 mg/dL (140-199); Estimated Glomerular Filt Rate 58 mL/min (>60); Globulin 2.8 g/dL (1.7-4.1); Glucose 98 mg/dL (80-110); HDL Cholesterol 44 mg/dL (40-60); HEMOLYSIS < 15 (0-50); LDL Cholesterol Calculated 53 mg/dL (<100); Sodium 137 mmol/L (137-145); Total Protein 6.6 g/dL (6.3-8.2); Triglycerides 118 mg/dL (35-150)
[2024-05-24 11:09] LABS: Potassium 5.6 mmol/L (3.4-5.1)
[2024-05-24 21:01] LABS: Hemoglobin A1C% w Est Avg Glu 5.9 % (4.0-6.0)
== END ==
PROVIDERS: PCP Internal Medicine; Referring Provider Internal Medicine Cardiovascular Disease; Visit Provider Internal Medicine Cardiovascular Disease
DX: E11.21 Type 2 diabetes mellitus with diabetic nephropathy (principal); I25.10 Atherosclerotic heart disease of native coronary artery without angina pectoris; I48.91 Unspecified atrial fibrillation; I10 Essential (primary) hypertension
CPT/HCPCS: 36415; 80053; 80061; 83036

== ENCOUNTER → 2024-05-30 05:56 | Outpatient (CLI) | payer MEDICARE, OTHER, SELFPAY ==
[2024-05-30 08:35] LABS: Alanine Aminotransferase 17 IU/L (<50); Albumin 4.1 g/dL (3.5-5.0); Albumin Globulin Ratio 1.6 (1.0-2.8); Alkaline Phosphatase 60 U/L (38-126); Aspartate Aminotransferase 28 IU/L (17-59); BUN Creatinine Ratio 29.2 (6-22); Bilirubin Total 0.8 mg/dL (0.2-1.3); Blood Urea Nitrogen 38 mg/dL (9-20); Calcium 9.8 mg/dL (8.4-10.2); Carbon Dioxide 22 mmol/L (22-32); Chloride 107 mmol/L (98-107); Cholesterol 132 mg/dL (140-199); Estimated Glomerular Filt Rate 54 mL/min (>60); Globulin 2.6 g/dL (1.7-4.1); Glucose 93 mg/dL (80-110); HDL Cholesterol 46 mg/dL (40-60); HEMOLYSIS < 15 (0-50); LDL Cholesterol Calculated 55 mg/dL (<100); Potassium 5.1 mmol/L (3.4-5.1); Sodium 137 mmol/L (137-145); Total Protein 6.7 g/dL (6.3-8.2); Triglycerides 154 mg/dL (35-150)
== END ==
PROVIDERS: PCP Internal Medicine; Referring Provider Internal Medicine Cardiovascular Disease; Visit Provider Internal Medicine Cardiovascular Disease
DX: I25.10 Atherosclerotic heart disease of native coronary artery without angina pectoris (principal); I48.91 Unspecified atrial fibrillation
CPT/HCPCS: 36415; 80053; 80061

== ENCOUNTER → 2024-07-22 09:08 | Outpatient (CLI) | payer MEDICARE, OTHER, SELFPAY ==
[2024-07-22 10:48] LABS: Hematocrit 46.1 % (41-53); Hemoglobin 15.1 g/dL (13.5-17.5)
[2024-07-22 13:03] LABS: BUN Creatinine Ratio 23.6 (6-22); Blood Urea Nitrogen 29 mg/dL (9-20); Calcium 9.7 mg/dL (8.4-10.2); Carbon Dioxide 21 mmol/L (22-32); Chloride 110 mmol/L (98-107); Estimated Glomerular Filt Rate 58 mL/min (>60); Glucose 97 mg/dL (80-110); HEMOLYSIS < 15 (0-50); Potassium 4.9 mmol/L (3.4-5.1); Sodium 140 mmol/L (137-145)
[2024-07-22 13:50] LABS: Creatinine Urine Random 187.64 mg/dL; Protein (Total) Urine Random 127 mg/dL (0-12); Protein Creatinine Ratio Urine 0.67 GRAM/24H
[2024-07-23 08:11] LABS: Parathyroid Hormone Int 31 pg/mL (15-65)
== END ==
PROVIDERS: Student in an Organized Health Care Education/Training Program; PCP Internal Medicine; Referring Provider Internal Medicine; Visit Provider Internal Medicine
DX: R80.9 Proteinuria, unspecified (principal); D70.9 Neutropenia, unspecified; D63.1 Anemia in chronic kidney disease; N25.81 Secondary hyperparathyroidism of renal origin
CPT/HCPCS: 36415; 80048; 82570; 83970; 84156; 85014; 85018

== ENCOUNTER → 2024-12-29 06:00 | Outpatient (CLI) | payer MEDICARE, OTHER, SELFPAY ==
[2024-12-29 08:33] LABS: Alanine Aminotransferase 26 IU/L (<50); Albumin 4.2 g/dL (3.5-5.0); Albumin Globulin Ratio 1.6 (1.0-2.8); Alkaline Phosphatase 62 U/L (38-126); Aspartate Aminotransferase 34 IU/L (17-59); BUN Creatinine Ratio 28.1 (6-22); Bilirubin Total 0.9 mg/dL (0.2-1.3); Blood Urea Nitrogen 36 mg/dL (9-20); Calcium 10.1 mg/dL (8.4-10.2); Carbon Dioxide 20 mmol/L (22-32); Chloride 111 mmol/L (98-107); Cholesterol 126 mg/dL (140-199); Estimated Glomerular Filt Rate 55 mL/min (>60); Globulin 2.7 g/dL (1.7-4.1); Glucose 107 mg/dL (80-110); HDL Cholesterol 40 mg/dL (40-60); HEMOLYSIS < 15 (0-50); LDL Cholesterol Calculated 63 mg/dL (<100); Sodium 141 mmol/L (137-145); Total Protein 6.9 g/dL (6.3-8.2); Triglycerides 114 mg/dL (35-150)
[2024-12-29 08:34] LABS: Hemoglobin A1C% w Est Avg Glu 5.9 % (4.0-6.0); Potassium 5.6 mmol/L (3.4-5.1)
[2024-12-29 09:26] LABS: Free T4, Direct Thyroxine 0.97 ng/dL (0.78-2.19)
[2024-12-29 09:40] LABS: Thyroid Stimulating Hormone 1.01 uIU/mL (0.47-4.68)
== END ==
PROVIDERS: PCP Internal Medicine; Referring Provider Internal Medicine; Visit Provider Internal Medicine
DX: E11.21 Type 2 diabetes mellitus with diabetic nephropathy (principal); I10 Essential (primary) hypertension; E78.2 Mixed hyperlipidemia; E03.9 Hypothyroidism, unspecified
CPT/HCPCS: 36415; 80053; 80061; 83036; 84439; 84443

== ENCOUNTER → 2025-01-25 09:06 | Outpatient (CLI) | payer MEDICARE, OTHER, SELFPAY ==
[2025-01-25 10:38] LABS: Hematocrit 46.2 % (41-53); Hemoglobin 15.1 g/dL (13.5-17.5)
[2025-01-25 11:17] LABS: BUN Creatinine Ratio 26.3 (6-22); Blood Urea Nitrogen 31 mg/dL (9-20); Calcium 9.9 mg/dL (8.4-10.2); Carbon Dioxide 22 mmol/L (22-32); Chloride 105 mmol/L (98-107); Estimated Glomerular Filt Rate > 60 mL/min (>60); Glucose 102 mg/dL (70-99); HEMOLYSIS < 15 (0-50); Potassium 5.2 mmol/L (3.4-5.1); Sodium 147 mmol/L (137-145)
[2025-01-25 14:45] LABS: Creatinine Urine Random 135.02 mg/dL; Protein (Total) Urine Random 194 mg/dL (0-12); Protein Creatinine Ratio Urine 1.43 GRAM/24H
[2025-01-26 06:36] LABS: Parathyroid Hormone Int 36 pg/mL (15-65)
== END ==
PROVIDERS: PCP Internal Medicine; Referring Provider Student in an Organized Health Care Education/Training Program; Visit Provider Student in an Organized Health Care Education/Training Program
DX: N05.9 Unspecified nephritic syndrome with unspecified morphologic changes (principal); D70.9 Neutropenia, unspecified; D63.1 Anemia in chronic kidney disease; N25.81 Secondary hyperparathyroidism of renal origin; R80.9 Proteinuria, unspecified
CPT/HCPCS: 36415; 80048; 82570; 83970; 84156; 85014; 85018

== ENCOUNTER → 2025-02-05 08:50 | Outpatient (CLI) | payer MEDICARE, OTHER, SELFPAY ==
[2025-02-05 10:13] LABS: HEMOLYSIS < 15 (0-50); Potassium 5.2 mmol/L (3.4-5.1)
== END ==
PROVIDERS: PCP Internal Medicine; Referring Provider Student in an Organized Health Care Education/Training Program; Visit Provider Student in an Organized Health Care Education/Training Program
DX: E87.5 Hyperkalemia (principal)
CPT/HCPCS: 36415; 84132

== ENCOUNTER → 2025-02-14 11:06 | Outpatient (CLI) | payer MEDICARE, OTHER, SELFPAY ==
[2025-02-14 12:32] LABS: BUN Creatinine Ratio 29.4 (6-22); Blood Urea Nitrogen 35 mg/dL (9-20); Calcium 10.2 mg/dL (8.4-10.2); Carbon Dioxide 23 mmol/L (22-32); Chloride 107 mmol/L (98-107); Estimated Glomerular Filt Rate 59 mL/min (>60); Glucose 104 mg/dL (70-99); HEMOLYSIS 21 (0-50); Potassium 4.6 mmol/L (3.4-5.1); Sodium 141 mmol/L (137-145)
[2025-02-14 15:49] LABS: Creatinine Urine Random 101.67 mg/dL; Protein (Total) Urine Random 145 mg/dL (0-12); Protein Creatinine Ratio Urine 1.42 GRAM/24H
== END ==
PROVIDERS: PCP Internal Medicine; Referring Provider Student in an Organized Health Care Education/Training Program; Visit Provider Student in an Organized Health Care Education/Training Program
DX: N05.9 Unspecified nephritic syndrome with unspecified morphologic changes (principal); R80.9 Proteinuria, unspecified
CPT/HCPCS: 36415; 80048; 82570; 84156

== ENCOUNTER → 2025-03-01 06:07 | Outpatient (CLI) | payer MEDICARE, OTHER, SELFPAY ==
[2025-03-01 07:58] LABS: Alanine Aminotransferase 21 IU/L (<50); Albumin 4.3 g/dL (3.5-5.0); Albumin Globulin Ratio 1.6 (1.0-2.8); Alkaline Phosphatase 92 U/L (38-126); Aspartate Aminotransferase 32 IU/L (17-59); BUN Creatinine Ratio 36.8 (6-22); Bilirubin Total 0.6 mg/dL (0.2-1.3); Blood Urea Nitrogen 50 mg/dL (9-20); Carbon Dioxide 21 mmol/L (22-32); Chloride 109 mmol/L (98-107); Cholesterol 125 mg/dL (140-199); Estimated Glomerular Filt Rate 51 mL/min (>60); Globulin 2.7 g/dL (1.7-4.1); Glucose 107 mg/dL (70-99); HDL Cholesterol 40 mg/dL (40-60); HEMOLYSIS < 15 (0-50); LDL Cholesterol Calculated 60 mg/dL (<100); Sodium 140 mmol/L (137-145); Triglycerides 123 mg/dL (35-150)
[2025-03-01 08:01] LABS: Potassium 5.5 mmol/L (3.4-5.1)
== END ==
PROVIDERS: PCP Internal Medicine; Referring Provider Internal Medicine; Visit Provider Internal Medicine
DX: E11.21 Type 2 diabetes mellitus with diabetic nephropathy (principal); I10 Essential (primary) hypertension; E78.2 Mixed hyperlipidemia
CPT/HCPCS: 36415; 80053; 80061; 83036

== ENCOUNTER → 2025-03-13 08:05 | Outpatient (CLI) | payer MEDICARE, OTHER, SELFPAY ==
[2025-03-13 09:33] LABS: HEMOLYSIS < 15 (0-50); Potassium 4.8 mmol/L (3.4-5.1)
== END ==
PROVIDERS: PCP Internal Medicine; Referring Provider Student in an Organized Health Care Education/Training Program; Visit Provider Student in an Organized Health Care Education/Training Program
DX: E87.5 Hyperkalemia (principal)
CPT/HCPCS: 36415; 84132

== ENCOUNTER → 2025-06-19 10:47 | Outpatient (CLI) | payer MEDICARE, OTHER, SELFPAY ==
[2025-06-19 11:43] LABS: Hematocrit 40.9 % (41-53); Hemoglobin 13.7 g/dL (13.5-17.5)
[2025-06-19 11:58] LABS: Protein (Total) Urine Random 82 mg/dL (0-12); Protein Creatinine Ratio Urine 0.67 GRAM/24H
[2025-06-19 12:00] LABS: Blood Urea Nitrogen 43 mg/dL (9-20); Calcium 10.0 mg/dL (8.4-10.2); Carbon Dioxide 24 mmol/L (22-32); Chloride 106 mmol/L (98-107); Estimated Glomerular Filt Rate 44 mL/min (>60); Glucose 93 mg/dL (70-99); HEMOLYSIS < 15 (0-50); Potassium 4.7 mmol/L (3.4-5.1); Sodium 139 mmol/L (137-145)
== END ==
PROVIDERS: PCP Internal Medicine; Referring Provider Student in an Organized Health Care Education/Training Program; Visit Provider Student in an Organized Health Care Education/Training Program
DX: D70.9 Neutropenia, unspecified (principal); D63.1 Anemia in chronic kidney disease; N05.9 Unspecified nephritic syndrome with unspecified morphologic changes; N25.81 Secondary hyperparathyroidism of renal origin; R80.9 Proteinuria, unspecified
CPT/HCPCS: 36415; 80048; 82570; 83970; 84156; 85014; 85018

== ENCOUNTER 2025-07-15 16:32 | Emergency (ER) | payer MEDICARE, OTHER, SELFPAY ==
[2025-07-15] VITALS (22 sets, daily range): BP systolic 98–136; BP diastolic 57–74; PULSE 41–70; RESP 16–18; TEMP 36.6; O2SAT 94–99; BMI 26.1
--- NOTE | 2025-07-15 17:48 | DI.CT.S_ITS ---
PROCEDURE: CT LUMBAR SPINE WO CON INDICATIONS: back pain TECHNIQUE: Noncontrast 3 mm thick sections acquired from the T12 level to the sacrum. Sagittal and coronal reformats were constructed. For radiation dose reduction, the following was used: automated exposure control. COMPARISON: None. FINDINGS: Image quality: Excellent. Bones: Grade 1 anterolisthesis of L4 on L5. No acute vertebral body compression fractures. No suspicious lytic or blastic bony lesions. No pars defects. T12-L1: Mild disc height loss. L1-L2: Moderate disc height loss. Mild facet hypertrophy. L2-L3: Broad-based disc bulge, facet hypertrophy results in moderate to severe spinal canal narrowing. L3-L4: Broad-based disc bulge, facet hypertrophy results in moderate spinal canal narrowing. Moderate bilateral neural foraminal narrowing. L4-L5: Broad-based disc bulge, facet hypertrophy results in severe spinal canal narrowing. Moderate left and moderate to severe right neural foraminal narrowing. L5-S1: Facet hypertrophy. Moderate neural foraminal narrowing. Soft tissues: No retroperitoneal masses or hematomas. Visualized aorta is normal in caliber. IMPRESSION: No acute bony abnormality. Multilevel degenerative disc disease and facet arthrosis. Of note: Moderate to severe spinal canal narrowing at L2-3, L3-4, L4-5. Moderate to severe neural foraminal narrowing at L3-4, L4-5 and L5-S1. Dictated by: Jam Vallejo M.D. on 07/15/2025 at 17:13 Approved by: Jam Vallejo M.D. on 07/15/2025 at 17:17
--- NOTE | 2025-07-15 20:49 | ED.BACK ---
HPI - Back Pain/Injury <Roel Feng MD - Last Filed: 07/29/25 02:05> General Chief Complaint: Back Pain/Injury Stated Complaint: R lower back pain. Time Seen by Provider: 07/15/25 17:48 Source: EMS History of Present Illness HPI Narrative: 85-year-old male with a long-time history of lower back pain now can not move his right lower extremity at all. His source of pain is in his right anterior femur area. Related Data Home Medications ?Medication ?Instructions ?Recorded ?Confirmed dutasteride 0.5 mg capsule 0.5 mg PO QDAY ##0 01/26/11 06/29/25 (Avodart) ascorbic acid (vitamin C) 500 mg 500 mg PO DAILY 04/26/18 06/29/25 tablet (Vitamin C) psyllium seed (sugar) oral powder 1 tbsp PO DAILY 04/01/20 06/29/25 (Metamucil (sugar) oral powder) Glucosamine Sulfate 1,000 mg PO DAILY 06/21/20 06/29/25 omega 8-plc-mmh-fish oil 1,000 mg 2 cap PO Q DAY #0 caps 12/27/20 06/29/25 (120 mg-180 mg) capsule (Fish Oil) tamsulosin 0.4 mg capsule (Flomax) 0.4 mg PO BID enlarged prostate 12/27/20 06/29/25 Glucose: Test Strips #1 ea 06/20/21 06/29/25 aspirin 81 mg tablet,delayed 81 mg PO DAILY 06/18/22 06/29/25 release (Adult Low Dose Aspirin) empagliflozin 10 mg tablet 10 mg PO DAILY 12/14/23 06/29/25 (Jardiance) patiromer calcium sorbitex 16.8 16.8 g PO DAILY 12/29/24 06/29/25 gram oral powder packet (Veltassa) amlodipine 5 mg tablet 5 mg PO DAILY 06/29/25 06/29/25 hydrochlorothiazide 25 mg tablet 25 mg PO DAILY 06/29/25 06/29/25 Previous Rx's ?Medication ?Instructions ?Recorded atorvastatin 40 mg tablet 40 mg PO QPM #90 tabs 10/12/24 metoprolol succinate 25 mg 50 mg (2 x 25 mg) PO DAILY #180 11/13/24 tablet,extended release 24 hr tabs metformin 500 mg tablet 500 mg PO BID #180 tabs 06/25/25 Commode #1 ea 07/20/25 Gait Belt #1 ea 07/20/25 Grab Bar #1 ea 07/20/25 Hospital Bed #1 ea 07/20/25 Male Urinal #1 ea 07/20/25 Raised Toilet Seat #1 ea 07/20/25 Recliner chair with lift #1 ea 07/20/25 Shower chair #1 ea 07/20/25 Walker #1 ea 07/20/25 Wheelchair #1 ea 07/20/25 hydrocodone 5 mg-acetaminophen 325 1 tab PO Q6H PRN pain #20 tabs 07/20/25 mg tablet levothyroxine 125 mcg tablet 125 mcg PO DAILY #90 tabs 07/27/25 (Synthroid) Allergies Allergy/AdvReac Type Severity Reaction Status Date / Time No Known Drug Allergies Allergy Verified 06/29/25 09:53 Review of Systems <Roel Feng MD - Last Filed: 07/29/25 02:05> Review of Systems ROS Unobtainable: All systems reviewed & are unremarkable except as noted in HPI and below Patient History <Roel Feng MD - Last Filed: 07/29/25 02:05> Medical History (Updated 07/17/25 @ 07:56 by Fernanda Vizcarra DO) COVID-19 virus infection (~04/2024) 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 Presence of Watchman left atrial appendage closure device (~12/2020) Elevated PSA Chronic renal failure, stage 2 (mild) Chronic a-fib Coronary artery disease Hyperlipemia Hypothyroidism Diverticular disease BPH (benign prostatic hyperplasia) GI bleed HTN (hypertension) Surgical History S/P CABG x 2 (03/25/09) Status post coronary artery bypass graft History of tonsillectomy Status post colectomy Family History Father Heart disease Mother Obesity Hypertension Diabetes mellitus Social History household members: spouse alcohol intake: former Exam <Roel Feng MD - Last Filed: 07/29/25 02:05> Narrative Exam Narrative: General: Patient appears to be in no acute distress, acting appropriately Head: normocephalic, atraumatic, HEENT: Pupils equal round reactive, eyes tracking well, neck supple, no JVD Heart: regular rate and rhythm, no murmurs, rubs, or gallops heard Lungs: clear to auscultation, no adventitious sounds Abdomen: soft , nontender, nondistended, positive bowel sounds Neurological: no focal neurological signs, difficulty moving his right lower extremity, pain with palpation over the right femur area., alert and oriented x3, Psych: good judgment ,good insight, mood is normal. Initial Vital Signs Initial Vital Signs: Vital Signs Temperature 98 F 07/15/25 16:34 Pulse Rate 52 L 07/15/25 16:34 Respiratory Rate 16 07/15/25 16:34 Blood Pressure 136/59 L 07/15/25 16:34 Pulse Oximetry 99 07/15/25 16:34 Oxygen Delivery Method Room Air 07/15/25 16:34 <Fernanda Vizcarra DO - Last Filed: 07/17/25 14:50> Initial Vital Signs Initial Vital Signs: Vital Signs Temperature 98 F 07/15/25 16:34 Pulse Rate 52 L 07/15/25 16:34 Respiratory Rate 16 07/15/25 16:34 Blood Pressure 136/59 L 07/15/25 16:34 Pulse Oximetry 99 07/15/25 16:34 Oxygen Delivery Method Room Air 07/15/25 16:34 Course <Roel Feng MD - Last Filed: 07/29/25 02:05> Orders Ordered: Discontinued Medications Hydrocodone Bitart/Acetaminophen (Hydrocodone/Acet 5/325 Tablet) 1 tab PO NOW ONE Stop: 07/15/25 17:50 Last Admin: 07/15/25 18:18 Dose: 1 tab Documented By: RLS Hydrocodone Bitart/Acetaminophen (Hydrocodone/Acet 5/325 Tablet) 1 tab PO NOW ONE Stop: 07/15/25 21:00 Last Admin: 07/15/25 21:02 Dose: 1 tab Documented By: NIRALI Hydrocodone Bitart/Acetaminophen (Hydrocodone/Acet 5/325 Tablet) 1 tab PO NOW ONE Stop: 07/16/25 04:17 Last Admin: 07/16/25 04:22 Dose: 1 tab Documented By: RLC Hydrocodone Bitart/Acetaminophen (Hydrocodone/Acet 5/325 Tablet) 1 tab PO Q4H PRN PRN Reason: Pain, Moderate (4-6) Last Admin: 07/17/25 11:57 Dose: 1 tab Documented By: Admin: 07/17/25 07:29 Dose: 1 tab Documented By: WILLIE Dexamethasone (Dexamethasone 10 Mg/Ml Vial) 6 mg IV NOW ONE Stop: 07/16/25 12:11 Last Admin: 07/16/25 12:23 Dose: 6 mg Documented By: MIGUEL Dexamethasone (Dexamethasone 10 Mg/Ml Vial) 6 mg IV NOW ONE Stop: 07/17/25 07:11 Last Admin: 07/17/25 07:29 Dose: 6 mg Documented By: WILLIE Dextrose (Dextrose 50 % In Water 25 Gm/50 Ml Syringe) 25 gm IV NOW ONE Stop: 07/17/25 08:25 Last Admin: 07/17/25 08:49 Dose: 25 gm Documented By: WILLIE Acetaminophen (Ofirmev) 1,000 mg in 100 mls @ 400 mls/hr IV NOW ONE Stop: 07/16/25 07:38 Last Infusion: 07/16/25 09:06 Dose: Infused Documented By: Admin: 07/16/25 08:45 Dose: 400 mls/hr Documented By: MIGUEL Insulin Human Regular (Insulin Regular 100 Unit/Ml 3 Ml Vial) 5 unit IV NOW ONE Stop: 07/17/25 08:25 Last Admin: 07/17/25 08:50 Dose: 5 unit Documented By: WILLIE Co-signed By: RANI Sodium Zirconium Cyclosilicate (Sodium Zirconium Cyclosilicate 10 Gm Powd.Pack) 10 gm PO NOW ONE Stop: 07/17/25 08:24 Last Admin: 07/17/25 08:49 Dose: 10 gm Documented By: WILLIE Vital Signs Vital signs: Vital Signs - 8 hr 07/17/25 07:42 07/17/25 07:43 07/17/25 07:43 Temperature Pulse Rate 84 75 Respiratory Rate Blood Pressure 142/95 H Pulse Oximetry 97 98 Oxygen Delivery Method 07/17/25 09:09 07/17/25 09:09 07/17/25 09:30 Temperature Pulse Rate 87 85 Respiratory Rate 24 28 H Blood Pressure 144/87 H Pulse Oximetry 96 Oxygen Delivery Method 07/17/25 09:31 07/17/25 10:00 07/17/25 10:00 Temperature Pulse Rate 69 Respiratory Rate 15 Blood Pressure 168/102 H 128/77 Pulse Oximetry Oxygen Delivery Method 07/17/25 10:30 07/17/25 10:30 07/17/25 11:00 Temperature Pulse Rate 69 87 Respiratory Rate 13 27 H Blood Pressure 123/57 L Pulse Oximetry Oxygen Delivery Method 07/17/25 11:01 07/17/25 11:01 07/17/25 11:30 Temperature Pulse Rate 80 74 Respiratory Rate 25 H 20 Blood Pressure 155/87 H Pulse Oximetry Oxygen Delivery Method 07/17/25 11:31 07/17/25 11:31 07/17/25 11:48 Temperature Pulse Rate 83 Respiratory Rate 21 Blood Pressure 113/76 Pulse Oximetry 98 Oxygen Delivery Method Room Air 07/17/25 12:29 Temperature 97.6 F Pulse Rate Respiratory Rate Blood Pressure Pulse Oximetry Oxygen Delivery Method <Fernanda Vizcarra, - Last Filed: 07/17/25 14:50> Orders Ordered: Discontinued Medications Hydrocodone Bitart/Acetaminophen (Hydrocodone/Acet 5/325 Tablet) 1 tab PO NOW ONE Stop: 07/15/25 17:50 Last Admin: 07/15/25 18:18 Dose: 1 tab Documented By: KAVIN Hydrocodone Bitart/Acetaminophen (Hydrocodone/Acet 5/325 Tablet) 1 tab PO NOW ONE Stop: 07/15/25 21:00 Last Admin: 07/15/25 21:02 Dose: 1 tab Documented By: NIRALI Hydrocodone Bitart/Acetaminophen (Hydrocodone/Acet 5/325 Tablet) 1 tab PO NOW ONE Stop: 07/16/25 04:17 Last Admin: 07/16/25 04:22 Dose: 1 tab Documented By: RLC Hydrocodone Bitart/Acetaminophen (Hydrocodone/Acet 5/325 Tablet) 1 tab PO Q4H PRN PRN Reason: Pain, Moderate (4-6) Last Admin: 07/17/25 11:57 Dose: 1 tab Documented By: Admin: 07/17/25 07:29 Dose: 1 tab Documented By: MLM Dexamethasone (Dexamethasone 10 Mg/Ml Vial) 6 mg IV NOW ONE Stop: 07/16/25 12:11 Last Admin: 07/16/25 12:23 Dose: 6 mg Documented By: EB Dexamethasone (Dexamethasone 10 Mg/Ml Vial) 6 mg IV NOW ONE Stop: 07/17/25 07:11 Last Admin: 07/17/25 07:29 Dose: 6 mg Documented By: WILLIE Dextrose (Dextrose 50 % In Water 25 Gm/50 Ml Syringe) 25 gm IV NOW ONE Stop: 07/17/25 08:25 Last Admin: 07/17/25 08:49 Dose: 25 gm Documented By: WILLIE Acetaminophen (Ofirmev) 1,000 mg in 100 mls @ 400 mls/hr IV NOW ONE Stop: 07/16/25 07:38 Last Infusion: 07/16/25 09:06 Dose: Infused Documented By: Admin: 07/16/25 08:45 Dose: 400 mls/hr Documented By: MIGUEL Insulin Human Regular (Insulin Regular 100 Unit/Ml 3 Ml Vial) 5 unit IV NOW ONE Stop: 07/17/25 08:25 Last Admin: 07/17/25 08:50 Dose: 5 unit Documented By: WILLIE Co-signed By: RANI Sodium Zirconium Cyclosilicate (Sodium Zirconium Cyclosilicate 10 Gm Powd.Pack) 10 gm PO NOW ONE Stop: 07/17/25 08:24 Last Admin: 07/17/25 08:49 Dose: 10 gm Documented By: WILLIE Vital Signs Vital signs: Vital Signs - 8 hr 07/17/25 07:42 07/17/25 07:43 07/17/25 07:43 Temperature Pulse Rate 84 75 Respiratory Rate Blood Pressure 142/95 H Pulse Oximetry 97 98 Oxygen Delivery Method 07/17/25 09:09 07/17/25 09:09 07/17/25 09:30 Temperature Pulse Rate 87 85 Respiratory Rate 24 28 H Blood Pressure 144/87 H Pulse Oximetry 96 Oxygen Delivery Method 07/17/25 09:31 07/17/25 10:00 07/17/25 10:00 Temperature Pulse Rate 69 Respiratory Rate 15 Blood Pressure 168/102 H 128/77 Pulse Oximetry Oxygen Delivery Method 07/17/25 10:30 07/17/25 10:30 07/17/25 11:00 Temperature Pulse Rate 69 87 Respiratory Rate 13 27 H Blood Pressure 123/57 L Pulse Oximetry Oxygen Delivery Method 07/17/25 11:01 07/17/25 11:01 07/17/25 11:30 Temperature Pulse Rate 80 74 Respiratory Rate 25 H 20 Blood Pressure 155/87 H Pulse Oximetry Oxygen Delivery Method 07/17/25 11:31 07/17/25 11:31 07/17/25 11:48 Temperature Pulse Rate 83 Respiratory Rate 21 Blood Pressure 113/76 Pulse Oximetry 98 Oxygen Delivery Method Room Air 07/17/25 12:29 Temperature 97.6 F Pulse Rate Respiratory Rate Blood Pressure Pulse Oximetry Oxygen Delivery Method MDM - Back Pain/Injury <Roel Feng MD - Last Filed: 07/29/25 02:05> Lab Data 07/17/25 07:55 07/17/25 10:57 Labs: Lab Results 07/16/25 07/16/25 07/17/25 Range/Units 08:40 16:25 07:55 WBC 5.3 8.6 D (4.5-11.0) X10^3/uL RBC 4.27 L 4.39 L (4.5-5.9) X10^6/uL Hgb 13.9 14.2 (13.5-17.5) g/dL Hct 42.0 43.2 (41-53) % MCV 98.4 98.4 (80-100) fL MCH 32.7 32.5 (26-34) PG MCHC 33.2 33.0 (30-36) % RDW 15.6 H 15.5 H (11.6-14.8) % Plt Count 104 L 121 L (150-400) X10^3/uL Neut % (Auto) 59.1 87.1 H D (50-75) % Lymph % (Auto) 20.3 L 8.3 L (25-40) % [place] % (Auto) 5.9 4.4 (3-14) % Eos % (Auto) 14.5 H 0.1 L (2-4) % Baso % (Auto) 0.2 0.1 (0-2) % Neut # (Auto) 3100 7500 H (2232-6043) /uL Lymph # (Auto) 1100 700 L (3798-0852) /uL [place] # (Auto) 300 400 (0-900) /uL Eos # (Auto) 800 H 0 (0-450) /uL Baso # (Auto) 0 0 (0-100) /uL Sodium 136 L 135 L 134 L (137-145) mmol/L Potassium 5.2 H 5.2 H 5.9 H (3.4-5.1) mmol/L Chloride 103 101 101 (98-107) mmol/L Carbon Dioxide 26 24 25 (22-32) mmol/L BUN 33 H 33 H 35 H (9-20) mg/dL Creatinine 1.38 H 1.36 H 1.51 H (0.66-1.25) mg/dL Estimated GFR 50 L 51 L 45 L (>60) mL/min BUN/Creatinine Ratio 23.9 H 24.3 H 23.2 H (6-22) Glucose 107 H 135 H 121 H (70-99) mg/dL POC Whole Bld Glucose (70-99) mg/dL Calcium 9.3 9.3 9.4 (8.4-10.2) mg/dL Total Bilirubin 0.8 0.7 (0.2-1.3) mg/dL AST 118 H 91 H (17-59) IU/L ALT 82 H 72 H (<50) IU/L Alkaline Phosphatase 64 64 (38-126) U/L Total Protein 7.5 7.8 (6.3-8.2) g/dL Albumin 4.4 4.6 (3.5-5.0) g/dL Globulin 3.1 3.2 (1.7-4.1) g/dL Albumin/Globulin Ratio 1.4 1.4 (1.0-2.8) 07/17/25 07/17/25 Range/Units 09:56 10:57 WBC (4.5-11.0) X10^3/uL RBC (4.5-5.9) X10^6/uL Hgb (13.5-17.5) g/dL Hct (41-53) % MCV (80-100) fL MCH (26-34) PG MCHC (30-36) % RDW (11.6-14.8) % Plt Count (150-400) X10^3/uL Neut % (Auto) (50-75) % Lymph % (Auto) (25-40) % [place] % (Auto) (3-14) % Eos % (Auto) (2-4) % Baso % (Auto) (0-2) % Neut # (Auto) (8156-6838) /uL Lymph # (Auto) (8386-4791) /uL [place] # (Auto) (0-900) /uL Eos # (Auto) (0-450) /uL Baso # (Auto) (0-100) /uL Sodium 134 L (137-145) mmol/L Potassium 4.5 D (3.4-5.1) mmol/L Chloride 100 (98-107) mmol/L Carbon Dioxide 23 (22-32) mmol/L BUN 36 H (9-20) mg/dL Creatinine 1.52 H (0.66-1.25) mg/dL Estimated GFR 44 L (>60) mL/min BUN/Creatinine Ratio 23.7 H (6-22) Glucose 202 H (70-99) mg/dL POC Whole Bld Glucose 241 H (70-99) mg/dL Calcium 9.1 (8.4-10.2) mg/dL Total Bilirubin (0.2-1.3) mg/dL AST (17-59) IU/L ALT (<50) IU/L Alkaline Phosphatase (38-126) U/L Total Protein (6.3-8.2) g/dL Albumin (3.5-5.0) g/dL Globulin (1.7-4.1) g/dL Albumin/Globulin Ratio (1.0-2.8) Point of Care Testing Glucose POC 241 Urine Dip Bedside Urine Glucose 1000 mg/dl Bedside Urine Bilirubin - Negative Bedside Urine Ketone - Negative Urine Specific [place] 1.020 Bedside Urine Occult Blood - Negative Bedside Urine pH 6.0 Bedside Urine Protein +/- 15 Bedside Urine Urobilinogen - Negative Bedside Urine Nitrite - Negative Bedside Urine Leukocytes - Negative Esterase Imaging Data ct lumbar spine: Radiologist's Impression: No acute bony abnormality. Multilevel degenerative disc disease and facet arthrosis. Of note: Moderate to severe spinal canal narrowing at L2-3, L3-4, L4-5. Moderate to severe neural foraminal narrowing at L3-4, L4-5 and L5-S1. Extremity x-ray #1: Radiologist's Impression: No acute osseous abnormality. If pain persists with conservative management, consider repeat x-ray in 10-14 days or cross-sectional imaging. [facility] Narrative Medical decision making narrative: 85-year-old male with chronic low back pain now having difficulty raising or even using his right lower extremity at all. His right femur x-ray did not show any acute fracture or dislocation but due to his immobility the patient will be kept here and evaluated by PT in the a.m. for potential rehab placement. 07 Dr. Vizcarra, received sign-out from Dr. Woods seen evaluated patient myself. Patient 85-year-old male history of type 2 diabetes with neuropathy, atrial fibrillation with a Watchman, coronary artery disease history of CABG x2, hypertension diverticular disease presenting today with right leg pain. He reports he always walks with a right leg limp he was able to walk yesterday morning and throughout the day the leg progressively got weaker. He did not fall. Whenever he tries to lift his leg he has reproducible right lower lumbar pain. He is able to move his toes he has worsening numbness of his right leg. Due to significant reproducible pain in his back I do not think this is a CVA. He does have increasing weakness but it is quite painful unclear if this is a nerve impingement. I do not think it is cauda equina. Imaging reviewed X-ray of femur does not show any osseous abnormality CT lumbar spine shows pretty significant moderate to severe spinal canal narrowing L2 through L5 and moderate to severe neural foraminal narrowing L3 through S1 Blood work CBC no leukocytosis no anemia platelets 104 CMP potassium slightly elevated 5.2 it was previously 4.7 but has been elevated in the past. Creatinine 1.38 which is about baseline for him in fact even better than baseline. No other abnormalities Bilirubin 0.8, AST slightly elevated 118 ALT is 82 alk-phos 64 MRI lumbar spine: Multiple degenerative changes most pronounced at L4 and L5 moderate central canal stenosis has had improvement in the paracentral disc extrusion of L4 he has muscle edema of the left psoas at L2-L3 which is new from prior exam Patient is quite tender on the right side. We will try some steroids to see if that helps his pain The seems to be exacerbation of sciatica. PT not yet evaluated, in patient called out sick Social work evaluation. upon re-evaluation, patient was able to stand on his own now and use a urinal. Patient's condition is improving. <Fernanda Vizcarra, DO - Last Filed: 07/17/25 14:50> Lab Data Labs: Lab Results 07/16/25 07/16/25 07/17/25 Range/Units 08:40 16:25 07:55 WBC 5.3 8.6 D (4.5-11.0) X10^3/uL RBC 4.27 L 4.39 L (4.5-5.9) X10^6/uL Hgb 13.9 14.2 (13.5-17.5) g/dL Hct 42.0 43.2 (41-53) % MCV 98.4 98.4 (80-100) fL MCH 32.7 32.5 (26-34) PG MCHC 33.2 33.0 (30-36) % RDW 15.6 H 15.5 H (11.6-14.8) % Plt Count 104 L 121 L (150-400) X10^3/uL Neut % (Auto) 59.1 87.1 H D (50-75) % Lymph % (Auto) 20.3 L 8.3 L (25-40) % [place] % (Auto) 5.9 4.4 (3-14) % Eos % (Auto) 14.5 H 0.1 L (2-4) % Baso % (Auto) 0.2 0.1 (0-2) % Neut # (Auto) 3100 7500 H (6193-9496) /uL Lymph # (Auto) 1100 700 L (0103-9042) /uL [place] # (Auto) 300 400 (0-900) /uL Eos # (Auto) 800 H 0 (0-450) /uL Baso # (Auto) 0 0 (0-100) /uL Sodium 136 L 135 L 134 L (137-145) mmol/L Potassium 5.2 H 5.2 H 5.9 H (3.4-5.1) mmol/L Chloride 103 101 101 (98-107) mmol/L Carbon Dioxide 26 24 25 (22-32) mmol/L BUN 33 H 33 H 35 H (9-20) mg/dL Creatinine 1.38 H 1.36 H 1.51 H (0.66-1.25) mg/dL Estimated GFR 50 L 51 L 45 L (>60) mL/min BUN/Creatinine Ratio 23.9 H 24.3 H 23.2 H (6-22) Glucose 107 H 135 H 121 H (70-99) mg/dL POC Whole Bld Glucose (70-99) mg/dL Calcium 9.3 9.3 9.4 (8.4-10.2) mg/dL Total Bilirubin 0.8 0.7 (0.2-1.3) mg/dL AST 118 H 91 H (17-59) IU/L ALT 82 H 72 H (<50) IU/L Alkaline Phosphatase 64 64 (38-126) U/L Total Protein 7.5 7.8 (6.3-8.2) g/dL Albumin 4.4 4.6 (3.5-5.0) g/dL Globulin 3.1 3.2 (1.7-4.1) g/dL Albumin/Globulin Ratio 1.4 1.4 (1.0-2.8) 07/17/25 07/17/25 Range/Units 09:56 10:57 WBC (4.5-11.0) X10^3/uL RBC (4.5-5.9) X10^6/uL Hgb (13.5-17.5) g/dL Hct (41-53) % MCV (80-100) fL MCH (26-34) PG MCHC (30-36) % RDW (11.6-14.8) % Plt Count (150-400) X10^3/uL Neut % (Auto) (50-75) % Lymph % (Auto) (25-40) % [place] % (Auto) (3-14) % Eos % (Auto) (2-4) % Baso % (Auto) (0-2) % Neut # (Auto) (3168-3687) /uL Lymph # (Auto) (7953-4253) /uL [place] # (Auto) (0-900) /uL Eos # (Auto) (0-450) /uL Baso # (Auto) (0-100) /uL Sodium 134 L (137-145) mmol/L Potassium 4.5 D (3.4-5.1) mmol/L Chloride 100 (98-107) mmol/L Carbon Dioxide 23 (22-32) mmol/L BUN 36 H (9-20) mg/dL Creatinine 1.52 H (0.66-1.25) mg/dL Estimated GFR 44 L (>60) mL/min BUN/Creatinine Ratio 23.7 H (6-22) Glucose 202 H (70-99) mg/dL POC Whole Bld Glucose 241 H (70-99) mg/dL Calcium 9.1 (8.4-10.2) mg/dL Total Bilirubin (0.2-1.3) mg/dL AST (17-59) IU/L ALT (<50) IU/L Alkaline Phosphatase (38-126) U/L Total Protein (6.3-8.2) g/dL Albumin (3.5-5.0) g/dL Globulin (1.7-4.1) g/dL Albumin/Globulin Ratio (1.0-2.8) Point of Care Testing Glucose POC 241 Urine Dip Bedside Urine Glucose 1000 mg/dl Bedside Urine Bilirubin - Negative Bedside Urine Ketone - Negative Urine Specific [place] 1.020 Bedside Urine Occult Blood - Negative Bedside Urine pH 6.0 Bedside Urine Protein +/- 15 Bedside Urine Urobilinogen - Negative Bedside Urine Nitrite - Negative Bedside Urine Leukocytes - Negative Esterase Imaging Data MR lumbar: Radiologist's Impression: PROCEDURE: MR LUMBAR SPINE WO CON INDICATIONS: right leg numb TECHNIQUE: Noncontrast sagittal T1 spin echo and T2 fast echo, sagittal STIR, and T2 fast spin echo through the lumbar spine. In cases with scoliosis, additional coronal T2 fast spin echo may be performed. COMPARISON: [facility], , L-SPINE WITHOUT CONTRAST, 09/16/2015, 7:36. FINDINGS: Image quality: Excellent Mild straightening lumbar spine. Grade 1 anterolisthesis of L4 on L5. Vertebral body height of the lumbar spine are well maintained. Small active Schmorl's node in the inferior endplate of L1, with marrow edema. Multilevel minimal fibrovascular end plate change. Multilevel disc bulge and disc desiccation. Conus terminates at the level of T12-L1, and is unremarkable. Mild muscle edema of the left psoas at the level of L2-3, new from prior exam. Right neural foraminal stenosis: Mild at L2-3, L3-4, moderate at L4-5. Left neural foraminal stenosis: Mild at L2-3, L3-4, L4-5. The axial images: T12-L1: No central canal stenosis. L1-2: Mild bilateral facet arthropathy. No central canal stenosis L2-3: Moderate bilateral facet arthropathy. Mild disc bulge. Mild central canal stenosis. L3-4: Mild bilateral facet arthropathy. No central canal stenosis. L4-5: Severe bilateral facet arthropathy. Posterior disc uncovering. Moderate central canal stenosis. L5-S1: Mild bilateral facet arthropathy. No central canal stenosis. Visualized sacrum is intact. No abdominal aortic aneurysm. IMPRESSION: 1. Multilevel degenerative changes, most pronounced at L4-5, where there is moderate central canal stenosis , grossly unchanged from prior exam. 2. Interval resolution of previously seen right paracentral disc extrusion at L4. Moderate right neural foraminal stenosis at L4-5, improved. 3. Small active Schmorl's node in the inferior endplate of L1, with marrow edema. 4. Mild muscle edema of the left psoas at the level of L2-3, new from prior exam, nonspecific and may represent mild muscle strain. Dictated by: Doris Deluna M.D. on 07/16/2025 at 10:34 MDM Narrative Medical decision making narrative: 85-year-old male with chronic low back pain now having difficulty raising or even using his right lower extremity at all. His right femur x-ray did not show any acute fracture or dislocation but due to his immobility the patient will be kept here and evaluated by PT in the a.m. for potential rehab placement. 07 Dr. Vizcarra, received sign-out from Dr. Woods seen evaluated patient myself. Patient 85-year-old male history of type 2 diabetes with neuropathy, atrial fibrillation with a Watchman, coronary artery disease history of CABG x2, hypertension diverticular disease presenting today with right leg pain. He reports he always walks with a right leg limp he was able to walk yesterday morning and throughout the day the leg progressively got weaker. He did not fall. Whenever he tries to lift his leg he has reproducible right lower lumbar pain. He is able to move his toes he has worsening numbness of his right leg. Due to significant reproducible pain in his back I do not think this is a CVA. He does have increasing weakness but it is quite painful unclear if this is a nerve impingement. I do not think it is cauda equina. Imaging reviewed X-ray of femur does not show any osseous abnormality CT lumbar spine shows pretty significant moderate to severe spinal canal narrowing L2 through L5 and moderate to severe neural foraminal narrowing L3 through S1 Blood work CBC no leukocytosis no anemia platelets 104 CMP potassium slightly elevated 5.2 it was previously 4.7 but has been elevated in the past. Creatinine 1.38 which is about baseline for him in fact even better than baseline. No other abnormalities Bilirubin 0.8, AST slightly elevated 118 ALT is 82 alk-phos 64 MRI lumbar spine: Multiple degenerative changes most pronounced at L4 and L5 moderate central canal stenosis has had improvement in the paracentral disc extrusion of L4 he has muscle edema of the left psoas at L2-L3 which is new from prior exam Patient is quite tender on the right side. We will try some steroids to see if that helps his pain The seems to be exacerbation of sciatica. PT not yet evaluated, in patient called out sick Social work evaluation. upon re-evaluation, patient was able to stand on his own now and use a urinal. Patient's condition is improving. 07/17/25 Dr. Vizcarra-patient is seen evaluated myself this morning. He is awake alert eating breakfast. Repeat blood work this morning actually does show an elevated potassium of 5.9. He is given Lokelma insulin. Pain seems to be better with dexamethasone and [place]. Family and patient anxious to go home. At this time home health has been set up for them no complaints. Discharge Plan Departure Patient Disposition: Home Clinical Impression: Sciatica, Acute hyperkalemia Strain of lumbar region Qualifiers: Encounter type: initial encounter Qualified Code(s): S39.012A - Strain of muscle, fascia and tendon of lower back, initial encounter Instructions: DI for Back Pain With Sciatica Activity Restrictions/Additional Instructions: *You have been diagnosed with sciatica *What to do: Use walker, home health is in progress but takes time Have potassium rechecked next week *Continue to take medications as directed Prednisone 20 mg once a day for 5 days Paxton 1 tablet every 4-6 hours if needed for severe pain *Follow up with your primary care provider in 2-3 days or call [phone] *Return to ER if you should have increasing weakness pain confusion or any new, worsening or concerning symptoms CONTROLLED SUBSTANCE DISCHARGE (Narcotoic/benzodiazepine/Flexeril/Phenergan) 1. You have been prescribed narcotic medications, it does have acetaminophen/Tylenol/paracetamol in it, DO NOT TAKE MORE THAN 4,00mg in 24 hours of Tylenol. TRAMADOL DOES NOT CONTAIN TYLENOL 2. Please understand that we cannot provide further refills of narcotics, benzodiazepines or controlled substances through the ED and her pain management will need to be through your provider. 3. While on these medications you cannot drive or operate heavy machinery. 4. You cannot sign legal documents or perform any duties such as this. 5. As long as you're taking opiate pain medications he should also be taking a stool softener such as Colace, Dulcolax, MiraLAX or prune juice, to help avoid constipation. Prescriptions: No Action (DME) Glucose: Test Strips See Rx Instructions .Route .MEDSUPPLY Qty: 1 Patient Comments: Use to test blood sugar once daily Rx Instructions: Use to check blood sugar daily. PER PATIENT, CURRENTLY NOT USING 06/20/21 Avodart 0.5 MG capsule 0.5 mg PO QDAY Qty: 0 omega [id number] oil [Fish Oil] 1,000 mg (120 mg-180 mg) capsule 2 cap PO Q DAY Qty: 0 Patient Comments: patient states he thinks dose is 500 mg atorvastatin 40 mg tablet 40 mg PO QPM Qty: 90 3RF metoprolol succinate 25 mg tablet extended release 24 hr 50 mg PO DAILY Qty: 180 3RF metformin 500 mg tablet 500 mg PO BID Qty: 180 3RF hydrocodone-acetaminophen 5-325 mg tablet 1 tab PO Q6H PRN (Reason: pain) Qty: 20 0RF (DME) Hospital Bed See Rx Instructions .Route .MEDSUPPLY Qty: 1 0RF Rx Instructions: As directed. [facility] in [place]. (DME) Recliner chair with lift See Rx Instructions .Route .MEDSUPPLY Qty: 1 0RF Rx Instructions: As directed. [facility] in [place]. (DME) Walker See Rx Instructions .Route .MEDSUPPLY Qty: 1 0RF Rx Instructions: As directed. [facility] in [place]. (DME) Wheelchair See Rx Instructions .Route .MEDSUPPLY Qty: 1 0RF Rx Instructions: As directed. [facility] in [place]. (DME) Grab Bar See Rx Instructions .Route .MEDSUPPLY Qty: 1 0RF Rx Instructions: As directed. [facility] in [place]. (DME) Male Urinal See Rx Instructions .Route .MEDSUPPLY Qty: 1 0RF Rx Instructions: As directed. [facility] in [place]. (DME) Raised Toilet Seat See Rx Instructions .Route .MEDSUPPLY Qty: 1 0RF Rx Instructions: As Directed. [facility] in [place]. (DME) Commode See Rx Instructions .Route .MEDSUPPLY Qty: 1 0RF Rx Instructions: As directed. [facility] in [place]. (DME) Gait Belt See Rx Instructions .Route .MEDSUPPLY Qty: 1 0RF Rx Instructions: As directed. [facility] in [place]. (DME) Shower chair See Rx Instructions .Route .MEDSUPPLY Qty: 1 0RF Rx Instructions: As directed. [facility] in [place]. With arms and back. levothyroxine [Synthroid] 125 mcg tablet 125 mcg PO DAILY Qty: 90 2RF Jardiance 10 mg tablet 10 mg PO DAILY Glucosamine Sulfate 1,000 mg PO DAILY Metamucil (sugar) Powder 1 tbsp PO DAILY tamsulosin [Flomax] 0.4 mg capsule 0.4 mg PO BID aspirin [Adult Low Dose Aspirin] 81 mg tablet,delayed release (DR/EC) 81 mg PO DAILY Veltassa 16.8 gram powder in packet 16.8 g PO DAILY amlodipine 5 mg tablet 5 mg PO DAILY hydrochlorothiazide 25 mg tablet 25 mg PO DAILY ascorbic acid (vitamin C) [Vitamin C] 500 mg Tablet 500 mg PO DAILY Referrals: Jomar Rodney MD [Primary Care Provider, Internal Medicine] Stand Alone Forms: Patient Portal/API
--- NOTE | 2025-07-15 20:58 | DI.RAD.S_ITS ---
PROCEDURE: XR FEMUR RT MIN 2V INDICATIONS: pain TECHNIQUE: 4 views of the femur were acquired. COMPARISON: None. FINDINGS: Bones: No fractures or dislocations. Degenerative changes of the knee and hip. No suspicious bony lesions. Soft tissues: No suspicious soft tissue calcifications or masses. Atherosclerotic vascular calcifications IMPRESSION: No acute osseous abnormality. If pain persists with conservative management, consider repeat x-ray in 10-14 days or cross-sectional imaging. Dictated by: Ran Kim M.D. on 07/15/2025 at 21:27 Approved by: Ran Kim M.D. on 07/15/2025 at 21:27
[2025-07-16] VITALS (15 sets, daily range): BP systolic 115–174; BP diastolic 66–98; PULSE 41–84; RESP 17–18; O2SAT 94–100
--- NOTE | 2025-07-16 01:30 | PC.NURSE ---
Assumed care of pt at this time. Verbal order by Dr. Feng to switch to QShift VS to allow pt a good night's rest. Referral to PT/OT evaluation in the AM.
--- NOTE | 2025-07-16 07:21 | DI.MRI.S_ITS ---
PROCEDURE: MR LUMBAR SPINE WO CON INDICATIONS: right leg numb TECHNIQUE: Noncontrast sagittal T1 spin echo and T2 fast echo, sagittal STIR, and T2 fast spin echo through the lumbar spine. In cases with scoliosis, additional coronal T2 fast spin echo may be performed. COMPARISON: [facility], MR, L-SPINE WITHOUT CONTRAST, 09/16/2015, 7:36. FINDINGS: Image quality: Excellent Mild straightening lumbar spine. Grade 1 anterolisthesis of L4 on L5. Vertebral body height of the lumbar spine are well maintained. Small active Schmorl's node in the inferior endplate of L1, with marrow edema. Multilevel minimal fibrovascular end plate change. Multilevel disc bulge and disc desiccation. Conus terminates at the level of T12-L1, and is unremarkable. Mild muscle edema of the left psoas at the level of L2-3, new from prior exam. Right neural foraminal stenosis: Mild at L2-3, L3-4, moderate at L4-5. Left neural foraminal stenosis: Mild at L2-3, L3-4, L4-5. The axial images: T12-L1: No central canal stenosis. L1-2: Mild bilateral facet arthropathy. No central canal stenosis L2-3: Moderate bilateral facet arthropathy. Mild disc bulge. Mild central canal stenosis. L3-4: Mild bilateral facet arthropathy. No central canal stenosis. L4-5: Severe bilateral facet arthropathy. Posterior disc uncovering. Moderate central canal stenosis. L5-S1: Mild bilateral facet arthropathy. No central canal stenosis. Visualized sacrum is intact. No abdominal aortic aneurysm. IMPRESSION: 1. Multilevel degenerative changes, most pronounced at L4-5, where there is moderate central canal stenosis , grossly unchanged from prior exam. 2. Interval resolution of previously seen right paracentral disc extrusion at L4. Moderate right neural foraminal stenosis at L4-5, improved. 3. Small active Schmorl's node in the inferior endplate of L1, with marrow edema. 4. Mild muscle edema of the left psoas at the level of L2-3, new from prior exam, nonspecific and may represent mild muscle strain. Dictated by: Doris Deluna M.D. on 07/16/2025 at 10:34 Approved by: Doris Deluna M.D. on 07/16/2025 at 10:46
[2025-07-16] MEDS: ACETAMINOPHEN IV 1,000 MG/100 ML VIAL 400 MG IV (08:45)
[2025-07-16 08:52] LABS: Add Manual Diff / Slide Review NO; Hematocrit 42.0 % (41-53); Hemoglobin 13.9 g/dL (13.5-17.5); Lymphocytes Absolute Auto 1100 /uL (1100-4500); Mean Corpuscular HGB Conc 33.2 % (30-36); Mean Corpuscular Hemoglobin 32.7 PG (26-34); Mean Corpuscular Volume 98.4 fL (80-100); Platelet Count 104 X10^3/uL (150-400)
[2025-07-16 09:05] LABS: Alanine Aminotransferase 82 IU/L (<50); Albumin 4.4 g/dL (3.5-5.0); Albumin Globulin Ratio 1.4 (1.0-2.8); Alkaline Phosphatase 64 U/L (38-126); Blood Urea Nitrogen 33 mg/dL (9-20); Calcium 9.3 mg/dL (8.4-10.2); Carbon Dioxide 26 mmol/L (22-32); Chloride 103 mmol/L (98-107); Estimated Glomerular Filt Rate 50 mL/min (>60); Globulin 3.1 g/dL (1.7-4.1); Glucose 107 mg/dL (70-99); HEMOLYSIS 19 (0-50); Potassium 5.2 mmol/L (3.4-5.1); Sodium 136 mmol/L (137-145); Total Protein 7.5 g/dL (6.3-8.2)
--- NOTE | 2025-07-16 15:07 | CM.DANOTE ---
DCP Assessment Note: Pt is a 85yo male, resident of [place], is seen in the ED for R lower back pain, not able to ambulate for the past two days. Pt lives in a house with his , Jennifer. Pt's Primary Care Provider is Dr. Jomar Rodney and insurance is Medicare and [employer]. Reviewed chart and discussed with multidisciplinary team pt's medical status and initial discharge needs. Per ED Provider, imaging shows no fractures or breaks, pain is acute on chronic; pending ambulation trial and PT evaluation to assist with next steps. Per RN, pt obtained IV Tylenol today and only states he is in pain when leg is moved. PT orders are in for evaluation, awaiting results. DCP met w/patient at bedside; introduced self and role. Present in the room is pt's , Jennifer, and son, Jomar. Patient was found in bed, alert and oriented, cooperative with assessment. Pt confirmed living situation and good support in , family is local. Pt expressed preference in SNF Rehab as he is unable to ambulate without pain (supported) and cannot move right leg. Pt has no prior history of home health or SNF Rehab. Per pt, no caregivers in place at this time. Pt agreeable to working with therapies and following their recommendations. Pt stated this is very new for pt not to be able to move and there are concerns for him returning home; they explain there is NO safe discharge home plan as is not able to assist when pt is non-ambulatory and pt sons are not able to stay with them. BIOCHEMISTRY TEACHER discussed home health and EMS Lift Assist for discharge plans at home, pt declined and stated she would like to pursue possible admission/SNF Rehab. Pt and state they do not have resources to privately pay for Rehab. BIOCHEMISTRY TEACHER reviewed Medicare Choice List with pt and . They identify that their preferences are for [facility] then [facility] if [facility] not available. Plan: Awaiting PT/OT evaluations and recommendation for evolving discharge plans; ED BIOCHEMISTRY TEACHER collaborating with multidisciplinary team for discharge plans. Jackie Salinas [facility] Discharge Planning/Care Management CM Discharge Assessment Start: 07/16/25 15:02 Freq: Status: Active Protocol: Document 07/16/25 15:02 MW (Rec: 07/16/25 15:04 MW [id number]) Discharge Planning Assessment Assigned Discharge VERONICA Mejia Information Management Specialist Provider Dr. Jomar Rodney Insurance Medicare, DPOA/Assigned Jennifer Montgomery, Spouse Designee Name Contact Information [phone] Advance Directives? Yes Has Patient been No admitted in last 30 days? Prior Living House Arrangements Household Members spouse Type of Drives own vehicle transporation used prior to admit Independent with ADL Yes 's Is patient alert and Yes oriented? Patient/Family [facility] Facility Preference Comment 1. [facility] (utmost preference) 2. [facility] Review Status In Process Please Provide Date 07/16/25 Initial DC Assessment Was Performed Next Review Type Continued Stay Review
--- NOTE | 2025-07-16 16:27 | PT.IIE ---
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) Status post colectomy Status post coronary artery bypass graft Medical History (Last Updated 06/29/25 @ 10:03 by Jomar Rodney MD) BPH (benign prostatic hyperplasia) Chronic a-fib Chronic renal failure, stage 2 (mild) Coronary artery disease COVID-19 virus infection (~04/2024) Diverticular disease Elevated PSA Food bolus obstruction of intestine GI bleed HTN (hypertension) Hyperlipemia Hypothyroidism Presence of Watchman left atrial appendage closure device (~12/2020) Type 2 diabetes with nephropathy Physical Therapy Inpatient Evaluation/Re-Eval M1 PT/OT-IP Prior Functional Status Start: 07/16/25 15:27 Freq: Status: Active Protocol: Document 07/16/25 15:28 [facility] (Rec: 07/16/25 18:26 [facility] [id number]) Medical Review Prior Functional Status Medical History Yes Reviewed Communication [place] Mobility and Gait no AD Activities of Daily indep w/ADLs, drives, housework Living and IADL's Social History Household Members spouse Living Arrangements House Number of Floors ( Two Floors Floors) Number of Stairs To ramp entry Enter/Railing? Home Environment High Toilet,Walk in Shower,Tub/Shower Home Equipment Grab Bars In Shower Employment Status Retired Additional Social tub is in the downstairs with grab bar, walk in History Comment upstairs M2 PT-IP Current Condition Start: 07/16/25 15:27 Freq: Status: Active Protocol: Document 07/16/25 15:28 [facility] (Rec: 07/16/25 18:26 [facility] [id number]) Physical Therapy Current Condition Current Condition Evaluation Date 07/16/25 Treatment Diagnosis R back pain and leg pain, difficulty in walking M3 PT-IP Subjective Start: 07/16/25 15:27 Freq: Status: Active Protocol: Document 07/16/25 15:28 [facility] (Rec: 07/16/25 18:26 [facility] [id number]) Subjective Physical Therapy Visit Type Type Initial Evaluation Visit Start Time 15:30 Visit Stop Time 16:17 Number of SUPERINTENDENT SALES Visits 0 Physical Therapy Visit Comments Patient Comments pt and concerned being able to move at home. does notes pt has some progressive memory issues Therapy Pain Assessment Pain When Pain Assessed During Mobility Pain Present Pain Present Pain Reported M4 PT-IP Mobility and Gait Start: 07/16/25 15:27 Freq: Status: Active Protocol: Document 07/16/25 15:28 [facility] (Rec: 07/16/25 18:26 [facility] [id number]) PT-Bed Mobility Assessment Rolling Type of Rolling Roll to Right Level of Assist Minimal Assistance Supine to Sit Supine to Sit Minimal Assistance,Head of Bed Elevated Sit to Supine Sit to Supine Minimal Assistance,Head of Bed Elevated Scooting Scooting to Edge of Contact Guard Assistance Bed PT-Transfer Assessment Sit to and From Stand Sit to and from Contact Guard Assistance,Use of Upper Extremities Stand Equipment Transfer Assistive Gait Belt,Front Wheeled Walker Device Orthotic/Prosthetic No Devices or Brace: Comments Mobility Comments supine to sit and rolling w/min A for RLE movement, scoot to EOB SBA. unable to put on socks and PT had to do it for him. He stood from bed (higher bed) CGA then amb w/FWW and CGA about 150ft w/progressively inc step length. He had 2 LOB. 1x when PT helping pull up brief and another when walking into room where PT had to assist w/mod A. Sit to supien MIn A and left with call light in reach. Gait Assessment Gait Gait Assistance Contact Guard Assist,Moderate Assistance Required: Distance (Feet) 150 Able to Maintain Yes Weight Bearing Status During Gait Assistive Devices Assistive Device Gait Belt,Front Wheeled Walker Gait Deviations General Gait Pattern Antalgic,Decreased Stride Length,Decreased Feet Clearance Factors Limiting Gait Function Factors Limiting Decreased Activity Tolerance,Decreased Strength,Limited Gait Function Range of Motion,Pain,Poor Balance PT-Balance Assessment Sitting Balance and Reactions Static Sitting Good Balance Ability Dynamic Sitting Fair Balance Ability Standing Balance and Reactions Static Standing Poor Balance Ability Dynamic Standing Poor Balance Ability Device Used FWW M5 PT-IP Objective Assessments Start: 07/16/25 15:27 Freq: Status: Active Protocol: Document 07/16/25 15:28 [facility] (Rec: 07/16/25 18:26 [facility] [id number]) Orientation Orientation/Cognition Level of Alertness Alert Language Function Hard of Hearing Ability Safety Awareness Decreased Safety Awareness Memory Description Short Term Impaired Gross Range of Motion Lower Extremity ROM Assessment Right Impaired Impairments unable to do heel slide w/o assist, lacking R DF Strength Lower Extremity Strength Assessment Right Impaired Hip 3-/5 R Knee 4/5 R Sensation Assessment Sensation Gross Sensation WNL Muscle Tone Muscle Tone WNL No M6 PT-IP Treatment Start: 07/16/25 15:27 Freq: Status: Active Protocol: Document 07/16/25 15:28 [facility] (Rec: 07/16/25 18:26 [facility] [id number]) Physical Therapy Treatment Education Education Provided Safety Other Treatments Other Treatment edu to get equipment for home: WC, bedside commode, Performed shower chair, FWW M7 PT-IP Assessment and Plan Start: 07/16/25 15:27 Freq: Status: Active Protocol: Document 07/16/25 15:28 [facility] (Rec: 07/16/25 18:26 [facility] [id number]) PT Summary Assessment and Plan Potential Rehabilitation Good Potential Status of Condition Evolving at Evaluation Summary Impairments Pain,ROM,Strength,Balance,Bed Mobility,Transfers,Gait, Activity Tolerance Assessment Summary Pt presents w/acute worsening of chronic R back pain w/ RLE pain and weakness. He is improved when PT present for session but still requires assist w/moving RLE although improves w/inc movement in session. He demonstrates significantly unstable gait even w/FWW and had 2 LOB requiring mod A to catch pt. He is at risk for falls so at this time pt would benefit from SNF rehab. Educated family on home equipment needs d/t possible insurance would not cover SNF rehab. Goals Bed Mobility Goal Independent Transfer Goal Independent Gait Goal Independent Gait Distance 200ft Days to Meet Goals 5 Frequency of Treatment Frequency Of Once a Day Treatment Treatment Plan Physical Therapy Bed Mobility Training,Transfer Training,Gait Training, Treatment Plan Therapeutic Exercise,Balance Retraining,Neuromuscular Re-ed Weight Bearing Status Weight Bearing Full Weight Bearing Status Recommendations To Nursing Amount of Assist 1 Person Assist Needed Discharge Recommendations PT Discharge SNF Rehab Recommendations Equipment Needed for FWW, WC, BSC, shower chair Home Before Discharge Transportation Needs Wheelchair/Cabulance at Discharge - PT assist 1
[2025-07-16 16:52] LABS: Blood Urea Nitrogen 33 mg/dL (9-20); Calcium 9.3 mg/dL (8.4-10.2); Carbon Dioxide 24 mmol/L (22-32); Chloride 101 mmol/L (98-107); Estimated Glomerular Filt Rate 51 mL/min (>60); Glucose 135 mg/dL (70-99); HEMOLYSIS 30 (0-50); Potassium 5.2 mmol/L (3.4-5.1); Sodium 135 mmol/L (137-145)
--- NOTE | 2025-07-16 20:27 | CM.SWNOTE ---
ED AIR TESTER Note: Per PT, pt recommended for SNF. Per ED Provider, still no admittable diagnosis - would be boarding in ED until social admission criteria is met. AIR TESTER spoke with pt and pt son, Jomar (ph# [phone]) who states they will be working on obtaining recommended DME in the morning as well as clearing the home for discharge home. Now agreeable to home health plan, no preference for agency. Pt son requests to coordinate with him and his , Anayeli (ph# [phone]) to assist with discharge plans. AIR TESTER to send home health referral in the morning, *will need signed home health orders. AIR TESTER discussed above with pt RN and ED Provider. Plan: Pt to board in ED until family can coordinate safe discharge plan vs. social admission. ANGEL BookerSW
--- NOTE | 2025-07-16 21:13 | PC.NURSE ---
Pt resting quielty with eyes closed, resps even and not labored. No distress noted at this time. Pt rouses easily to verbal stimuli and engages with RN appropriately. No family noted at the bedside at this time. Pt states they have left for the evening to prepare the house for his discharge tomorrow. Spot check vs, WNL at this time. Pt states pain in RLE only with movement but currently lying in comfortable position. No complaints or requests at this time. Call light within reach.
--- NOTE | 2025-07-16 22:59 | PC.NURSE ---
Assisted pt with removal of sweatshirt stating he is hot, and repositioning in ED stretcher. Pt with no other complaints or requests at this time. Pt remains in exam room close to nurses station for frequent observation for patient safety.
[2025-07-17] VITALS (13 sets, daily range): BP systolic 113–168; BP diastolic 57–102; PULSE 69–87; RESP 13–28; TEMP 36.4; O2SAT 96–98
--- NOTE | 2025-07-17 00:02 | PC.NURSE ---
Pt resting quielty with eyes closed, resps evena nd not labored. No distress noted at this time. Call light within reach. Pt remains in exam room close to nurses station for frequent observation.
--- NOTE | 2025-07-17 00:51 | PC.NURSE ---
Pt assisted to standing position a with use of urinal.
--- NOTE | 2025-07-17 03:01 | PC.NURSE ---
Pt resting quietly with eyes closed, resps even and not labored. No distress noted at this time. Call light remains within reach. Pt remains in exam room close to nurses station for frequent observation.
--- NOTE | 2025-07-17 05:20 | PC.NURSE ---
Pt assisted to side of bed sitting position for urinal use. Disposable pants placed per pt request. Pt placed back in stretcher with assistance. No other complaints or concerns at this time. Call light within reach. Pt remains in exam room close to nurses station for frequent observation.
[2025-07-17 08:04] LABS: Add Manual Diff / Slide Review NO; Hematocrit 43.2 % (41-53); Hemoglobin 14.2 g/dL (13.5-17.5); Lymphocytes Absolute Auto 700 /uL (1100-4500); Mean Corpuscular HGB Conc 33.0 % (30-36); Mean Corpuscular Hemoglobin 32.5 PG (26-34); Mean Corpuscular Volume 98.4 fL (80-100); Platelet Count 121 X10^3/uL (150-400)
[2025-07-17 08:18] LABS: Alanine Aminotransferase 72 IU/L (<50); Albumin 4.6 g/dL (3.5-5.0); Albumin Globulin Ratio 1.4 (1.0-2.8); Alkaline Phosphatase 64 U/L (38-126); Blood Urea Nitrogen 35 mg/dL (9-20); Calcium 9.4 mg/dL (8.4-10.2); Carbon Dioxide 25 mmol/L (22-32); Chloride 101 mmol/L (98-107); Estimated Glomerular Filt Rate 45 mL/min (>60); Globulin 3.2 g/dL (1.7-4.1); Glucose 121 mg/dL (70-99); HEMOLYSIS < 15 (0-50); Sodium 134 mmol/L (137-145); Total Protein 7.8 g/dL (6.3-8.2)
[2025-07-17 08:19] LABS: Potassium 5.9 mmol/L (3.4-5.1)
[2025-07-17] MEDS: DEXTROSE 50 % IN WATER 25 GM/50 ML SYRINGE IV (08:49)
[2025-07-17] MEDS: SODIUM ZIRCONIUM CYCLOSILICATE 10 GM POWD.PACK PO (08:49)
[2025-07-17] MEDS: INSULIN REGULAR 100 UNIT/ML 3 ML VIAL IV (08:50)
--- NOTE | 2025-07-17 09:26 | CM.SWNOTE ---
ED PULMONOLOGY TECHNICIAN Note: Reviewed EMR and discussed pt with ED Provider who states pt is now hyperkalemic and will be treated in the ED but otherwise cleared to discharge home. Per RN, pt son is available to transport pt home and he is currently obtaining recommended DME. PULMONOLOGY TECHNICIAN called [facility] per vendor calendar, it is reported they have start of care dates as soon as tomorrow, 07/18. PULMONOLOGY TECHNICIAN sent referral/clinicals to [facility] via secure email, included signed MD orders. Signed orders scanned into pt chart. PULMONOLOGY TECHNICIAN discussed above with pt and son (via phone call) - provided [facility] informational pamphlet and Senior Resource guide. Pt appreciative of information. PULMONOLOGY TECHNICIAN discussed above with ED Provider and RN. Plan: Pt to discharge home with son to transport on 07/17 or when medically cleared. ED staff following for coordination of discharge. ANGEL BookerSW
[2025-07-17 11:17] LABS: Blood Urea Nitrogen 36 mg/dL (9-20); Calcium 9.1 mg/dL (8.4-10.2); Carbon Dioxide 23 mmol/L (22-32); Chloride 100 mmol/L (98-107); Estimated Glomerular Filt Rate 44 mL/min (>60); Glucose 202 mg/dL (70-99); HEMOLYSIS < 15 (0-50); Potassium 4.5 mmol/L (3.4-5.1); Sodium 134 mmol/L (137-145)
== END 2025-07-17 12:41 | disposition home or self-care (01) ==
PROVIDERS: Emergency Medicine; Emergency Provider Emergency Medicine; PCP Internal Medicine
DX: S39.012A Strain of muscle, fascia and tendon of lower back, initial encounter (principal); M54.31 Sciatica, right side; R20.0 Anesthesia of skin; E87.5 Hyperkalemia
CPT/HCPCS: 36415; 72131; 72148; 73552; 80048; 80053; 81003; 82962; 85025; 96365; 96375; 96376; 97162; 97530; 99284; J0131; J1100

== ENCOUNTER → 2025-07-31 15:29 | Outpatient (CLI) | payer MEDICARE, OTHER, SELFPAY ==
[2025-07-31 16:52] LABS: Hemoglobin A1C% w Est Avg Glu 6.5 % (4.0-6.0)
[2025-07-31 17:12] LABS: Alanine Aminotransferase 37 IU/L (<50); Albumin 4.3 g/dL (3.5-5.0); Albumin Globulin Ratio 1.5 (1.0-2.8); Alkaline Phosphatase 78 U/L (38-126); Blood Urea Nitrogen 50 mg/dL (9-20); Calcium 10.3 mg/dL (8.4-10.2); Carbon Dioxide 30 mmol/L (22-32); Chloride 94 mmol/L (98-107); Estimated Glomerular Filt Rate 30 mL/min (>60); Globulin 2.8 g/dL (1.7-4.1); Glucose 108 mg/dL (70-99); HEMOLYSIS < 15 (0-50); Potassium 4.7 mmol/L (3.4-5.1); Sodium 133 mmol/L (137-145); Total Protein 7.1 g/dL (6.3-8.2)
[2025-07-31 17:33] LABS: Free T3, Triiodothyronine Free 1.29 pg/mL (2.77-5.27); Free T4, Direct Thyroxine 0.26 ng/dL (0.78-2.19)
[2025-07-31 18:08] LABS: Vitamin B12 728 pg/mL (239-931)
[2025-07-31 18:40] LABS: Thyroid Stimulating Hormone 303 uIU/mL (0.47-4.68)
== END ==
PROVIDERS: PCP Internal Medicine; Referring Provider Physician Assistant; Visit Provider Physician Assistant
DX: E11.21 Type 2 diabetes mellitus with diabetic nephropathy (principal); R41.3 Other amnesia; E87.5 Hyperkalemia; R44.3 Hallucinations, unspecified; E78.2 Mixed hyperlipidemia; I10 Essential (primary) hypertension; E03.9 Hypothyroidism, unspecified
CPT/HCPCS: 36415; 80053; 82607; 83036; 84439; 84443; 84481

== ENCOUNTER → 2025-08-06 08:10 | Outpatient (CLI) | payer MEDICARE, OTHER, SELFPAY ==
--- NOTE | 2025-08-06 08:11 | DI.MRI.S_ITS ---
PROCEDURE: MR HEAD/BRAIN WO/W CON INDICATIONS: confusion, hallucinations x 2 weeks TECHNIQUE: Noncontrast axial T1 spin echo, axial T2 fast spin echo, sagittal and axial FLAIR, coronal T2 fast spin echo, axial gradient echo, axial diffusion and ADC through the brain. After the administration of contrast, axial and coronal and sagittal T1 spin echo with fat saturation through the brain. COMPARISON: None. FINDINGS: Image quality: Excellent. CSF spaces: Basal cisterns are patent. No extra-axial fluid collections. Ventricles are normal in size and shape. Brain: No midline shift. No intracranial bleeds or masses. No abnormal intracranial enhancement. There is cerebral volume loss for age. There is moderate, age- appropriate periventricular white matter chronic small vessel ischemic change. The brainstem appears normal. Diffusion-weighted images demonstrate no acute infarct. No chronic ischemic insults. Normal intravascular flow voids are present. Skull and face: Calvarial marrow is normal in signal. Orbits appear normal. Sinuses: Right sphenoid sinus is completely opacified. Other paranasal sinuses are clear. Mild patchy right mastoid opacification. IMPRESSION: 1. No acute intracranial process. 2. Moderate age-appropriate small-vessel ischemic change. 3. Right sphenoid sinus disease. Dictated by: Bret Betancourt M.D. on 08/06/2025 at 9:57 Approved by: Bret Betancourt M.D. on 08/06/2025 at 9:59
== END ==
LOC: MRI 08:11
PROVIDERS: PCP Internal Medicine; Referring Provider Physician Assistant; Visit Provider Physician Assistant
DX: R44.3 Hallucinations, unspecified (principal); R41.82 Altered mental status, unspecified; J32.3 Chronic sphenoidal sinusitis
CPT/HCPCS: 70553; A9579

== ENCOUNTER → 2025-09-06 15:34 | Outpatient (CLI) | payer MEDICARE, OTHER, SELFPAY ==
[2025-09-06 18:12] LABS: Alanine Aminotransferase 13 IU/L (<50); Albumin 4.1 g/dL (3.5-5.0); Albumin Globulin Ratio 1.6 (1.0-2.8); Alkaline Phosphatase 69 U/L (38-126); Blood Urea Nitrogen 46 mg/dL (9-20); Calcium 9.9 mg/dL (8.4-10.2); Carbon Dioxide 26 mmol/L (22-32); Chloride 103 mmol/L (98-107); Estimated Glomerular Filt Rate 48 mL/min (>60); Globulin 2.6 g/dL (1.7-4.1); Glucose 211 mg/dL (70-99); HEMOLYSIS < 15 (0-50); Potassium 4.5 mmol/L (3.4-5.1); Sodium 140 mmol/L (137-145); Total Protein 6.7 g/dL (6.3-8.2)
[2025-09-06 18:31] LABS: Free T4, Direct Thyroxine 1.82 ng/dL (0.78-2.19)
[2025-09-06 18:45] LABS: Thyroid Stimulating Hormone 0.350 uIU/mL (0.47-4.68)
== END ==
PROVIDERS: PCP Internal Medicine; Referring Provider Internal Medicine; Visit Provider Internal Medicine
DX: E03.9 Hypothyroidism, unspecified (principal); N18.4 Chronic kidney disease, stage 4 (severe)
CPT/HCPCS: 36415; 80053; 84439; 84443

== ENCOUNTER → 2025-09-17 12:21 | Outpatient (CLI) | payer MEDICARE, OTHER, SELFPAY ==
[2025-09-17 13:49] LABS: Hematocrit 40.0 % (41-53); Hemoglobin 13.4 g/dL (13.5-17.5)
[2025-09-17 14:24] LABS: Blood Urea Nitrogen 41 mg/dL (9-20); Calcium 9.8 mg/dL (8.4-10.2); Carbon Dioxide 28 mmol/L (22-32); Chloride 100 mmol/L (98-107); Estimated Glomerular Filt Rate 57 mL/min (>60); Glucose 141 mg/dL (70-99); HEMOLYSIS < 15 (0-50); Potassium 4.8 mmol/L (3.4-5.1); Sodium 138 mmol/L (137-145)
[2025-09-17 14:47] LABS: Protein (Total) Urine Random 21 mg/dL (0-12); Protein Creatinine Ratio Urine 0.19 GRAM/24H
== END ==
PROVIDERS: PCP Internal Medicine; Referring Provider Internal Medicine; Visit Provider Student in an Organized Health Care Education/Training Program
DX: D70.9 Neutropenia, unspecified (principal); D63.1 Anemia in chronic kidney disease; N05.9 Unspecified nephritic syndrome with unspecified morphologic changes; N25.81 Secondary hyperparathyroidism of renal origin; R80.9 Proteinuria, unspecified
CPT/HCPCS: 36415; 80048; 82570; 83970; 84156; 85014; 85018